=== PATIENT | male | born 1955 | race Caucasian/White ===

== ENCOUNTER 2017-03-19 19:00 | Inpatient (IN) | payer MEDICARE, OTHER ==
[~2017-03-19] VITALS: Ht 167.6 cm; Wt 61.3 kg
[~2017-03-19 19:00] MED LIST: ALB0.5UD IH; ALBU6.7H3 IH; ATR0.5NEB IH; ATRIN IH; BECL8.7A3 IH; CITA20TA11 PO; CYCL-394 PO; GABA-338 PO; HYDR-3965 PO; LEVO500T2 PO; OMEP-84 PO; PRED10TA23 PO; WEL100T PO; ZIPR60CA5 PO
[2017-03-19] MEDS ORDERED: acetaminophen 325mg tablet PO STA (19:18)
[2017-03-19] MEDS ORDERED: ipratropium/albuterol 3ml nebule NEB ONE (19:20)
[2017-03-19] MEDS ORDERED: normal saline 1000ML IV soln IV ONE (19:20)
[2017-03-19 20:03] LABS: ALANINE AMINOTRANSFERASE 27 U/L (12-78); ALBUMIN 3.2 G/DL (3.4-5.0); ALBUMIN/GLOBULIN RATIO 0.8 (1.1-1.5); ALKALINE PHOSPHATASE 81 IU/L (46-116); ANION GAP 7 (8-16); ASPARTATE AMINO TRANSFERASE 17 U/L (10-37); BILIRUBIN,TOTAL 0.3 MG/DL (0.1-1.0); BLOOD UREA NITROGEN 17 MG/DL (7-18); BUN/CREATININE RATIO 12.5 (5.4-32.0); CALCIUM 8.5 MG/DL (8.5-10.1); CHLORIDE 102 MMOL/L (99-107); CREATININE 1.36 MG/DL (0.60-1.10); GLUCOSE 160 MG/DL (70-104); POTASSIUM 4.2 MMOL/L (3.5-5.1); SODIUM 136 MMOL/L (135-145); TOTAL PROTEIN 7.1 G/DL (6.4-8.2); eGFR 53 ML/MIN
[2017-03-19 20:18] LABS: BASOPHILS % (AUTO) 0.4 % (0-1); EOSINOPHILS # (AUTO) 0.1 X10'3 (0-0.9); EOSINOPHILS % (AUTO) 0.8 % (0-6); HEMATOCRIT 29.6 % (42.0-52.0); HEMOGLOBIN 9.8 g/dl (14.0-17.9); LYMPHOCYTES # (AUTO) 1.9 X10'3 (1.1-4.8); LYMPHOCYTES % (AUTO) 29.3 % (21-51); MEAN CORPUSCULAR HEMOGLOBIN 27.8 PG (27.0-31.0); MEAN CORPUSCULAR HGB CONC 33.2 % (33.0-36.5); MEAN CORPUSCULAR VOLUME 83.6 FL (78-98); MEAN PLATELET VOLUME 8.5 FL (7.4-10.4); MONOCYTES # (AUTO) 1.1 X10'3 (0-0.9); MONOCYTES % (AUTO) 16.2 % (2-12); NEUTROPHILS # (AUTO) 3.5 X10'3 (1.8-7.7); NEUTROPHILS % (AUTO) 53.3 % (42-75); PLATELET COUNT 159 X10'3 (140-440); RED BLOOD COUNT 3.54 X10'6 (4.70-6.10); RED CELL DISTRIBUTION WIDTH 14.7 % (11.5-14.5); WHITE BLOOD COUNT 6.6 X10'3 (4.5-11.0)
[2017-03-19 20:29] LABS: INR 1.1 INR; PARTIAL THROMBOPLASTIN TIME 28 SECONDS (22-32); PROTHROMBIN TIME 11.2 SECONDS (9.0-12.0)
[2017-03-19] MEDS ORDERED: ondansetron/PF 4mg/2ml inj IV ONE (20:55)
[2017-03-19] MEDS ORDERED: ibuprofen tablet 400 MG TABLET PO ONE (20:55)
[2017-03-19] MEDS ORDERED: oseltamivir phos 75mg capsule PO ONE (21:20)
[2017-03-19] MEDS ORDERED: MESSAGE TO PHARMACY PO ONE (22:05)
[2017-03-19] MEDS ORDERED: dextrose 50%-water 50ml dispensing syringe IV PRN ×2 (22:05)
[2017-03-19] MEDS ORDERED: acetaminophen 325mg tablet PO PRN (22:05)
[2017-03-19] MEDS ORDERED: magnesium hydroxide 30ml (MOM) UD suspension PO PRN (22:05)
[2017-03-19] MEDS ORDERED: dextrose ORAL solution 15 GM/59 ML bottle PO PRN ×2 (22:05)
[2017-03-19] MEDS ORDERED: glucagon, human recombinant 1mg kit SUBCUT PRN (22:05)
[2017-03-19] MEDS ORDERED: mag hydrox/Alum hydrox/simeth 30ml oral suspension PO PRN (22:05)
[2017-03-19] MEDS ORDERED: ondansetron/PF 4mg/2ml inj IV PRN (22:05)
[2017-03-19] MEDS ORDERED: ipratropium/albuterol 3ml nebule NEB PRN (22:05)
[2017-03-19] MEDS ORDERED: methylPREDNISolone sod succ 125mg/2ml vial IV ONE (22:10)
[2017-03-19] MEDS: sodium chloride 0.45% 1,000 ML IV SCH (23:40)
[2017-03-20 00:18] LABS: CLARITY,URINE Cloudy (Clear); COLOR,URINE Yellow (Yellow); GLUCOSE, URINE Negative (Neg); KETONES,URINE Negative (Neg); LEUKOCYTE ESTERASE ,URINE Small (Neg); NITRITES, URINE Negative (Neg); OCCULT BLOOD,URINE Negative (Neg); PH,URINE 7.5 (4.8-8.0); PROTEIN,URINE Trace mg/dl (Neg)
[2017-03-20 00:19] LABS: UA COLLECTION TYPE CLN CATCH MIDSTREAM
[2017-03-20 00:24] LABS: BACTERIA,URINE 1+ /HPF (Neg); MUCUS STRANDS NONE SEEN /LPF (Neg); RBC,URINE NONE SEEN /HPF (0-2); SQUAMOUS EPITHELIAL CELL,UR NONE SEEN /LPF (FEW)
[2017-03-20] MEDS: methylPREDNISolone sod succ 125mg/2ml vial IV SCH ×4 (02:42→20:17)
[2017-03-20 07:02] LABS: BASOPHILS % (AUTO) 0 % (0-1); EOSINOPHILS # (AUTO) 0.1 X10'3 (0-0.9); EOSINOPHILS % (AUTO) 1.1 % (0-6); HEMATOCRIT 31.5 % (42.0-52.0); HEMOGLOBIN 10.4 g/dl (14.0-17.9); LYMPHOCYTES # (AUTO) 0.6 X10'3 (1.1-4.8); MEAN CORPUSCULAR HEMOGLOBIN 27.7 PG (27.0-31.0); MEAN CORPUSCULAR HGB CONC 32.9 % (33.0-36.5); MEAN CORPUSCULAR VOLUME 84.3 FL (78-98); MEAN PLATELET VOLUME 8.6 FL (7.4-10.4); MONOCYTES # (AUTO) 0.2 X10'3 (0-0.9); NEUTROPHILS % (AUTO) 85.9 % (42-75); PLATELET COUNT 207 X10'3 (140-440); RED BLOOD COUNT 3.74 X10'6 (4.70-6.10); RED CELL DISTRIBUTION WIDTH 14.5 % (11.5-14.5); WHITE BLOOD COUNT 5.8 X10'3 (4.5-11.0)
[2017-03-20 07:20] LABS: ANION GAP 10 (8-16); BLOOD UREA NITROGEN 17 MG/DL (7-18); BUN/CREATININE RATIO 14.3 (5.4-32.0); CALCIUM 7.8 MG/DL (8.5-10.1); CHLORIDE 106 MMOL/L (99-107); CREATININE 1.19 MG/DL (0.60-1.10); GLUCOSE 214 MG/DL (70-104); POTASSIUM 4.1 MMOL/L (3.5-5.1); SODIUM 139 MMOL/L (135-145); TOTAL CARBON DIOXIDE 23.1 MMOL/L (24-32); eGFR 62 ML/MIN
[2017-03-20] MEDS: enoxaparin 40mg/0.4ml syringe SUBCUT SCH (08:20)
[2017-03-20] MEDS: oseltamivir phos 75mg capsule PO SCH ×2 (08:20→20:16)
[2017-03-20] MEDS: sodium chloride 0.45% 1,000 ML IV SCH (08:22)
[2017-03-20] MEDS ORDERED: NO HOME MEDS (11:00)
[2017-03-20] MEDS: acetaminophen 325mg tablet PO PRN ×2 (14:04→22:11)
[2017-03-20 15:10] VITALS: BP 115/70
[2017-03-20 15:40] VITALS: BP 115/70
[2017-03-20 20:00] VITALS: BP 130/78
[2017-03-20] MEDS: Insulin Detemir pen SQ SCH (21:00)
[2017-03-20] MEDS: insulin Lispro (HumaLOG) vial - multi-dose SQ SCH (22:24)
[2017-03-21] VITALS: BP 119/65
[2017-03-21] MEDS ORDERED: vancomycin/NS 1 GM ADD-VANTAGE 250 ML IV ONE (03:25)
[2017-03-21] MEDS: methylPREDNISolone sod succ 125mg/2ml vial IV SCH ×5 (03:33→21:32)
[2017-03-21 06:03] LABS: BASOPHILS % (AUTO) 0.1 % (0-1); EOSINOPHILS # (AUTO) 0.3 X10'3 (0-0.9); EOSINOPHILS % (AUTO) 2.2 % (0-6); HEMATOCRIT 30.2 % (42.0-52.0); HEMOGLOBIN 9.9 g/dl (14.0-17.9); LYMPHOCYTES # (AUTO) 0.9 X10'3 (1.1-4.8); LYMPHOCYTES % (AUTO) 6.6 % (21-51); MEAN CORPUSCULAR HEMOGLOBIN 27.8 PG (27.0-31.0); MEAN CORPUSCULAR HGB CONC 32.8 % (33.0-36.5); MEAN CORPUSCULAR VOLUME 84.8 FL (78-98); MEAN PLATELET VOLUME 9.2 FL (7.4-10.4); MONOCYTES # (AUTO) 0.4 X10'3 (0-0.9); NEUTROPHILS # (AUTO) 12.5 X10'3 (1.8-7.7); NEUTROPHILS % (AUTO) 88.1 % (42-75); PLATELET COUNT 213 X10'3 (140-440); RED BLOOD COUNT 3.57 X10'6 (4.70-6.10); RED CELL DISTRIBUTION WIDTH 14.3 % (11.5-14.5); WHITE BLOOD COUNT 14.2 X10'3 (4.5-11.0)
[2017-03-21 06:10] LABS: ALBUMIN 2.9 G/DL (3.4-5.0); ANION GAP 8 (8-16); BLOOD UREA NITROGEN 29 MG/DL (7-18); BUN/CREATININE RATIO 24.6 (5.4-32.0); CALCIUM 8.2 MG/DL (8.5-10.1); CHLORIDE 107 MMOL/L (99-107); CREATININE 1.18 MG/DL (0.60-1.10); GLUCOSE 202 MG/DL (70-104); POTASSIUM 4.1 MMOL/L (3.5-5.1); SODIUM 138 MMOL/L (135-145); eGFR 63 ML/MIN
[2017-03-21 06:45] LABS: HEMOGLOBIN A1C 6.7 % (4.5-6.2)
[2017-03-21 07:00] VITALS: BP 114/71
[2017-03-21] MEDS ORDERED: lactobacillus rhamnosus 10,000 MMU CELLS/CAPSULE PO SCH (07:30)
[2017-03-21] MEDS: levoFLOXACIN-Levaquin 750MG/D5 150 ML IV SCH (08:36)
[2017-03-21] MEDS: enoxaparin 40mg/0.4ml syringe SUBCUT SCH (08:40)
[2017-03-21] MEDS ORDERED: FLU VACC QS2017-18 36MOS UP/PF 60 MCG/0.5 ML SYRINGE IMVAC ONE (10:00)
[2017-03-21] MEDS ORDERED: pneumococcal 23-VAL P-sac vacc 25 mcg/0.5ml vial IMVAC ONE (10:30)
[2017-03-21 11:40] VITALS: BP 129/86
[2017-03-21] MEDS: LACTOBACILLUS RHAMNOSUS GG 15 billion unit sprinkle caps PO SCH (12:03)
[2017-03-21] MEDS: oseltamivir phos 75mg capsule PO SCH ×2 (12:03→21:32)
[2017-03-21] MEDS: insulin Lispro (HumaLOG) vial - multi-dose SQ SCH (14:27)
[2017-03-21] MEDS: vancomycin/NS 1 GM ADD-VANTAGE 250 ML IV SCH (16:58)
[2017-03-21 20:00] VITALS: BP 121/72
[2017-03-21] MEDS: clindamycin phosphate inj 300 MG in dextrose 5%-water 50ml 48 ML IV SCH ×2 (20:00→21:32)
[2017-03-21] MEDS: Insulin Detemir pen SQ SCH (21:00)
[2017-03-22] VITALS: BP 110/60
[2017-03-22] MEDS: clindamycin phosphate inj 300 MG in dextrose 5%-water 50ml 48 ML IV SCH ×2 (03:57→11:02)
[2017-03-22] MEDS: methylPREDNISolone sod succ 125mg/2ml vial IV SCH ×2 (03:58→10:36)
[2017-03-22] MEDS: vancomycin/NS 1 GM ADD-VANTAGE 250 ML IV SCH (04:08)
[2017-03-22 05:59] LABS: BASOPHILS % (AUTO) 0.1 % (0-1); EOSINOPHILS # (AUTO) 0.1 X10'3 (0-0.9); EOSINOPHILS % (AUTO) 0.8 % (0-6); HEMATOCRIT 31.9 % (42.0-52.0); HEMOGLOBIN 10.4 g/dl (14.0-17.9); LYMPHOCYTES # (AUTO) 1.4 X10'3 (1.1-4.8); LYMPHOCYTES % (AUTO) 9.8 % (21-51); MEAN CORPUSCULAR HEMOGLOBIN 27.4 PG (27.0-31.0); MEAN CORPUSCULAR HGB CONC 32.5 % (33.0-36.5); MEAN CORPUSCULAR VOLUME 84.4 FL (78-98); MEAN PLATELET VOLUME 9.1 FL (7.4-10.4); MONOCYTES # (AUTO) 0.6 X10'3 (0-0.9); MONOCYTES % (AUTO) 4.3 % (2-12); NEUTROPHILS # (AUTO) 12.4 X10'3 (1.8-7.7); PLATELET COUNT 236 X10'3 (140-440); RED BLOOD COUNT 3.77 X10'6 (4.70-6.10); RED CELL DISTRIBUTION WIDTH 14.7 % (11.5-14.5); WHITE BLOOD COUNT 14.6 X10'3 (4.5-11.0)
[2017-03-22 06:15] LABS: ALBUMIN 2.7 G/DL (3.4-5.0); ANION GAP 6 (8-16); BLOOD UREA NITROGEN 33 MG/DL (7-18); BUN/CREATININE RATIO 29.2 (5.4-32.0); CALCIUM 8.4 MG/DL (8.5-10.1); CHLORIDE 106 MMOL/L (99-107); CREATININE 1.13 MG/DL (0.60-1.10); GLUCOSE 163 MG/DL (70-104); POTASSIUM 4.6 MMOL/L (3.5-5.1); SODIUM 138 MMOL/L (135-145); eGFR 66 ML/MIN
[2017-03-22 07:22] VITALS: BP 120/80
[2017-03-22] MEDS ORDERED: pantoprazole 40mg Tablet.DR PO SCH (07:30)
[2017-03-22] MEDS ORDERED: predniSONE 20 mg tablet PO SCH (09:00)
[2017-03-22] MEDS: LACTOBACILLUS RHAMNOSUS GG 15 billion unit sprinkle caps PO SCH (09:38)
[2017-03-22] MEDS: levoFLOXACIN-Levaquin 750MG/D5 150 ML IV SCH (09:39)
[2017-03-22] MEDS: oseltamivir phos 75mg capsule PO SCH (09:40)
[2017-03-22] MEDS: enoxaparin 40mg/0.4ml syringe SUBCUT SCH (09:40)
[2017-03-22] MEDS: insulin Lispro (HumaLOG) vial - multi-dose SQ SCH (09:48)
[2017-03-22 11:08] VITALS: BP 109/68
[2017-03-22] MEDS ORDERED: TAM75C PO (11:51)
[2017-03-22] MEDS ORDERED: OMEP20TA5 PO (11:51)
[2017-03-22] MEDS ORDERED: ALBU8.5H8 INH (11:51)
[2017-03-22] MEDS ORDERED: GLIP5TAB13 PO (11:51)
[2017-03-22] MEDS ORDERED: ADV50250 IH (11:51)
[2017-03-22] MEDS ORDERED: LEVO750T21 PO (11:51)
[2017-03-22] MEDS ORDERED: PRED20TA PO (11:51)
[2017-03-22] MEDS ORDERED: VANCOMYCIN LEVEL IV NR (15:30)
== END 2017-03-22 13:00 | disposition home or self-care (01) | DRG 871 ==
LOC: ER 19:01 → ED HOLD 22:01 → MED 3N 03-20 15:10
PROVIDERS: ADMIT Internal Medicine; ATTEND Family Medicine
DX: A41.9 Sepsis, unspecified organism (principal); J09.X1 Influenza due to identified novel influenza A virus with pneumonia; N17.9 Acute kidney failure, unspecified; J44.1 Chronic obstructive pulmonary disease with (acute) exacerbation; J15.9 Unspecified bacterial pneumonia; D64.9 Anemia, unspecified; E11.9 Type 2 diabetes mellitus without complications; B19.20 Unspecified viral hepatitis C without hepatic coma; E86.0 Dehydration; F15.10 Other stimulant abuse, uncomplicated; I25.10 Atherosclerotic heart disease of native coronary artery without angina pectoris; K21.9 Gastro-esophageal reflux disease without esophagitis; F32.9 Major depressive disorder, single episode, unspecified; F41.9 Anxiety disorder, unspecified; G89.29 Other chronic pain; M19.90 Unspecified osteoarthritis, unspecified site; M54.9 Dorsalgia, unspecified; F17.210 Nicotine dependence, cigarettes, uncomplicated; Z90.49 Acquired absence of other specified parts of digestive tract; Z95.1 Presence of aortocoronary bypass graft; Z91.048 Other nonmedicinal substance allergy status; Z87.01 Personal history of pneumonia (recurrent); Z83.3 Family history of diabetes mellitus; Z80.1 Family history of malignant neoplasm of trachea, bronchus and lung; Z80.8 Family history of malignant neoplasm of other organs or systems; Z71.6 Tobacco abuse counseling; Z23 Encounter for immunization
CPT/HCPCS: 36415; 71045; 80048; 80053; 81001; 82948; 83036; 83605; 83880; 84145; 84484; 85025; 85610; 85730; 87040; 87070; 87077; 87088; 87186; 87502; 87503; 90732; 93005; 94640; 94760; 96361; 96374; 99285; J1650; J1956; J2405; J2930; J3370; J3490; J7030; J7060; J7512

== ENCOUNTER 2018-11-11 12:32 | Inpatient (IN) | payer MEDICARE, MEDICAID ==
[~2018-11-11] VITALS: Ht 166.4 cm; Wt 56.1 kg
[~2018-11-11 12:32] MED LIST changes: -ALB0.5UD IH; -ALBU6.7H3 IH; +ALBU8.5H8 INH; -ATR0.5NEB IH; -ATRIN IH; -BECL8.7A3 IH; -CITA20TA11 PO; -CYCL-394 PO; -GABA-338 PO; +GLIP5TAB13 PO; -HYDR-3965 PO; -LEVO500T2 PO; +NO HOME MEDS; -OMEP-84 PO; +OMEP20TA5 PO; -PRED10TA23 PO; +PRED20TA PO; +TAM75C PO; -WEL100T PO; -ZIPR60CA5 PO
[2018-11-11] MEDS ORDERED: HYDROcodone/acetaminophen 10/325mg tab PO STA (13:15)
--- NOTE | 2018-11-11 13:33 | NUR ---
PATIENT NOT ON BLOOD THINNERS, NO LOC FELL DOWN 4-5 CONCRETE STEPS AXOX4
[2018-11-11] MEDS ORDERED: ondansetron/PF 4mg/2ml inj IV ONE (14:55)
[2018-11-11] MEDS ORDERED: fentaNYL/PF 50MCG/1 ML 2ML syringe IV ONE (14:55)
[2018-11-11 14:58] LABS: BASOPHILS # (AUTO) 0.1 X10'3 (0-0.2); BASOPHILS % (AUTO) 0.7 % (0-1); EOSINOPHILS # (AUTO) 0.2 X10'3 (0-0.9); EOSINOPHILS % (AUTO) 1.7 % (0-6); HEMOGLOBIN 10.9 g/dl (14.0-17.9); LYMPHOCYTES # (AUTO) 2.1 X10'3 (1.1-4.8); MEAN CORPUSCULAR HEMOGLOBIN 26.6 PG (27.0-31.0); MEAN CORPUSCULAR HGB CONC 32.9 g/dL (33.0-36.5); MEAN CORPUSCULAR VOLUME 80.7 FL (78-98); MEAN PLATELET VOLUME 8.4 FL (7.4-10.4); MONOCYTES # (AUTO) 0.8 X10'3 (0-0.9); MONOCYTES % (AUTO) 5.8 % (2-12); NEUTROPHILS # (AUTO) 10.5 X10'3 (1.8-7.7); NEUTROPHILS % (AUTO) 76.8 % (42-75); PLATELET COUNT 243 X10'3 (140-440); RED BLOOD COUNT 4.09 X10'6 (4.70-6.10); RED CELL DISTRIBUTION WIDTH 17.9 % (11.5-14.5); WHITE BLOOD COUNT 13.7 X10'3 (4.5-11.0)
[2018-11-11] MEDS ORDERED: magnesium 2GM in 50ml NS 50 ML IV PRN (15:10)
[2018-11-11] MEDS ORDERED: potassium Cl 20 mEq SR tablet PO PRN ×2 (15:10)
[2018-11-11] MEDS ORDERED: acetaminophen 325mg tablet PO PRN (15:10)
[2018-11-11] MEDS ORDERED: HYDROmorphone 1 mg/ml syringe IV PRN (15:10)
[2018-11-11] MEDS ORDERED: MESSAGE TO PHARMACY PO ONE (15:10)
[2018-11-11] MEDS ORDERED: dextrose ORAL solution 15 GM/59 ML bottle PO PRN ×2 (15:10)
[2018-11-11] MEDS ORDERED: magnesium 4gm in 100ml NS 100 ML IV PRN (15:10)
[2018-11-11] MEDS ORDERED: glucagon, human recombinant 1mg kit SUBCUT PRN (15:10)
[2018-11-11] MEDS ORDERED: potassium CL 10mEq/100ml bag 100 ML IV PRN ×2 (15:10)
[2018-11-11] MEDS ORDERED: insulin Lispro (HumaLOG) vial - multi-dose SQ SCH (15:10)
[2018-11-11] MEDS ORDERED: bisacodyl 10mg suppository rectal RC PRN (15:10)
[2018-11-11] MEDS ORDERED: dextrose 50%-water 50ml dispensing syringe IV PRN ×2 (15:10)
--- NOTE | 2018-11-11 15:45 | NUR ---
dr hester and hodan in room: patietn writhing around ratesleft hip pain 09/16
[2018-11-11 15:49] LABS: HEMOGLOBIN A1C 6.7 % (4.5-6.2)
[2018-11-11 15:52] LABS: PARTIAL THROMBOPLASTIN TIME 25 SECONDS (22-32)
[2018-11-11 15:53] LABS: ALANINE AMINOTRANSFERASE 28 U/L (12-78); ALBUMIN 3.5 G/DL (3.4-5.0); ALKALINE PHOSPHATASE 77 IU/L (46-116); ANION GAP 9 (8-16); ASPARTATE AMINO TRANSFERASE 26 U/L (10-37); BILIRUBIN,TOTAL 0.5 MG/DL (0.1-1.0); BLOOD UREA NITROGEN 20 MG/DL (7-18); BUN/CREATININE RATIO 14.8 (5.4-32.0); CALCIUM 8.6 MG/DL (8.5-10.1); CHLORIDE 106 MMOL/L (99-107); CREATININE 1.35 MG/DL (0.60-1.10); GLUCOSE 113 MG/DL (70-104); POTASSIUM 4.3 MMOL/L (3.5-5.1); SODIUM 140 MMOL/L (135-145); TOTAL CARBON DIOXIDE 25.3 MMOL/L (24-32); eGFR 54 ML/MIN
[2018-11-11] MEDS: nicotine 21mg patch - 24 hr TD SCH (17:34)
--- NOTE | 2018-11-11 17:35 | NUR ---
to floor monitored with jaren cheek
[2018-11-11 17:45] VITALS: BP_SYST 101; BP_SYST 111; BP_DIAS 48; BP_DIAS 75
[2018-11-11 18:14] LABS: URINE AMPHETAMINE SCREEN POSITIVE (Neg); URINE BARBITUATE SCREEN NEGATIVE (Neg); URINE BENZODIAZEPINES SCREEN NEGATIVE (Neg); URINE CANNABINOID SCREEN NEGATIVE (Neg); URINE COCAINE SCREEN NEGATIVE (Neg); URINE METHADONE SCREEN NEGATIVE (Neg); URINE OPIATE SCREEN POSITIVE (Neg); URINE PHENCYCLIDINE SCREEN NEGATIVE (Neg)
[2018-11-11 18:27] LABS: CLARITY,URINE CLEAR (Clear); COLOR,URINE YELLOW (Yellow); GLUCOSE, URINE NEGATIVE (Neg); KETONES,URINE TRACE mg/dl (Neg); LEUKOCYTE ESTERASE ,URINE NEGATIVE (Neg); NITRITES, URINE NEGATIVE (Neg); OCCULT BLOOD,URINE NEGATIVE (Neg); PROTEIN,URINE NEGATIVE (Neg); UROBILINOGEN,URINE 0.2 E.U/dL (0.2-1.0)
[2018-11-11 18:31] LABS: UA COLLECTION TYPE URINAL
--- NOTE | 2018-11-11 18:31 | NUR ---
Problems reprioritized. Patient report given, questions answered & plan of care reviewed with Britton MONTANO.
[2018-11-11] MEDS: HYDROcodone/acetaminophen 10/325mg tab PO PRN (19:31)
[2018-11-11] MEDS: budesonide 0.5mg/2ml UD nebule IH SCH (19:46)
[2018-11-11] MEDS: insulin glargine (Lantus) pen - multi-dose SQ SCH (21:00)
[2018-11-11 22:00] VITALS: BP 101/66
[2018-11-11] MEDS: normal saline 1000ml 1,000 ML IV SCH (22:57)
[2018-11-11] MEDS: HYDROmorphone inj. 0.5 MG/0.5 ML DISP.SYRIN IV PRN (22:57)
[2018-11-11] MEDS: diphenhydrAMINE 25mg capsule PO PRN (23:01)
[2018-11-12] VITALS (17 sets, daily range): BP systolic 97–140; BP diastolic 44–89
[2018-11-12] MEDS: HYDROcodone/acetaminophen 10/325mg tab PO PRN ×5 (02:03→21:27)
[2018-11-12] MEDS ORDERED: LIDOcaine 2% 10ml TOPICAL JELLY (Urojet) MM ONE (03:35)
[2018-11-12] MEDS: HYDROmorphone inj. 0.5 MG/0.5 ML DISP.SYRIN IV PRN (04:15)
--- NOTE | 2018-11-12 05:00 | NUR ---
noted pt low BP after dilaudid. 90/44. will continue to monitor.
[2018-11-12 06:11] LABS: BASOPHILS # (AUTO) 0.1 X10'3 (0-0.2); BASOPHILS % (AUTO) 0.6 % (0-1); EOSINOPHILS # (AUTO) 0.3 X10'3 (0-0.9); HEMATOCRIT 30.5 % (42.0-52.0); HEMOGLOBIN 10.2 g/dl (14.0-17.9); LYMPHOCYTES # (AUTO) 1.5 X10'3 (1.1-4.8); LYMPHOCYTES % (AUTO) 13.4 % (21-51); MEAN CORPUSCULAR HEMOGLOBIN 26.9 PG (27.0-31.0); MEAN CORPUSCULAR HGB CONC 33.4 g/dL (33.0-36.5); MEAN CORPUSCULAR VOLUME 80.6 FL (78-98); MEAN PLATELET VOLUME 8.4 FL (7.4-10.4); MONOCYTES # (AUTO) 0.7 X10'3 (0-0.9); MONOCYTES % (AUTO) 6.6 % (2-12); NEUTROPHILS # (AUTO) 8.3 X10'3 (1.8-7.7); NEUTROPHILS % (AUTO) 76.4 % (42-75); PLATELET COUNT 198 X10'3 (140-440); RED BLOOD COUNT 3.78 X10'6 (4.70-6.10); WHITE BLOOD COUNT 10.9 X10'3 (4.5-11.0)
[2018-11-12 06:16] LABS: % IRON SATURATION 26 % (11-46); IRON 59 UG/DL (53-167); TOTAL IRON BINDING CAPACITY 231 UG/DL (259-388)
[2018-11-12 06:24] LABS: ALANINE AMINOTRANSFERASE 31 U/L (12-78); ALBUMIN 3.1 G/DL (3.4-5.0); ALBUMIN/GLOBULIN RATIO 0.9 (1.1-1.5); ALKALINE PHOSPHATASE 70 IU/L (46-116); ANION GAP 9 (8-16); ASPARTATE AMINO TRANSFERASE 32 U/L (10-37); BILIRUBIN,TOTAL 0.5 MG/DL (0.1-1.0); BLOOD UREA NITROGEN 21 MG/DL (7-18); BUN/CREATININE RATIO 14.2 (5.4-32.0); CALCIUM 8.1 MG/DL (8.5-10.1); CHLORIDE 103 MMOL/L (99-107); CREATININE 1.48 MG/DL (0.60-1.10); GLUCOSE 94 MG/DL (70-104); MAGNESIUM 1.8 MG/DL (1.5-2.4); POTASSIUM 4.2 MMOL/L (3.5-5.1); SODIUM 136 MMOL/L (135-145); TOTAL PROTEIN 6.6 G/DL (6.4-8.2); eGFR 48 ML/MIN
--- NOTE | 2018-11-12 06:48 | NUR ---
order for 2 norco given. noted to reji low BP with dilaudid. CHARMAINE Cornelius aware of BP and took orders for 2 norco tabs.
--- NOTE | 2018-11-12 07:09 | NUR ---
Patient in room [facility]TH[facility] 4022. I have received report from Pb MONTANO and had the opportunity to ask questions and assume patient care.
[2018-11-12] MEDS: nicotine 21mg patch - 24 hr TD SCH (07:23)
[2018-11-12] MEDS: diphenhydrAMINE 25mg capsule PO PRN ×2 (07:23→18:28)
[2018-11-12] MEDS: enoxaparin 40mg/0.4ml syringe SQ SCH (07:24)
[2018-11-12] MEDS: K and/or MAG REPLACEMENT MC SCH (07:32)
[2018-11-12] MEDS: budesonide 0.5mg/2ml UD nebule IH SCH ×2 (07:49→19:32)
[2018-11-12] MEDS: normal saline 1000ml 1,000 ML IV SCH ×2 (10:59→22:04)
--- NOTE | 2018-11-12 12:17 | NUR ---
Joint consult: Pt admit for hip fx s/p fall positive for meth/opiates on admit. PO 100% first meals currently NPO to OR today. Hx DM A1C <7. LBM 11/11. No nutrition concerns at this time. Will monitor for additional protein needs post-op. Addendum: 11/12/18 at [address] Amended: Links added.
--- NOTE | 2018-11-12 13:32 | NUR ---
report given to pilar COKER RN
[2018-11-12] MEDS ORDERED: ceFAZolin 1GM/D5W- ADD-VANTAGE 50 ML IV ONE (14:00)
[2018-11-12] MEDS ORDERED: ePHEDrine 50MG/ML INJ. ONE (14:32)
[2018-11-12] MEDS ORDERED: ringers solution, lacted 1,000 ML IV SCH (14:32)
[2018-11-12] MEDS ORDERED: sevoflurane 250ml liquid IH ONE (14:32)
[2018-11-12] MEDS ORDERED: fentaNYL/PF 50MCG/1 ML 2ML syringe ONE (14:34)
[2018-11-12] MEDS ORDERED: morphine 4 MG/ML inj SYRINge IV PRN ×2 (14:35)
[2018-11-12] MEDS ORDERED: proCHLORperazine 10 MG/2 ml inj IV PRN (14:35)
[2018-11-12] MEDS ORDERED: meperidine/PF 25mg/ml syringe IV PRN ×3 (14:35)
[2018-11-12] MEDS ORDERED: ondansetron/PF 4mg/2ml inj IV PRN (14:35)
[2018-11-12] MEDS ORDERED: midazolam 2 mg/2 ml injection ONE (14:35)
[2018-11-12] MEDS ORDERED: propofol inj 20 ML IV ONE (15:16)
--- NOTE | 2018-11-12 15:30 | NUR ---
Received from OR via BED, accompanied by Anesthesiologist DR MATSON and report given by Anesthesiolgist. PATIENT WAKING UP, DENIES PAIN, V/S WNL ,CSM INTACT, 20G PIV TO BUE, F/C DRAINIGN CLEAR YELLOW URINE, SCD ON.
--- NOTE | 2018-11-12 16:08 | NUR ---
report received from ramiro from [facility]
--- NOTE | 2018-11-12 16:20 | NUR ---
PATIENT A&OX4, DENIES PAIN, V/S WNL ,CSM INTACT, 20G PIV TO BUE, F/C DRAINIGN CLEAR YELLOW URINE, SCD ON. PATIENT TAKEN TO ORTHO WITH ALL BELONGINGS AND HOOKED UP TO MONITORS IN ROOM AND REPORT GIVEN TO RN WHO HAS TAKEN OVER PATIENT CARE.
[2018-11-12] MEDS: ceFAZolin 1GM/D5W- ADD-VANTAGE 50 ML IV SCH ×2 (16:44→23:47)
--- NOTE | 2018-11-12 18:12 | NUR ---
Problems reprioritized. Patient report given, questions answered & plan of care reviewed with Mila MONTANO.
--- NOTE | 2018-11-12 18:15 | NUR ---
Patient in room [facility]TH[facility] 4022. I have received report from CHARMAINE Cornelius and had the opportunity to ask questions and assume patient care.
[2018-11-12] MEDS: ipratropium/albuterol 3ml nebule NEB PRN (19:32)
[2018-11-12] MEDS: insulin glargine (Lantus) pen - multi-dose SQ SCH (21:00)
[2018-11-13] VITALS (8 sets, daily range): BP systolic 96–118; BP diastolic 50–73
[2018-11-13] MEDS: diphenhydrAMINE 25mg capsule PO PRN ×2 (01:25→19:56)
[2018-11-13] MEDS: HYDROcodone/acetaminophen 10/325mg tab PO PRN ×3 (04:54→19:57)
--- NOTE | 2018-11-13 06:30 | NUR ---
Patient in room ORTHO 4022. I have received report from Mila and had the opportunity to ask questions and assume patient care.
--- NOTE | 2018-11-13 06:35 | NUR ---
Problems reprioritized. Patient report given, questions answered & plan of care reviewed with CHARMAINE Do.
[2018-11-13] MEDS: K and/or MAG REPLACEMENT MC SCH (08:00)
[2018-11-13] MEDS: enoxaparin 40mg/0.4ml syringe SQ SCH ×2 (08:00→08:06)
[2018-11-13] MEDS: nicotine 21mg patch - 24 hr TD SCH (08:07)
[2018-11-13] MEDS: budesonide 0.5mg/2ml UD nebule IH SCH ×2 (08:50→20:07)
[2018-11-13 09:21] LABS: BASOPHILS % (AUTO) 0.3 % (0-1); EOSINOPHILS # (AUTO) 0.3 X10'3 (0-0.9); EOSINOPHILS % (AUTO) 3.6 % (0-6); HEMOGLOBIN 9.9 g/dl (14.0-17.9); LYMPHOCYTES % (AUTO) 13.2 % (21-51); MEAN CORPUSCULAR HEMOGLOBIN 26.8 PG (27.0-31.0); MEAN CORPUSCULAR HGB CONC 32.8 g/dL (33.0-36.5); MEAN CORPUSCULAR VOLUME 81.8 FL (78-98); MEAN PLATELET VOLUME 8.1 FL (7.4-10.4); MONOCYTES # (AUTO) 0.7 X10'3 (0-0.9); MONOCYTES % (AUTO) 8.4 % (2-12); NEUTROPHILS # (AUTO) 5.8 X10'3 (1.8-7.7); NEUTROPHILS % (AUTO) 74.5 % (42-75); PLATELET COUNT 171 X10'3 (140-440); RED BLOOD COUNT 3.67 X10'6 (4.70-6.10); RED CELL DISTRIBUTION WIDTH 18.1 % (11.5-14.5); WHITE BLOOD COUNT 7.8 X10'3 (4.5-11.0)
[2018-11-13 09:30] LABS: ALANINE AMINOTRANSFERASE 26 U/L (12-78); ALBUMIN 2.7 G/DL (3.4-5.0); ALBUMIN/GLOBULIN RATIO 0.8 (1.1-1.5); ALKALINE PHOSPHATASE 62 IU/L (46-116); ANION GAP 8 (8-16); ASPARTATE AMINO TRANSFERASE 27 U/L (10-37); BILIRUBIN,TOTAL 0.3 MG/DL (0.1-1.0); BLOOD UREA NITROGEN 15 MG/DL (7-18); BUN/CREATININE RATIO 11.5 (5.4-32.0); CHLORIDE 103 MMOL/L (99-107); GLUCOSE 224 MG/DL (70-104); MAGNESIUM 1.8 MG/DL (1.5-2.4); POTASSIUM 4.1 MMOL/L (3.5-5.1); SODIUM 135 MMOL/L (135-145); TOTAL CARBON DIOXIDE 24.1 MMOL/L (24-32); TOTAL PROTEIN 6.3 G/DL (6.4-8.2); eGFR 56 ML/MIN
[2018-11-13] MEDS: normal saline 1000ml 1,000 ML IV SCH (12:19)
[2018-11-13] MEDS: mag hydrox/Alum hydrox/simeth 30ml oral suspension PO PRN (12:23)
--- NOTE | 2018-11-13 17:15 | NUR ---
PAGER ID: [phone] MESSAGE: Evans Cornelius, Mr. Blunt is requesting med for constipation, may we try MOM? Also, unable to obtain IV access, is it ok to leave IV out? Please advise, thank you Ernestina
[2018-11-13] MEDS ORDERED: magnesium hydroxide 30ml (MOM) UD suspension PO ONE (17:20)
--- NOTE | 2018-11-13 18:00 | NUR ---
Patient in room [facility]THO 4022. I have received report from scotty and had the opportunity to ask questions and assume patient care.
--- NOTE | 2018-11-13 18:18 | NUR ---
Problems reprioritized. Patient report given, questions answered & plan of care reviewed with Mila and Will.
[2018-11-13] MEDS: insulin glargine (Lantus) pen - multi-dose SQ SCH (21:00)
[2018-11-14] MEDS: diphenhydrAMINE 25mg capsule PO PRN ×2 (02:00→15:50)
[2018-11-14] MEDS: HYDROcodone/acetaminophen 10/325mg tab PO PRN ×3 (02:01→22:02)
[2018-11-14] MEDS: normal saline 1000ml 1,000 ML IV SCH (04:05)
[2018-11-14 05:57] LABS: BASOPHILS % (AUTO) 0.5 % (0-1); EOSINOPHILS # (AUTO) 0.4 X10'3 (0-0.9); EOSINOPHILS % (AUTO) 6.2 % (0-6); HEMATOCRIT 31.9 % (42.0-52.0); HEMOGLOBIN 10.5 g/dl (14.0-17.9); LYMPHOCYTES # (AUTO) 1.9 X10'3 (1.1-4.8); LYMPHOCYTES % (AUTO) 28.5 % (21-51); MEAN CORPUSCULAR HGB CONC 32.8 g/dL (33.0-36.5); MEAN CORPUSCULAR VOLUME 82.3 FL (78-98); MEAN PLATELET VOLUME 8.8 FL (7.4-10.4); MONOCYTES # (AUTO) 0.8 X10'3 (0-0.9); MONOCYTES % (AUTO) 11.6 % (2-12); NEUTROPHILS # (AUTO) 3.5 X10'3 (1.8-7.7); NEUTROPHILS % (AUTO) 53.2 % (42-75); PLATELET COUNT 187 X10'3 (140-440); RED BLOOD COUNT 3.87 X10'6 (4.70-6.10); RED CELL DISTRIBUTION WIDTH 18.2 % (11.5-14.5); WHITE BLOOD COUNT 6.7 X10'3 (4.5-11.0)
[2018-11-14 06:00] VITALS: BP 116/50
--- NOTE | 2018-11-14 06:15 | NUR ---
Patient in room ORTHO 4022. I have received report from Mila and Mervin and had the opportunity to ask questions and assume patient care.
[2018-11-14 06:19] LABS: ALANINE AMINOTRANSFERASE 21 U/L (12-78); ALBUMIN 2.7 G/DL (3.4-5.0); ALBUMIN/GLOBULIN RATIO 0.7 (1.1-1.5); ALKALINE PHOSPHATASE 59 IU/L (46-116); ANION GAP 6 (8-16); ASPARTATE AMINO TRANSFERASE 17 U/L (10-37); BILIRUBIN,TOTAL 0.3 MG/DL (0.1-1.0); BLOOD UREA NITROGEN 15 MG/DL (7-18); BUN/CREATININE RATIO 14.2 (5.4-32.0); CALCIUM 8.2 MG/DL (8.5-10.1); CHLORIDE 108 MMOL/L (99-107); CREATININE 1.06 MG/DL (0.60-1.10); GLUCOSE 110 MG/DL (70-104); MAGNESIUM 2.2 MG/DL (1.5-2.4); POTASSIUM 4.5 MMOL/L (3.5-5.1); SODIUM 140 MMOL/L (135-145); TOTAL CARBON DIOXIDE 25.9 MMOL/L (24-32); TOTAL PROTEIN 6.6 G/DL (6.4-8.2); eGFR 71 ML/MIN
--- NOTE | 2018-11-14 06:25 | NUR ---
Problems reprioritized. Patient report given, questions answered & plan of care reviewed with
[2018-11-14] MEDS: enoxaparin 40mg/0.4ml syringe SQ SCH ×2 (08:00→08:52)
[2018-11-14] MEDS: K and/or MAG REPLACEMENT MC SCH (08:00)
[2018-11-14] MEDS: nicotine 21mg patch - 24 hr TD SCH (08:52)
[2018-11-14] MEDS: ipratropium/albuterol 3ml nebule NEB PRN (09:57)
[2018-11-14] MEDS: budesonide 0.5mg/2ml UD nebule IH SCH ×2 (09:57→19:21)
[2018-11-14 10:00] VITALS: BP 97/53
[2018-11-14] MEDS: mag hydrox/Alum hydrox/simeth 30ml oral suspension PO PRN ×2 (15:47→19:36)
[2018-11-14 18:00] VITALS: BP 130/66
--- NOTE | 2018-11-14 18:00 | NUR ---
Patient in room [facility]THO 4022. I have received report from scotty and had the opportunity to ask questions and assume patient care.
--- NOTE | 2018-11-14 18:10 | NUR ---
Patient in room ORTHO 4022. I have received report from CHARMAINE Do and had the opportunity to ask questions and assume patient care.
--- NOTE | 2018-11-14 18:16 | NUR ---
Problems reprioritized. Patient report given, questions answered & plan of care reviewed with Mila and Will.
[2018-11-14] MEDS: insulin glargine (Lantus) pen - multi-dose SQ SCH (21:00)
[2018-11-14 22:00] VITALS: BP 146/85
[2018-11-15] MEDS: diphenhydrAMINE 25mg capsule PO PRN (01:50)
--- NOTE | 2018-11-15 06:29 | NUR ---
Problems reprioritized. Patient report given, questions answered & plan of care reviewed with CHARMAINE Gonzalez.
[2018-11-15 06:56] VITALS: BP 121/70
--- NOTE | 2018-11-15 07:04 | NUR ---
RECEIVED REPORT FROM ESTHER
[2018-11-15 07:05] LABS: BASOPHILS % (AUTO) 0.6 % (0-1); EOSINOPHILS # (AUTO) 0.5 X10'3 (0-0.9); EOSINOPHILS % (AUTO) 6.2 % (0-6); HEMATOCRIT 33.8 % (42.0-52.0); LYMPHOCYTES # (AUTO) 2.6 X10'3 (1.1-4.8); LYMPHOCYTES % (AUTO) 34.6 % (21-51); MEAN CORPUSCULAR HEMOGLOBIN 26.8 PG (27.0-31.0); MEAN CORPUSCULAR HGB CONC 32.6 g/dL (33.0-36.5); MEAN CORPUSCULAR VOLUME 82.3 FL (78-98); MEAN PLATELET VOLUME 8.4 FL (7.4-10.4); MONOCYTES # (AUTO) 0.9 X10'3 (0-0.9); MONOCYTES % (AUTO) 11.5 % (2-12); NEUTROPHILS # (AUTO) 3.6 X10'3 (1.8-7.7); NEUTROPHILS % (AUTO) 47.1 % (42-75); PLATELET COUNT 268 X10'3 (140-440); RED BLOOD COUNT 4.11 X10'6 (4.70-6.10); RED CELL DISTRIBUTION WIDTH 18.5 % (11.5-14.5); WHITE BLOOD COUNT 7.6 X10'3 (4.5-11.0)
[2018-11-15] MEDS: enoxaparin 40mg/0.4ml syringe SQ SCH ×2 (07:22→07:26)
[2018-11-15 07:24] LABS: ALANINE AMINOTRANSFERASE 23 U/L (12-78); ALBUMIN/GLOBULIN RATIO 0.7 (1.1-1.5); ALKALINE PHOSPHATASE 62 IU/L (46-116); ANION GAP 8 (8-16); ASPARTATE AMINO TRANSFERASE 19 U/L (10-37); BILIRUBIN,TOTAL 0.3 MG/DL (0.1-1.0); BLOOD UREA NITROGEN 20 MG/DL (7-18); BUN/CREATININE RATIO 17.1 (5.4-32.0); CALCIUM 8.8 MG/DL (8.5-10.1); CHLORIDE 104 MMOL/L (99-107); CREATININE 1.17 MG/DL (0.60-1.10); GLUCOSE 121 MG/DL (70-104); MAGNESIUM 2.3 MG/DL (1.5-2.4); POTASSIUM 4.6 MMOL/L (3.5-5.1); SODIUM 139 MMOL/L (135-145); TOTAL CARBON DIOXIDE 26.9 MMOL/L (24-32); TOTAL PROTEIN 7.1 G/DL (6.4-8.2); eGFR 63 ML/MIN
[2018-11-15] MEDS: nicotine 21mg patch - 24 hr TD SCH (07:26)
[2018-11-15] MEDS: HYDROcodone/acetaminophen 10/325mg tab PO PRN (07:28)
[2018-11-15] MEDS: K and/or MAG REPLACEMENT MC SCH (08:00)
[2018-11-15] MEDS: budesonide 0.5mg/2ml UD nebule IH SCH ×2 (09:41→19:29)
[2018-11-15] MEDS: ipratropium/albuterol 3ml nebule NEB PRN (09:41)
[2018-11-15] MEDS: mag hydrox/Alum hydrox/simeth 30ml oral suspension PO PRN (10:49)
[2018-11-15 17:00] VITALS: BP 113/66
--- NOTE | 2018-11-15 18:09 | NUR ---
Report given to Julianna
--- NOTE | 2018-11-15 18:10 | NUR ---
Patient in room ORTH[facility] 4022. I have received report from Lisa MONTANO and had the opportunity to ask questions and assume patient care.
[2018-11-15] MEDS ORDERED: magnesium hydroxide 30ml (MOM) UD suspension PO ONE (19:05)
[2018-11-15] MEDS: insulin glargine (Lantus) pen - multi-dose SQ SCH (21:00)
[2018-11-15] MEDS: mineral oil 133ml enema RC PRN (21:50)
[2018-11-15 22:00] VITALS: BP 114/71
--- NOTE | 2018-11-15 22:42 | NUR ---
Paged Dr. Maggie Sarkar MESSAGE: Isabel Blunt [phone]- L hip fx; complaining of severe abd pain, N/V, constipation. Pt had suppository today with 1 small BM. Had MOM (he vomited it up) + a mineral enema today with no results. Lower abd is tender and nondistended. -Julianna [phone]
--- NOTE | 2018-11-15 23:00 | NUR ---
Paged Dr. Maggie Sarkar MESSAGE: Pt Isabel Blunt [phone]- Can I get Zofran SL? Pt has no IV and has N/V. Julianna [phone]
[2018-11-15] MEDS ORDERED: ondansetron 4mg rapidly disintigrating tab PO PRN (23:05)
[2018-11-16] VITALS (27 sets, daily range): BP systolic 99–162; BP diastolic 47–91
[2018-11-16] MEDS ORDERED: iohexol 300mg/ml 100ml inj. ONE (00:15)
--- NOTE | 2018-11-16 00:49 | NUR ---
Pt sent down to CT for CT scan of abd and pelvis.
--- NOTE | 2018-11-16 01:04 | NUR ---
Pt in room 4022B, returned from CT scan.
[2018-11-16] MEDS: mineral oil 133ml enema RC PRN (01:05)
[2018-11-16] MEDS: LORazepam 2 mg/ml vial IV PRN (04:57)
--- NOTE | 2018-11-16 05:24 | NUR ---
Attempted to insert NG tube. Pt vomited throughout the attempt. Pt refuses further attempts unless he is put to sleep while it is done. Maggie notified, says it is okay and nursing will need to follow up with Clary in the AM.
[2018-11-16 05:32] LABS: BASOPHILS % (AUTO) 0.5 % (0-1); EOSINOPHILS % (AUTO) 0.5 % (0-6); HEMATOCRIT 36.9 % (42.0-52.0); HEMOGLOBIN 12.2 g/dl (14.0-17.9); LYMPHOCYTES # (AUTO) 1.5 X10'3 (1.1-4.8); LYMPHOCYTES % (AUTO) 16.1 % (21-51); MEAN CORPUSCULAR HEMOGLOBIN 26.9 PG (27.0-31.0); MEAN CORPUSCULAR HGB CONC 33.1 g/dL (33.0-36.5); MEAN CORPUSCULAR VOLUME 81.1 FL (78-98); MEAN PLATELET VOLUME 8.9 FL (7.4-10.4); MONOCYTES # (AUTO) 0.7 X10'3 (0-0.9); NEUTROPHILS # (AUTO) 7.2 X10'3 (1.8-7.7); NEUTROPHILS % (AUTO) 75.9 % (42-75); PLATELET COUNT 295 X10'3 (140-440); RED BLOOD COUNT 4.56 X10'6 (4.70-6.10); RED CELL DISTRIBUTION WIDTH 18.4 % (11.5-14.5); WHITE BLOOD COUNT 9.5 X10'3 (4.5-11.0)
[2018-11-16 05:49] LABS: ALANINE AMINOTRANSFERASE 22 U/L (12-78); ALBUMIN 3.4 G/DL (3.4-5.0); ALBUMIN/GLOBULIN RATIO 0.8 (1.1-1.5); ALKALINE PHOSPHATASE 71 IU/L (46-116); ANION GAP 9 (8-16); ASPARTATE AMINO TRANSFERASE 19 U/L (10-37); BILIRUBIN,TOTAL 0.3 MG/DL (0.1-1.0); BLOOD UREA NITROGEN 29 MG/DL (7-18); BUN/CREATININE RATIO 22.8 (5.4-32.0); CALCIUM 9.5 MG/DL (8.5-10.1); CHLORIDE 100 MMOL/L (99-107); CREATININE 1.27 MG/DL (0.60-1.10); GLUCOSE 153 MG/DL (70-104); MAGNESIUM 2.8 MG/DL (1.5-2.4); POTASSIUM 4.8 MMOL/L (3.5-5.1); SODIUM 138 MMOL/L (135-145); TOTAL CARBON DIOXIDE 29.3 MMOL/L (24-32); TOTAL PROTEIN 7.8 G/DL (6.4-8.2); eGFR 58 ML/MIN
--- NOTE | 2018-11-16 06:14 | NUR ---
Problems reprioritized. Patient report given, questions answered & plan of care reviewed with Adryan MONTANO.
[2018-11-16] MEDS: ondansetron/PF 4mg/2ml inj IV PRN ×2 (06:26→11:01)
--- NOTE | 2018-11-16 06:56 | NUR ---
Patient in room [facility]THO 4022. I have received report from Julianna MONTANO and had the opportunity to ask questions and assume patient care.
[2018-11-16] MEDS: K and/or MAG REPLACEMENT MC SCH (07:00)
[2018-11-16] MEDS: enoxaparin 40mg/0.4ml syringe SQ SCH ×2 (07:03→08:00)
[2018-11-16] MEDS: nicotine 21mg patch - 24 hr TD SCH (07:22)
[2018-11-16] MEDS: budesonide 0.5mg/2ml UD nebule IH SCH ×2 (08:00→19:53)
[2018-11-16] MEDS ORDERED: normal saline 1000ml 1,000 ML IV ONE ×2 (10:05)
[2018-11-16] MEDS ORDERED: ceFOXitin 2 GM ADDvantage bag 100 ML IV ONE (10:20)
--- NOTE | 2018-11-16 10:20 | NUR ---
Initial: Noted patient has order for NG placement for suction, per nursing note 11/16 at 0524 patient vomiting during placement and now refuses additional attempt unless he is asleep. Per nursing notes patient had c/o severe abdominal pain, nausea, vomiting, and constipation. Pt received suppository and had one small BM. Had received milk of magnesia and had vomited it, also received mineral enema. Per MD note patient's KUB showed possible bowel obstruction and CT revealed high grade SBO. Pt should be NPO, has active diet order, discussed with RN recommending to d/c diet order and make NPO. Patient is s/p closed reduction percutaneous pinning left hip 11/12. Seen by RD for written high protein education. Was eating 100% of meals prior to being made NPO this morning. Recommend: 1. NPO per MD 2. Advance diet as medically indicated when SBO resolved, recommend carb controlled diet when indicated 3. bowel care as needed 4. weight per rx Addendum: 11/16/18 at [address] Amended: Links added.
[2018-11-16] MEDS ORDERED: midazolam 2 mg/2 ml injection ONE (10:34)
[2018-11-16] MEDS ORDERED: fentaNYL /PF 50mcg/ml 5ml ampule ONE (10:34)
[2018-11-16] MEDS ORDERED: gentamicin 40 MG/1 ML inj ONE (10:38)
[2018-11-16] MEDS ORDERED: clindamycin phosphate 150mg/ml inj. ONE (10:38)
[2018-11-16] MEDS ORDERED: ringers solution, lacted 1,000 ML IV SCH (10:51)
[2018-11-16] MEDS ORDERED: morphine 4 MG/ML inj SYRINge IV PRN ×2 (10:55)
[2018-11-16] MEDS ORDERED: ondansetron/PF 4mg/2ml inj IV PRN (10:55)
[2018-11-16] MEDS ORDERED: meperidine/PF 25mg/ml syringe IV PRN ×3 (10:55)
--- NOTE | 2018-11-16 11:00 | NUR ---
patient went to surgery report given to recovery
[2018-11-16] MEDS ORDERED: DOPamine/D5W 400mg/250ml bag IV ONE ×2 (11:08→13:33)
[2018-11-16] MEDS ORDERED: sevoflurane 250ml liquid IH ONE (11:08)
[2018-11-16] MEDS ORDERED: ceFOXitin 2 GM ADDVANTGE BAG 50 ML IV ONE (11:31)
[2018-11-16] MEDS ORDERED: rocuronium 10mg/ml inj IV ONE ×2 (12:31→12:51)
[2018-11-16] MEDS ORDERED: LIDOcaine 2% (20mg/ml) 5ml vial ONE (12:31)
[2018-11-16] MEDS ORDERED: propofol inj 20 ML IV ONE (12:31)
--- NOTE | 2018-11-16 14:10 | NUR ---
Received from OR via BED, accompanied by Anesthesiologist DR BLEDSOE and report given by Anesthesiolgist. PT SEDATED INTUBATED, RT HERE ATTACHED PT TO VENT, 7.5 ETT 23 AT TEETH, ABDOMEN W/G-TUBE ATTACHED TO DRAINAGE BAG, NO DRAINAGE, ARVIZU CATHETER TO GRAVITY DRAINAGE W/MIMI MARTINEZ, ABDOMEN W/MEDIPORE TAPE COVERING ABD PADS, CDI, PT AWAKENS IS ANXIOUS, RESTLESS, SHAKES HEAD BACK AND FORTH, SQUEEZES HAND BUT NOT FOLLOWING COMMANDS, APPEARS PAINFUL AND ANXIOUS, PAIN MEDS AND DIPRIVAN STARTED, ABG DRAWN AND VENT SETTINGS CHANGED AFTER RESULTS REVIEWED. Addendum: 11/16/18 at 1541 by Humaira Spencer RN Amended: Links added. Addendum: 11/16/18 at 1604 by Humaira Spencer RN LATE NOTE, ETT AT 22 AT TEETH, NOT 23.
[2018-11-16] MEDS ORDERED: phenylephrine 10mg/ml inj. ONE (14:35)
[2018-11-16] MEDS: FENTANYL-0.9 % NACL/PF 100 ML IV PRN ×2 (14:53→23:39)
[2018-11-16] MEDS ORDERED: propofol 1000mg/100ml bottle 100 ML IV ONE (15:01)
[2018-11-16 15:05] LABS: ABG HCO3 21.2 mmol/L (22.0-26.0); ABG OXYGEN SATURATION 99.5 % (95-98); ABG PH (T) 7.547 (7.350-7.450); ABG PO2 (T) 504.3 mmHg (83-108); FCOHb 0.3 % (0.5-1.5); FLOW 50 L/min; FMetHb 0.3 % (0.3-1.12); FO2Hb 98.9 % (94-100); PEEP 5 cm H2O; RESPIRATORY RATE 14 b/min; RESPIRATORY RATE (OBSERVED) 33 b/min; TIDAL VOLUME 550 mL; TOTAL HEMOGLOBIN 11.3 G/dl (14.0-17.9)
[2018-11-16] MEDS: propofol 1000mg/100ml bottle 100 ML IV SCH ×2 (15:05→19:41)
--- NOTE | 2018-11-16 16:20 | NUR ---
PT STABLE, NODS HEAD YES/NO APPROPRIATELY, INCREASED FENTANYL DRIP FOR PAIN. Report called to receiving nurse. Transferred via BED ON CM, RT BAGGED PT, NO Belongings, RECEIVING RN AT BEDSIDE TO RECEIVE PT. Special Issues communicated to receiving nurse. YES. Addendum: 11/16/18 at 1641 by Humaira Spencer RN Amended: Links added.
[2018-11-16 17:10] LABS: ABG HCO3 23.7 mmol/L (22.0-26.0); ABG OXYGEN SATURATION 98.8 % (95-98); ABG PH (T) 7.448 (7.350-7.450); FCOHb 0.3 % (0.5-1.5); FMetHb 0.4 % (0.3-1.12); FO2Hb 98.1 % (94-100); MINUTE VOLUME 9 L/min; PEEP 5 cm H2O; RESPIRATORY RATE 12 b/min; RESPIRATORY RATE (OBSERVED) 24 b/min; TIDAL VOLUME 421 mL; TOTAL HEMOGLOBIN 11.6 G/dl (14.0-17.9)
--- NOTE | 2018-11-16 19:29 | NUR ---
RT paged for re check on ET Tube placement. Tube is currently at 21 cm at the lip. Addendum: 11/17/18 at 0053 by Ami Gudino RN Late entry: RT at bedside quickly. Tube repositioned to be 22cm at the lip as previously charted. Patient with improved tidal volumes. lung sounds clear and equal bilaterally. Will continue to monitor.
[2018-11-16] MEDS: Potassium Cl inj 20 MEQ in ringers solution, lacted 1,000 ML IV SCH ×2 (19:31→22:20)
[2018-11-16] MEDS: ipratropium/albuterol 3ml nebule NEB PRN (19:53)
[2018-11-16] MEDS: insulin glargine (Lantus) pen - multi-dose SQ SCH (21:00)
--- NOTE | 2018-11-16 21:00 | NUR ---
Spoke with Elisa Hardy NP re: Propofol almost at max dose, patient continues to be difficult to sedate. Advised to continue titrating current drips as ordered. no new orders given.
[2018-11-17] VITALS (23 sets, daily range): BP systolic 72–159; BP diastolic 47–78
[2018-11-17] MEDS: propofol 1000mg/100ml bottle 100 ML IV SCH (01:29)
--- NOTE | 2018-11-17 03:00 | NUR ---
Spoke with Elisa Hardy NP re patients lower urine output. She will place order for Albumin.
[2018-11-17] MEDS ORDERED: albumin (Human) 5% 250ml 250 ML IV ONE ×2 (03:25→04:35)
[2018-11-17] MEDS: Potassium Cl inj 20 MEQ in ringers solution, lacted 1,000 ML IV SCH (03:46)
[2018-11-17 03:52] LABS: BASOPHILS % (AUTO) 0.5 % (0-1); EOSINOPHILS % (AUTO) 0.4 % (0-6); HEMATOCRIT 29.5 % (42.0-52.0); HEMOGLOBIN 9.8 g/dl (14.0-17.9); LYMPHOCYTES # (AUTO) 1.5 X10'3 (1.1-4.8); LYMPHOCYTES % (AUTO) 15.5 % (21-51); MEAN CORPUSCULAR HGB CONC 33.2 g/dL (33.0-36.5); MEAN CORPUSCULAR VOLUME 81.3 FL (78-98); MEAN PLATELET VOLUME 8.3 FL (7.4-10.4); MONOCYTES # (AUTO) 0.9 X10'3 (0-0.9); MONOCYTES % (AUTO) 9.3 % (2-12); NEUTROPHILS # (AUTO) 7.4 X10'3 (1.8-7.7); NEUTROPHILS % (AUTO) 74.3 % (42-75); PLATELET COUNT 259 X10'3 (140-440); RED BLOOD COUNT 3.62 X10'6 (4.70-6.10); RED CELL DISTRIBUTION WIDTH 18.4 % (11.5-14.5); WHITE BLOOD COUNT 9.9 X10'3 (4.5-11.0)
[2018-11-17 04:01] LABS: ALBUMIN 2.3 G/DL (3.4-5.0); ANION GAP 5 (8-16); BLOOD UREA NITROGEN 35 MG/DL (7-18); BUN/CREATININE RATIO 15.6 (5.4-32.0); CALCIUM 6.9 MG/DL (8.5-10.1); CHLORIDE 108 MMOL/L (99-107); CREATININE 2.25 MG/DL (0.60-1.10); GLUCOSE 143 MG/DL (70-104); MAGNESIUM 2.4 MG/DL (1.5-2.4); POTASSIUM 5.9 MMOL/L (3.5-5.1); SODIUM 140 MMOL/L (135-145); TOTAL CARBON DIOXIDE 26.9 MMOL/L (24-32); eGFR 30 ML/MIN
[2018-11-17 04:15] LABS: ABG BASE EXCESS -0.1 mmol/L (-2.0-3.0); ABG HCO3 23.2 mmol/L (22.0-26.0); ABG OXYGEN SATURATION 97.5 % (95-98); ABG PCO2 (T) 33.5 mmHg (35.0-45.0); ABG PH (T) 7.459 (7.350-7.450); ABG PO2 (T) 114.4 mmHg (83-108); FCOHb 0.3 % (0.5-1.5); FMetHb 0.4 % (0.3-1.12); FO2Hb 96.8 % (94-100); MINUTE VOLUME 10 L/min; PATIENT TEMPERATURE 37.5; PEEP 5 cm H2O; RESPIRATORY RATE 12 b/min; RESPIRATORY RATE (OBSERVED) 27 b/min; TIDAL VOLUME 400 mL; TOTAL HEMOGLOBIN 9.9 G/dl (14.0-17.9)
[2018-11-17] MEDS ORDERED: ringers solution, lacted 1,000 ML IV SCH (04:45)
[2018-11-17] MEDS ORDERED: DOPamine 400mg/D5W 250ml 250 ML IV SCH (04:55)
[2018-11-17 05:01] LABS: PHOSPHORUS 4.1 MG/DL (2.3-4.5)
--- NOTE | 2018-11-17 05:30 | NUR ---
[id number]: Patient continues to require Propofol and Fentanyl for sedation and pain control. Patient awakens agitated and restless, pulling at restraints and moves head quickly back and forth. Respiratory rate increases. Patient nods head "yes" in response to "are you in pain?" question. Boluses administered with relief of pain and decrease in restlessness. Patients urine output decreasing, consulting Isabel Hardy NP.
[2018-11-17] MEDS ORDERED: ringers solution, lacted 1,000 ML IV ONE (05:45)
[2018-11-17 05:54] LABS: SODIUM,URINE RANDOM < 15 MEQ/L
[2018-11-17] MEDS ORDERED: calcium gluconate inj. 1 GM in normal saline 100ml IV soln 90 ML IV ONE (06:20)
--- NOTE | 2018-11-17 06:30 | NUR ---
Problems reprioritized. Patient report given, questions answered & plan of care reviewed with CHARMAINE Moy.
--- NOTE | 2018-11-17 06:30 | NUR ---
Patient in room CICU 2009. I have received report from Helena MONTANO and had the opportunity to ask questions and assume patient care.
[2018-11-17 06:40] LABS: UA EOSINOPHILS NO EOS /HPF
[2018-11-17] MEDS ORDERED: albuterol 2.5 MG/3 ML nebule CONTNEB STA (07:12)
[2018-11-17] MEDS ORDERED: insulin regular, human 10 units/0.1 ml syringe IV ONE (07:15)
[2018-11-17] MEDS ORDERED: NORepinephrine 8mg/ 250ml NS 250 ML IV SCH (07:15)
[2018-11-17] MEDS ORDERED: dextrose 50%-water 50ml dispensing syringe IV ONE (07:15)
[2018-11-17] MEDS: sodium chloride 0.45% 1,000 ML IV SCH ×2 (07:36→15:31)
[2018-11-17] MEDS: enoxaparin 40mg/0.4ml syringe SQ SCH (07:41)
[2018-11-17] MEDS: K and/or MAG REPLACEMENT MC SCH (07:41)
[2018-11-17] MEDS: nicotine 21mg patch - 24 hr TD SCH (07:41)
--- NOTE | 2018-11-17 08:51 | NUR ---
Dr. Washington at bedside with pt for evaluation, new orders received.
--- NOTE | 2018-11-17 09:41 | NUR ---
Paul RT at bedside with pt for extubation per Dr. Sepulveda. Pt is alert, oriented, and anxious, eager to have ET removed. Pt extubated at 0943, no stridor, no dyspnea, saturating appropriately on RA.
[2018-11-17 10:26] LABS: ALANINE AMINOTRANSFERASE 21 U/L (12-78); ALBUMIN 2.5 G/DL (3.4-5.0); ALBUMIN/GLOBULIN RATIO 0.9 (1.1-1.5); ALKALINE PHOSPHATASE 39 IU/L (46-116); ANION GAP 7 (8-16); ASPARTATE AMINO TRANSFERASE 27 U/L (10-37); BILIRUBIN,TOTAL 0.3 MG/DL (0.1-1.0); BLOOD UREA NITROGEN 34 MG/DL (7-18); BUN/CREATININE RATIO 15.5 (5.4-32.0); CALCIUM 7.3 MG/DL (8.5-10.1); CHLORIDE 108 MMOL/L (99-107); CREATININE 2.19 MG/DL (0.60-1.10); GLUCOSE 134 MG/DL (70-104); POTASSIUM 4.3 MMOL/L (3.5-5.1); SODIUM 140 MMOL/L (135-145); TOTAL CARBON DIOXIDE 25.2 MMOL/L (24-32); TOTAL PROTEIN 5.2 G/DL (6.4-8.2); eGFR 31 ML/MIN
[2018-11-17] MEDS: LORazepam 2 mg/ml vial IV PRN (10:29)
[2018-11-17] MEDS: HYDROmorphone inj. 0.5 MG/0.5 ML DISP.SYRIN IV PRN ×4 (10:30→22:01)
[2018-11-17] MEDS: budesonide 0.5mg/2ml UD nebule IH SCH ×2 (10:49→19:29)
[2018-11-17] MEDS: ipratropium/albuterol 3ml nebule NEB PRN ×3 (10:50→23:22)
[2018-11-17] MEDS: duloxetine 30mg CAPSULE.DR PO SCH (11:00)
--- NOTE | 2018-11-17 12:03 | NUR ---
TPN: TPN consult received. Patient is s/p exploratory laparotomy, internal hernia repair, and gastrostomy tube placement. Per bedside RN the G-tube is not for feeding, being used for drain? No history of difficulty swallowing. Pt is currently NPO. Per MD note patient's KUB showed possible bowel obstruction and CT revealed high grade SBO. Per surgeon note patient had SBO with peritonitis. TPN recs below. Recommend: 1. Continuous 2:1 TPN using Clinimix E 5/20 at 75 ml/hr goal rate will provide total volume 1800 ml. 2. Separate 20% intralipids to run to 12 hours daily at 15 ml/hr to provide total volume of 180 ml, will provide 36 gm lipids 3. Total from above will provide total 1944 cals, 90 g protein, and 4.09 mg/kg/min CHO loading. 4. Prealbumin and TG q friday and 5. Advance diet as medically indicated to carb controlled 6. Daily weight Addendum: 11/17/18 at [address] Amended: Links added.
[2018-11-17] MEDS ORDERED: Trace element-5 inj. 1 ML in AA 5 %/CALCIUM/LYTES/DEXT 20% 2,000 ML IV SCH (14:02)
[2018-11-17] MEDS ORDERED: Dextrose 10%-water IV solution 1,000 ML IV PRN (14:02)
[2018-11-17] MEDS ORDERED: potassium Cl 20 mEq SR tablet PO PRN ×2 (14:05)
[2018-11-17] MEDS ORDERED: magnesium Cl slow-release 64mg tablet PO PRN (14:05)
[2018-11-17] MEDS ORDERED: magnesium 2GM in 50ml NS 50 ML IV PRN (14:05)
[2018-11-17] MEDS ORDERED: Neutra Phos packet PO PRN (14:05)
[2018-11-17] MEDS: K, MAG and/or Phos replacement - Verify level? MC SCH (14:05)
[2018-11-17] MEDS ORDERED: magnesium 4gm in 100ml NS 100 ML IV PRN (14:05)
[2018-11-17] MEDS ORDERED: sodium phosphate inj. 30 MMOL in dextrose 5%-water 250 ML IV PRN (14:05)
[2018-11-17] MEDS ORDERED: sodium phosphate inj. 15 MMOL in dextrose 5%-water 150 ML IV PRN (14:05)
[2018-11-17] MEDS ORDERED: potassium Cl 20mEq/100mL bag 100 ML IV PRN ×2 (14:05)
[2018-11-17] MEDS: Trace element-5 inj. 1 ML in AA 5 %/CALCIUM/LYTES/DEXT 20% 2,000 ML IV SCH (15:31)
--- NOTE | 2018-11-17 18:26 | NUR ---
Problems reprioritized. Patient report given, questions answered & plan of care reviewed with Helena MONTANO.
--- NOTE | 2018-11-17 18:30 | NUR ---
Patient in room CICU 2009. I have received report from CHARMAINE Moy and had the opportunity to ask questions and assume patient care.
[2018-11-17] MEDS ORDERED: acetaminophen 650mg rectal suppository RC PRN ×2 (19:25)
[2018-11-17] MEDS: mineral oil/petrolatum ophthal oint EACHEYE SCH (19:28)
[2018-11-17] MEDS: fat emulsion IV bag 180 ML IV SCH (20:46)
[2018-11-17] MEDS: insulin glargine (Lantus) pen - multi-dose SQ SCH (21:00)
[2018-11-18] VITALS (20 sets, daily range): BP systolic 114–148; BP diastolic 58–83
--- NOTE | 2018-11-18 | NUR ---
[id number]: Patient c/o difficulty breathing. Found to have wheezing and trouble coughing and clearing secretion. Incentive Spirometry and Flutter valve education provided to patient. Patient has a difficult time with use, poor inhalation and breath hold. Will continue to encourage use throughout shift. Patient has suction at bedside and uses it to clear thick yellow secretions from airway. Oxygen saturation remains in the mid to high 90's on room air. RT at bedside for treatment. Patient with increased air movement. Patient c/o abdominal pain that is preventing him from coughing well. Pillow provided to patient to splint area during coughs with mild relief. 1914 spoke with Elisa Hardy NP re: patients respiratory status. RT has PRN orders currently. No new orders at this time.
[2018-11-18] MEDS: mineral oil/petrolatum ophthal oint EACHEYE SCH ×4 (00:03→20:00)
[2018-11-18] MEDS: sodium chloride 0.45% 1,000 ML IV SCH ×2 (01:03→07:53)
[2018-11-18] MEDS: HYDROmorphone inj. 0.5 MG/0.5 ML DISP.SYRIN IV PRN (01:46)
[2018-11-18] MEDS: ipratropium/albuterol 3ml nebule NEB PRN ×3 (02:54→20:11)
[2018-11-18] MEDS: MVI, adult No.4 with vit. K 10 ML in dextrose 5% water 500ml 490 ML IV SCH ×2 (03:24)
[2018-11-18 03:40] LABS: BASOPHILS % (AUTO) 0.4 % (0-1); EOSINOPHILS # (AUTO) 0.2 X10'3 (0-0.9); EOSINOPHILS % (AUTO) 2.5 % (0-6); HEMATOCRIT 24.8 % (42.0-52.0); HEMOGLOBIN 8.3 g/dl (14.0-17.9); LYMPHOCYTES # (AUTO) 1.1 X10'3 (1.1-4.8); LYMPHOCYTES % (AUTO) 15.3 % (21-51); MEAN CORPUSCULAR HEMOGLOBIN 27.2 PG (27.0-31.0); MEAN CORPUSCULAR HGB CONC 33.4 g/dL (33.0-36.5); MEAN CORPUSCULAR VOLUME 81.4 FL (78-98); MEAN PLATELET VOLUME 8.4 FL (7.4-10.4); MONOCYTES # (AUTO) 0.7 X10'3 (0-0.9); MONOCYTES % (AUTO) 9.6 % (2-12); NEUTROPHILS # (AUTO) 5.3 X10'3 (1.8-7.7); NEUTROPHILS % (AUTO) 72.2 % (42-75); PLATELET COUNT 176 X10'3 (140-440); RED BLOOD COUNT 3.05 X10'6 (4.70-6.10); RED CELL DISTRIBUTION WIDTH 18.3 % (11.5-14.5); WHITE BLOOD COUNT 7.4 X10'3 (4.5-11.0)
[2018-11-18 03:54] LABS: ALANINE AMINOTRANSFERASE 23 U/L (12-78); ALBUMIN 2.5 G/DL (3.4-5.0); ALBUMIN/GLOBULIN RATIO 0.8 (1.1-1.5); ALKALINE PHOSPHATASE 45 IU/L (46-116); ANION GAP 7 (8-16); ASPARTATE AMINO TRANSFERASE 34 U/L (10-37); BILIRUBIN,TOTAL 0.4 MG/DL (0.1-1.0); BLOOD UREA NITROGEN 26 MG/DL (7-18); BUN/CREATININE RATIO 14.8 (5.4-32.0); CALCIUM 7.6 MG/DL (8.5-10.1); CHLORIDE 106 MMOL/L (99-107); CREATININE 1.76 MG/DL (0.60-1.10); GLUCOSE 132 MG/DL (70-104); MAGNESIUM 2.4 MG/DL (1.5-2.4); PHOSPHORUS 2.2 MG/DL (2.3-4.5); POTASSIUM 3.8 MMOL/L (3.5-5.1); PREALBUMIN 11.3 MG/DL (19-36); SODIUM 139 MMOL/L (135-145); TOTAL CARBON DIOXIDE 25.8 MMOL/L (24-32); TOTAL PROTEIN 5.7 G/DL (6.4-8.2); TRIGLYCERIDES 138 MG/DL (20-135); eGFR 40 ML/MIN
[2018-11-18] MEDS ORDERED: HYDROmorphone 1 mg/ml syringe ONE (04:31)
[2018-11-18] MEDS: HYDROmorphone 1 mg/ml syringe IV PRN ×4 (04:39→20:41)
--- NOTE | 2018-11-18 06:04 | NUR ---
[id number]: Patient c/o pain off and on tonight. Patient with mild to moderate relief with IV dilaudid as ordered. Patient with improved breathing and cough after medication treatment. abdominal dressing remained clean, dry and intact. G-Tube had 600 ml of dark green sediment drainage from abdomen. Patient encouraged to rest and sleep. patient states " I cant sleep when I am in the hospital." Patient did appear to doze off occasionally throughout the night.
--- NOTE | 2018-11-18 06:15 | NUR ---
Patient in room [facility] 346. I have received report from STITCH RUBBER and had the opportunity to ask questions and assume patient care.
--- NOTE | 2018-11-18 06:26 | NUR ---
Problems reprioritized. Patient report given, questions answered & plan of care reviewed with CHARMAINE Garcia.
[2018-11-18] MEDS: budesonide 0.5mg/2ml UD nebule IH SCH ×2 (07:58→20:12)
[2018-11-18] MEDS: K and/or MAG REPLACEMENT MC SCH (08:00)
[2018-11-18] MEDS: K, MAG and/or Phos replacement - Verify level? MC SCH (08:00)
[2018-11-18] MEDS: duloxetine 30mg CAPSULE.DR PO SCH (08:00)
[2018-11-18] MEDS: enoxaparin 40mg/0.4ml syringe SQ SCH (08:05)
[2018-11-18] MEDS: nicotine 21mg patch - 24 hr TD SCH (08:05)
[2018-11-18] MEDS: propofol 1000mg/100ml bottle 100 ML IV SCH (08:09)
[2018-11-18] MEDS: mag hydrox/Alum hydrox/simeth 30ml oral suspension PO PRN (12:51)
[2018-11-18] MEDS ORDERED: salt irrigation nasal spray 45 ML SPRAY NS PRN (13:55)
[2018-11-18] MEDS: LORazepam 2 mg/ml vial IV PRN ×2 (15:12→20:41)
--- NOTE | 2018-11-18 17:00 | NUR ---
Transferred to surg on tele via bed.
--- NOTE | 2018-11-18 17:31 | NUR ---
Received report from CHARMAINE Saucedo in CICU and received patient to room 346B. VSS. Patient states no further needs at this time. will continue to monitor.
--- NOTE | 2018-11-18 18:15 | NUR ---
Problems reprioritized. Patient report given, questions answered & plan of care reviewed with Gisel Heredia RN.
--- NOTE | 2018-11-18 18:50 | NUR ---
Patient in room [facility] 346. I have received report from CHARMAINE GO and had the opportunity to ask questions and assume patient care. Addendum: 11/18/18 at 1855 by Josette Harris RN Amended: Links added.
[2018-11-18] MEDS: fat emulsion IV bag 180 ML IV SCH (20:41)
[2018-11-18] MEDS: insulin glargine (Lantus) pen - multi-dose SQ SCH (21:00)
[2018-11-19] VITALS: BP 154/71
[2018-11-19] MEDS: mineral oil/petrolatum ophthal oint EACHEYE SCH ×3 (01:52→14:00)
[2018-11-19] MEDS: HYDROmorphone 1 mg/ml syringe IV PRN ×5 (02:00→19:15)
[2018-11-19] MEDS: MVI, adult No.4 with vit. K 10 ML in dextrose 5% water 500ml 490 ML IV SCH ×2 (03:34)
[2018-11-19 04:56] LABS: BASOPHILS % (AUTO) 0.3 % (0-1); EOSINOPHILS # (AUTO) 0.4 X10'3 (0-0.9); EOSINOPHILS % (AUTO) 5.6 % (0-6); HEMATOCRIT 25.2 % (42.0-52.0); HEMOGLOBIN 8.3 g/dl (14.0-17.9); LYMPHOCYTES # (AUTO) 0.9 X10'3 (1.1-4.8); LYMPHOCYTES % (AUTO) 11.8 % (21-51); MEAN CORPUSCULAR HGB CONC 32.9 g/dL (33.0-36.5); MEAN CORPUSCULAR VOLUME 81.9 FL (78-98); MEAN PLATELET VOLUME 8.8 FL (7.4-10.4); MONOCYTES # (AUTO) 0.6 X10'3 (0-0.9); MONOCYTES % (AUTO) 7.3 % (2-12); NEUTROPHILS # (AUTO) 5.8 X10'3 (1.8-7.7); PLATELET COUNT 199 X10'3 (140-440); RED BLOOD COUNT 3.07 X10'6 (4.70-6.10); RED CELL DISTRIBUTION WIDTH 17.7 % (11.5-14.5); WHITE BLOOD COUNT 7.7 X10'3 (4.5-11.0)
[2018-11-19] MEDS: Trace element-5 inj. 1 ML in AA 5 %/CALCIUM/LYTES/DEXT 20% 2,000 ML IV SCH ×2 (04:58→10:58)
[2018-11-19 05:10] LABS: ALANINE AMINOTRANSFERASE 23 U/L (12-78); ALBUMIN 2.4 G/DL (3.4-5.0); ALBUMIN/GLOBULIN RATIO 0.7 (1.1-1.5); ALKALINE PHOSPHATASE 52 IU/L (46-116); ANION GAP 8 (8-16); ASPARTATE AMINO TRANSFERASE 20 U/L (10-37); BILIRUBIN,TOTAL 0.5 MG/DL (0.1-1.0); BLOOD UREA NITROGEN 17 MG/DL (7-18); BUN/CREATININE RATIO 11.9 (5.4-32.0); CALCIUM 7.7 MG/DL (8.5-10.1); CHLORIDE 105 MMOL/L (99-107); CREATININE 1.43 MG/DL (0.60-1.10); GLUCOSE 167 MG/DL (70-104); PHOSPHORUS 2.5 MG/DL (2.3-4.5); POTASSIUM 3.6 MMOL/L (3.5-5.1); PREALBUMIN 10.6 MG/DL (19-36); SODIUM 139 MMOL/L (135-145); TOTAL CARBON DIOXIDE 26.1 MMOL/L (24-32); TOTAL PROTEIN 5.9 G/DL (6.4-8.2); TRIGLYCERIDES 137 MG/DL (20-135); eGFR 50 ML/MIN
--- NOTE | 2018-11-19 06:30 | NUR ---
Problems reprioritized. Patient report given, questions answered & plan of care reviewed with CHARMAINE Coates.
--- NOTE | 2018-11-19 06:39 | NUR ---
Patient in room [facility] 346. I have received report from CYRIL Kiran RN and had the opportunity to ask questions and assume patient care.
[2018-11-19 07:00] VITALS: BP 146/81
[2018-11-19] MEDS: enoxaparin 40mg/0.4ml syringe SQ SCH (07:38)
[2018-11-19] MEDS: duloxetine 30mg CAPSULE.DR PO SCH (07:38)
[2018-11-19] MEDS: nicotine 21mg patch - 24 hr TD SCH (08:00)
--- NOTE | 2018-11-19 08:09 | NUR ---
CAME IN TO BRING MORNING MEDS. CHECKED DRAINS, DRESSING HIP AND ABD, AND FLUIDS. SCD'S WERE NOT ON PT AND NOT PUGGED IN. PUT SCD'S ON PT. GEOVANNA ZIMMER ROUNDED, SHE STATES PT IS DOING WELL FROM ORTHO STANDPOINT. WILL REFER TO HOSPITALIST. DC'D EYE DROPS.
--- NOTE | 2018-11-19 08:21 | NUR ---
PER GEOVANNA ZIMMER: WBA CHANGE DRESSING PRN IF SOILED. CHARGE NOTIFIED
[2018-11-19] MEDS: budesonide 0.5mg/2ml UD nebule IH SCH ×2 (08:43→20:45)
[2018-11-19] MEDS ORDERED: Trace element-5 inj. 1 ML in AA 5 %/CALCIUM/LYTES/DEXT 20% 2,000 ML IV SCH (09:50)
[2018-11-19 09:53] VITALS: BP 146/81
[2018-11-19] MEDS: insulin regular, human vial - multi-dose SQ SCH ×2 (10:12→20:01)
--- NOTE | 2018-11-19 10:43 | NUR ---
F/u: Pt TG slightly elevated past 2 draws; SALVADOR collaborated w/ clinical pharmacist agree to change lipids to 10ml/hr from 15 prior. Will continue to monitor. Addendum: 11/19/18 at [address] Amended: Links added. Addendum: 11/22/18 at [address] Recommend: 1. Continuous 2:1 TPN using Clinimix E 5/20 at 75 ml/hr goal rate will provide total volume 1800 ml. 2. Separate 20% intralipids to run to 12 hours daily at 10 ml/hr to provide total volume of 120 ml, will provide 24 gm lipids 3. Total from above will provide total 1824 cals, 90 g protein, and 4.09 mg/kg/min CHO loading. 4. Prealbumin and TG q Friday and 5. Advance diet as medically indicated to carb controlled 6. Daily weight 7. Opioid antagonist to help with BM with MD approval
[2018-11-19 11:00] VITALS: BP 119/71
--- NOTE | 2018-11-19 13:22 | NUR ---
0700 V/S MISTAKENLY CHARTED AT 0953
--- NOTE | 2018-11-19 15:18 | NUR ---
Reassessment: Pt doing well s/p lysis of adhesions per MD note. Pt TG slightly elevated past 2 draws; RD collaborated w/ clinical pharmacist agree to change lipids to 10ml/hr from 15 prior. Pt still without a BM since 11/15 with no routine bowel care. Pt with Dulcolax suppository PRN last given 11/15. D/w RN opioid antagonist to help with BM with MD approval. Will continue to monitor. TPN: TPN consult received. Patient is s/p exploratory laparotomy, internal hernia repair, and gastrostomy tube placement. Per bedside RN the G-tube is not for feeding, being used for drain? No history of difficulty swallowing. Pt is currently NPO. Per MD note patient's KUB showed possible bowel obstruction and CT revealed high grade SBO. Per surgeon note patient had SBO with peritonitis. TPN recs below. Recommend: 1. Continuous 2:1 TPN using Clinimix E 5/20 at 75 ml/hr goal rate will provide total volume 1800 ml. 2. Separate 20% intralipids to run to 12 hours daily at 10 ml/hr to provide total volume of 180 ml, will provide 24 gm lipids 3. Total from above will provide total 1824 cals, 90 g protein, and 4.09 mg/kg/min CHO loading. 4. Prealbumin and TG q Friday and 5. Advance diet as medically indicated to carb controlled 6. Daily weight 7. Opioid antagonist to help with BM with MD approval Addendum: 11/19/18 at [address] Amended: Links added. Addendum: 11/22/18 at [address] Recommend: 1. Continuous 2:1 TPN using Clinimix E 5/20 at 75 ml/hr goal rate will provide total volume 1800 ml. 2. Separate 20% intralipids to run to 12 hours daily at 10 ml/hr to provide total volume of 120 ml, will provide 24 gm lipids 3. Total from above will provide total 1824 cals, 90 g protein, and 4.09 mg/kg/min CHO loading. 4. Prealbumin and TG q Friday and 5. Advance diet as medically indicated to carb controlled 6. Daily weight 7. Opioid antagonist to help with BM with MD approval
[2018-11-19] MEDS: mag hydrox/Alum hydrox/simeth 30ml oral suspension PO PRN (16:02)
--- NOTE | 2018-11-19 16:04 | NUR ---
LEAKAGE TO THE RIGHT LOWER ABDOMEN UNDER BANDAGE HAS CAUSED BLISTERS. REMOVED DRESSING AND PLACED XEROFORM OVER BLISTERS AND COVERED WITH STERYL 4X4 AND SECURED WITH MEDIPORE TAPE Addendum: 11/19/18 at 1607 by Ioana Mars RN ALSO COVERED INCISION WITH ISLAND DRESSING AND PUT OPTIFOAM AROUND GTUBE SITE
--- NOTE | 2018-11-19 17:52 | NUR ---
PER DR PRICE: D/C F/C 9-13 IN THE AM START SIPS AND CHIPS IF PT IS STILL PASSING GAS IN THE AM
--- NOTE | 2018-11-19 17:59 | NUR ---
Problems reprioritized. Patient report given, questions answered & plan of care reviewed with CYRIL Kiran RN.
[2018-11-19 18:00] VITALS: BP 130/71
--- NOTE | 2018-11-19 18:11 | NUR ---
Patient in room [facility] 346. I have received report from CHARMAINE Coates and had the opportunity to ask questions and assume patient care. Addendum: 11/19/18 at 1812 by Josette Harris RN Amended: Links added.
[2018-11-19] MEDS: fat emulsion IV bag 180 ML IV SCH (20:53)
[2018-11-19] MEDS: insulin glargine (Lantus) pen - multi-dose SQ SCH (22:32)
[2018-11-20] VITALS: BP 133/86
[2018-11-20 00:16] VITALS: BP 141/77
[2018-11-20] MEDS: mag hydrox/Alum hydrox/simeth 30ml oral suspension PO PRN ×3 (00:39→20:43)
[2018-11-20] MEDS: insulin regular, human vial - multi-dose SQ SCH ×4 (02:08→20:13)
[2018-11-20] MEDS: MVI, adult No.4 with vit. K 10 ML in dextrose 5% water 500ml 490 ML IV SCH ×2 (03:07)
[2018-11-20 05:14] LABS: BASOPHILS % (AUTO) 0.5 % (0-1); EOSINOPHILS # (AUTO) 0.6 X10'3 (0-0.9); EOSINOPHILS % (AUTO) 6.8 % (0-6); HEMOGLOBIN 9.3 g/dl (14.0-17.9); LYMPHOCYTES % (AUTO) 11.6 % (21-51); MEAN CORPUSCULAR HEMOGLOBIN 27.1 PG (27.0-31.0); MEAN CORPUSCULAR HGB CONC 33.4 g/dL (33.0-36.5); MEAN CORPUSCULAR VOLUME 81.2 FL (78-98); MEAN PLATELET VOLUME 8.3 FL (7.4-10.4); MONOCYTES # (AUTO) 0.7 X10'3 (0-0.9); MONOCYTES % (AUTO) 8.1 % (2-12); NEUTROPHILS # (AUTO) 6.3 X10'3 (1.8-7.7); PLATELET COUNT 267 X10'3 (140-440); RED BLOOD COUNT 3.44 X10'6 (4.70-6.10); RED CELL DISTRIBUTION WIDTH 17.7 % (11.5-14.5); WHITE BLOOD COUNT 8.6 X10'3 (4.5-11.0)
[2018-11-20 05:42] LABS: ALBUMIN 2.5 G/DL (3.4-5.0); ANION GAP 9 (8-16); BLOOD UREA NITROGEN 23 MG/DL (7-18); BUN/CREATININE RATIO 17.3 (5.4-32.0); CALCIUM 8.3 MG/DL (8.5-10.1); CHLORIDE 104 MMOL/L (99-107); CREATININE 1.33 MG/DL (0.60-1.10); GLUCOSE 193 MG/DL (70-104); POTASSIUM 3.6 MMOL/L (3.5-5.1); SODIUM 138 MMOL/L (135-145); TOTAL CARBON DIOXIDE 25.4 MMOL/L (24-32); eGFR 55 ML/MIN
--- NOTE | 2018-11-20 07:05 | NUR ---
Problems reprioritized. Patient report given, questions answered & plan of care reviewed with CHARMAINE Reyes..
[2018-11-20] MEDS: budesonide 0.5mg/2ml UD nebule IH SCH ×2 (07:26→20:39)
[2018-11-20] MEDS: ipratropium/albuterol 3ml nebule NEB PRN ×2 (07:27→20:40)
[2018-11-20] MEDS: duloxetine 30mg CAPSULE.DR PO SCH (07:51)
[2018-11-20] MEDS: enoxaparin 40mg/0.4ml syringe SQ SCH (07:52)
[2018-11-20] MEDS: nicotine 21mg patch - 24 hr TD SCH (07:52)
[2018-11-20 08:00] VITALS: BP 139/82
--- NOTE | 2018-11-20 08:02 | NUR ---
WHEEZES ANTERIOR LS. PT. RECEIVING BREATHING TX. NO SOB. SA02 STABLE, 0 COUGHING, ABLE TO TAKE SIPS AND CHIPS PER ORDER WITHOUT COUGHING. Addendum: 11/20/18 at 0812 by Heidi Lui RN Amended: Links added.
--- NOTE | 2018-11-20 08:09 | NUR ---
pT. AWAKE ENOUGH TO ANSWER HIS NAME, LOCATION, TIME AND EVENTS. WHEN ASKED ABOUT HIS PAIN HE STATED YES HE WAS IN PAIN AND THAT IT WAS HIS LEFT HIP, TOO DROWSY TO GIVE VERBAL NUMERICAL SCALE PAIN. WILL NOT ADMINISTER PAIN MEDICATION UNTIL PT. IS MORE AWAKE AND ALERT AND WILL REASSESS PAIN AT A LATER TIME. PT. LOOKS TO BE HAVING MILD TO NO PAIN WHILE RESTING WITH HIS EYES CLOSED. Addendum: 11/20/18 at 0812 by Heidi Lui RN Amended: Links added.
[2018-11-20] MEDS: HYDROcodone/acetaminophen 10/325mg tab PO PRN ×2 (10:37→14:52)
[2018-11-20 12:00] VITALS: BP_SYST 121; BP_SYST 124; BP_DIAS 71; BP_DIAS 75
[2018-11-20] MEDS: Trace element-5 inj. 1 ML in AA 5 %/CALCIUM/LYTES/DEXT 20% 2,000 ML IV SCH (13:44)
[2018-11-20] MEDS: metoclopramide 5 mg/ml inj IV SCH ×2 (14:20→20:50)
[2018-11-20 18:00] VITALS: BP 115/65
--- NOTE | 2018-11-20 18:15 | NUR ---
PT. IN ROOM, COMFORTABLE, ALERT AND AWAKE WATCHING TV. RECENTLY AMBULATED WITH REPOSITION. TPN RUNNING PER ORDER. Problems reprioritized. Patient report given, questions answered & plan of care reviewed with JENISE MONTANO.
--- NOTE | 2018-11-20 18:27 | NUR ---
Patient in room [facility]TH[facility] 346. I have received report from CHARMAINE Reyes and had the opportunity to ask questions and assume patient care. Addendum: 11/20/18 at 1827 by Josette Harris RN Amended: Links added.
[2018-11-20] MEDS: insulin glargine (Lantus) pen - multi-dose SQ SCH (20:15)
[2018-11-20] MEDS: fat emulsion IV bag 180 ML IV SCH (20:51)
[2018-11-21] VITALS: BP 128/73
[2018-11-21] MEDS: MVI, adult No.4 with vit. K 10 ML in dextrose 5% water 500ml 490 ML IV SCH ×2 (02:31)
[2018-11-21] MEDS: metoclopramide 5 mg/ml inj IV SCH ×4 (02:31→20:54)
[2018-11-21] MEDS: insulin regular, human vial - multi-dose SQ SCH ×3 (03:36→14:19)
[2018-11-21 06:14] LABS: ALBUMIN 2.6 G/DL (3.4-5.0); ANION GAP 8 (8-16); BLOOD UREA NITROGEN 27 MG/DL (7-18); BUN/CREATININE RATIO 20.9 (5.4-32.0); CALCIUM 9.2 MG/DL (8.5-10.1); CHLORIDE 104 MMOL/L (99-107); CREATININE 1.29 MG/DL (0.60-1.10); GLUCOSE 141 MG/DL (70-104); POTASSIUM 4.1 MMOL/L (3.5-5.1); SODIUM 138 MMOL/L (135-145); eGFR 57 ML/MIN
[2018-11-21 06:18] LABS: BASOPHILS # (AUTO) 0.1 X10'3 (0-0.2); BASOPHILS % (AUTO) 0.6 % (0-1); EOSINOPHILS # (AUTO) 0.7 X10'3 (0-0.9); EOSINOPHILS % (AUTO) 6.9 % (0-6); HEMATOCRIT 28.9 % (42.0-52.0); HEMOGLOBIN 9.5 g/dl (14.0-17.9); LYMPHOCYTES # (AUTO) 1.3 X10'3 (1.1-4.8); LYMPHOCYTES % (AUTO) 13.4 % (21-51); MEAN CORPUSCULAR HEMOGLOBIN 26.9 PG (27.0-31.0); MEAN CORPUSCULAR HGB CONC 32.9 g/dL (33.0-36.5); MEAN CORPUSCULAR VOLUME 81.8 FL (78-98); MEAN PLATELET VOLUME 8.2 FL (7.4-10.4); MONOCYTES % (AUTO) 10.2 % (2-12); NEUTROPHILS # (AUTO) 6.6 X10'3 (1.8-7.7); NEUTROPHILS % (AUTO) 68.9 % (42-75); PLATELET COUNT 284 X10'3 (140-440); RED BLOOD COUNT 3.53 X10'6 (4.70-6.10); RED CELL DISTRIBUTION WIDTH 17.3 % (11.5-14.5); WHITE BLOOD COUNT 9.6 X10'3 (4.5-11.0)
--- NOTE | 2018-11-21 06:45 | NUR ---
Problems reprioritized. Patient report given, questions answered & plan of care reviewed with CHARMAINE Reyes. Pt has been stable and denies any discomfort and no changes in condition Addendum: 11/21/18 at 0646 by Josette Harris RN Amended: Links added.
[2018-11-21 07:00] VITALS: BP 116/77
[2018-11-21] MEDS: nicotine 21mg patch - 24 hr TD SCH (07:16)
[2018-11-21] MEDS: enoxaparin 40mg/0.4ml syringe SQ SCH (07:17)
[2018-11-21] MEDS: duloxetine 30mg CAPSULE.DR PO SCH (07:17)
[2018-11-21] MEDS: HYDROcodone/acetaminophen 10/325mg tab PO PRN (07:17)
[2018-11-21] MEDS: budesonide 0.5mg/2ml UD nebule IH SCH ×2 (09:00→19:41)
[2018-11-21 12:34] VITALS: BP 106/52
[2018-11-21] MEDS: mag hydrox/Alum hydrox/simeth 30ml oral suspension PO PRN ×3 (13:27→21:38)
--- NOTE | 2018-11-21 16:36 | NUR ---
Called pharmacy at 1620 to request a new bag of clinimix. Pharmacy stated that they need to make a new bag and it would take about 20 minutes. After notified that clinimix would take 20 minutes to be made, pt stated that he felt like his blood sugar was low. Accucheck resulted in blood sugar of 32. 50% dextrose in 50mL administered per protocol and D10 hung until Clinimix available to hang.
--- NOTE | 2018-11-21 16:45 | NUR ---
Blood glucose after reassessment 166
[2018-11-21] MEDS: Trace element-5 inj. 1 ML in AA 5 %/CALCIUM/LYTES/DEXT 20% 2,000 ML IV SCH (16:53)
[2018-11-21 18:00] VITALS: BP 111/67
--- NOTE | 2018-11-21 19:26 | NUR ---
PT. IN ROOM, COMFORTABLE, ALERT AND AWAKE WATCHING TV. RECENTLY AMBULATED WITH REPOSITION. TPN RUNNING PER ORDER. Problems reprioritized. Patient report given, questions answered & plan of care reviewed with PRUDENCE RN.
[2018-11-21] MEDS: ipratropium/albuterol 3ml nebule NEB PRN (19:42)
[2018-11-21] MEDS: fat emulsion IV bag 180 ML IV SCH (20:54)
[2018-11-21] MEDS: insulin glargine (Lantus) pen - multi-dose SQ SCH (21:00)
[2018-11-21] MEDS: HYDROmorphone 1 mg/ml syringe IV PRN (21:43)
[2018-11-22] VITALS: BP 122/66
[2018-11-22] MEDS: metoclopramide 5 mg/ml inj IV SCH ×4 (02:00→20:03)
--- NOTE | 2018-11-22 02:52 | NUR ---
Patient refused to have his blood glucose taken. Addendum: 11/22/18 at 0252 by Janae Rendon RN Amended: Links added.
[2018-11-22] MEDS: HYDROmorphone 1 mg/ml syringe IV PRN ×3 (03:02→20:04)
[2018-11-22] MEDS: MVI, adult No.4 with vit. K 10 ML in dextrose 5% water 500ml 490 ML IV SCH ×2 (04:10)
--- NOTE | 2018-11-22 04:27 | NUR ---
Patient refused johana at 0200 Addendum: 11/22/18 at 0428 by Janae Rendon RN Amended: Links added.
--- NOTE | 2018-11-22 04:29 | NUR ---
Patient has been very abusive verbally and his behavior continued to escalate through the shift. Charge nurse notified. He was also non compliant with medication administration and refused to have accuchecks at 0200. I tried to educate the patient but he wont listen. He also became very angry when a recliner was taken out of his room because the patient in room 357B has a visitor and needed a recliner to used. Tried to explain to the patient several times and he does not seem to understand. Will retain the chair as promised around 0600.
[2018-11-22 06:14] LABS: BASOPHILS # (AUTO) 0.1 X10'3 (0-0.2); BASOPHILS % (AUTO) 0.7 % (0-1); EOSINOPHILS # (AUTO) 0.5 X10'3 (0-0.9); EOSINOPHILS % (AUTO) 6.3 % (0-6); HEMATOCRIT 26.1 % (42.0-52.0); HEMOGLOBIN 8.4 g/dl (14.0-17.9); LYMPHOCYTES # (AUTO) 1.2 X10'3 (1.1-4.8); MEAN CORPUSCULAR HEMOGLOBIN 26.6 PG (27.0-31.0); MEAN CORPUSCULAR HGB CONC 32.4 g/dL (33.0-36.5); MEAN PLATELET VOLUME 8.5 FL (7.4-10.4); MONOCYTES # (AUTO) 0.9 X10'3 (0-0.9); MONOCYTES % (AUTO) 10.8 % (2-12); NEUTROPHILS # (AUTO) 5.7 X10'3 (1.8-7.7); NEUTROPHILS % (AUTO) 68.2 % (42-75); PLATELET COUNT 272 X10'3 (140-440); RED BLOOD COUNT 3.18 X10'6 (4.70-6.10); RED CELL DISTRIBUTION WIDTH 17.6 % (11.5-14.5); WHITE BLOOD COUNT 8.4 X10'3 (4.5-11.0)
--- NOTE | 2018-11-22 06:30 | NUR ---
Patient in room [facility] 346. I have received report from Janae MONTANO and had the opportunity to ask questions and assume patient care.
--- NOTE | 2018-11-22 06:43 | NUR ---
Problems reprioritized. Patient report given, questions answered & plan of care reviewed with Krysta MONTANO.
[2018-11-22 07:28] VITALS: BP 120/65
[2018-11-22] MEDS: duloxetine 30mg CAPSULE.DR PO SCH (08:00)
[2018-11-22] MEDS: nicotine 21mg patch - 24 hr TD SCH ×2 (08:00→09:20)
[2018-11-22] MEDS: insulin regular, human vial - multi-dose SQ SCH ×2 (08:51→14:19)
[2018-11-22] MEDS: enoxaparin 40mg/0.4ml syringe SQ SCH (08:52)
[2018-11-22] MEDS: budesonide 0.5mg/2ml UD nebule IH SCH ×2 (09:00→19:53)
[2018-11-22] MEDS: HYDROcodone/acetaminophen 10/325mg tab PO PRN ×2 (11:36→21:30)
[2018-11-22 11:39] LABS: ALBUMIN 2.7 G/DL (3.4-5.0); ANION GAP 6 (8-16); BLOOD UREA NITROGEN 26 MG/DL (7-18); BUN/CREATININE RATIO 24.3 (5.4-32.0); CALCIUM 8.5 MG/DL (8.5-10.1); CHLORIDE 105 MMOL/L (99-107); CREATININE 1.07 MG/DL (0.60-1.10); GLUCOSE 97 MG/DL (70-104); POTASSIUM 4.1 MMOL/L (3.5-5.1); SODIUM 139 MMOL/L (135-145); TOTAL CARBON DIOXIDE 28.5 MMOL/L (24-32); eGFR 70 ML/MIN
[2018-11-22 11:44] VITALS: BP 98/54
--- NOTE | 2018-11-22 14:54 | NUR ---
Reassessment: Pt tolerating TPN at goal; advanced to clear liquids 11/21 PO 0-25% first meals. Pt did have large BM today following constipation post-op. PO 100% meals 5 days prior to NPO/TPN. G-tube clamped per MD note. GLU 32 yesterday received additional IV dex for correction and Lantus now held. Will monitor for diet advancement and ONS needs as PO improves. IF tolerating 50-65% avg meals as diet advances may benefit from wean TPN. Recommend: 1. Continuous 2:1 TPN using Clinimix E 5/20 at 75 ml/hr goal rate will provide total volume 1800 ml. 2. Separate 20% intralipids to run to 12 hours daily at 10 ml/hr to provide total volume of 120 ml, will provide 24 gm lipids 3. Total from above will provide total 1824 cals, 90 g protein, and 4.09 mg/kg/min CHO loading. 4. Prealbumin and TG q Friday and ; daily wts 5. Advance diet as medically indicated to carb controlled 6. routine bowel care; Opioid antagonist to help with BM with MD approval Addendum: 11/22/18 at [address] Amended: Links added.
--- NOTE | 2018-11-22 18:03 | NUR ---
Problems reprioritized. Patient report given, questions answered & plan of care reviewed with Ruth MONTANO.
--- NOTE | 2018-11-22 18:10 | NUR ---
Patient in room [facility] 346. I have received report from Krysta OMNTANO and had the opportunity to ask questions and assume patient care.
[2018-11-22 19:00] VITALS: BP 126/62
[2018-11-22] MEDS ORDERED: fat emulsion IV bag 120 ML IV SCH (20:00)
[2018-11-22] MEDS: mag hydrox/Alum hydrox/simeth 30ml oral suspension PO PRN (20:07)
[2018-11-22] MEDS: insulin glargine (Lantus) pen - multi-dose SQ SCH (21:00)
[2018-11-22] MEDS: LORazepam 2 mg/ml vial IV PRN (21:27)
[2018-11-23 00:01] VITALS: BP 99/62
[2018-11-23] MEDS: metoclopramide 5 mg/ml inj IV SCH ×3 (01:46→13:06)
--- NOTE | 2018-11-23 01:47 | NUR ---
Earlier in the shift after patient had been given ativan and norco and helped in to a recliner, a tabs alarm had been placed on pt. for his safety. This was explained to patient at the time of doing. Unfortunately, while this nurse was at lunch, the tab alarm had been activated. As it had fallen under the recliner it took a minute to retrieve it and patient had become very upset, yelling at staff that it was against the law for this nurse to have done this . Charge nurse had gone in and tried to explain to patient, however, patient refused to listen to explanation. When I went in with scheduled med of reglan, patient yelled at me to get out of the room and that I was fired, and called me a fu----g bi--h.
[2018-11-23] MEDS: HYDROmorphone 1 mg/ml syringe IV PRN ×4 (04:56→23:32)
[2018-11-23 05:23] LABS: ALANINE AMINOTRANSFERASE 86 U/L (12-78); ALBUMIN 2.8 G/DL (3.4-5.0); ALBUMIN/GLOBULIN RATIO 0.8 (1.1-1.5); ALKALINE PHOSPHATASE 96 IU/L (46-116); ANION GAP 5 (8-16); ASPARTATE AMINO TRANSFERASE 66 U/L (10-37); BILIRUBIN,TOTAL 0.2 MG/DL (0.1-1.0); BLOOD UREA NITROGEN 25 MG/DL (7-18); BUN/CREATININE RATIO 20.7 (5.4-32.0); CALCIUM 8.7 MG/DL (8.5-10.1); CHLORIDE 105 MMOL/L (99-107); CREATININE 1.21 MG/DL (0.60-1.10); GLUCOSE 112 MG/DL (70-104); MAGNESIUM 2.5 MG/DL (1.5-2.4); PHOSPHORUS 3.1 MG/DL (2.3-4.5); POTASSIUM 5.3 MMOL/L (3.5-5.1); PREALBUMIN 18.6 MG/DL (19-36); SODIUM 138 MMOL/L (135-145); TOTAL CARBON DIOXIDE 27.7 MMOL/L (24-32); TOTAL PROTEIN 6.5 G/DL (6.4-8.2); TRIGLYCERIDES 144 MG/DL (20-135); eGFR 61 ML/MIN
[2018-11-23 05:31] LABS: BASOPHILS # (AUTO) 0.1 X10'3 (0-0.2); BASOPHILS % (AUTO) 0.9 % (0-1); EOSINOPHILS # (AUTO) 0.9 X10'3 (0-0.9); EOSINOPHILS % (AUTO) 8.7 % (0-6); HEMATOCRIT 27.2 % (42.0-52.0); HEMOGLOBIN 8.9 g/dl (14.0-17.9); LYMPHOCYTES # (AUTO) 2.3 X10'3 (1.1-4.8); LYMPHOCYTES % (AUTO) 23.1 % (21-51); MEAN CORPUSCULAR HEMOGLOBIN 26.9 PG (27.0-31.0); MEAN CORPUSCULAR HGB CONC 32.6 g/dL (33.0-36.5); MEAN CORPUSCULAR VOLUME 82.4 FL (78-98); MEAN PLATELET VOLUME 8.4 FL (7.4-10.4); MONOCYTES % (AUTO) 10.4 % (2-12); NEUTROPHILS # (AUTO) 5.7 X10'3 (1.8-7.7); NEUTROPHILS % (AUTO) 56.9 % (42-75); PLATELET COUNT 301 X10'3 (140-440); RED BLOOD COUNT 3.31 X10'6 (4.70-6.10); RED CELL DISTRIBUTION WIDTH 17.9 % (11.5-14.5)
--- NOTE | 2018-11-23 06:35 | NUR ---
Problems reprioritized. Patient report given, questions answered & plan of care reviewed with Krysta MONTANO.
--- NOTE | 2018-11-23 06:54 | NUR ---
I have received report from Ruth MONTANO and had the opportunity to ask questions and assume patient care.
[2018-11-23] MEDS: duloxetine 30mg CAPSULE.DR PO SCH (07:05)
[2018-11-23] MEDS: HYDROcodone/acetaminophen 10/325mg tab PO PRN (07:05)
[2018-11-23] MEDS: enoxaparin 40mg/0.4ml syringe SQ SCH (07:07)
[2018-11-23 07:11] VITALS: BP 104/46
[2018-11-23] MEDS: budesonide 0.5mg/2ml UD nebule IH SCH ×2 (07:54→20:08)
[2018-11-23] MEDS: ipratropium/albuterol 3ml nebule NEB PRN ×2 (07:54→20:08)
[2018-11-23] MEDS ORDERED: normal saline 1000ml 1,000 ML IV SCH (08:35)
[2018-11-23 11:34] VITALS: BP 112/57
--- NOTE | 2018-11-23 12:00 | NUR ---
Patient BS 206, patient states that he just had [place] 15 minutes ago. Will not use this result to meet for Insulin Protocol.
--- NOTE | 2018-11-23 12:59 | NUR ---
Removed EJ per order by Dr. Pantoja.
[2018-11-23] MEDS ORDERED: MESSAGE TO PHARMACY PO ONE (13:25)
[2018-11-23] MEDS ORDERED: glucagon, human recombinant 1mg kit SUBCUT PRN (13:25)
[2018-11-23] MEDS ORDERED: dextrose ORAL solution 15 GM/59 ML bottle PO PRN ×2 (13:25)
[2018-11-23] MEDS ORDERED: insulin Lispro (HumaLOG) vial - multi-dose SQ SCH (13:25)
[2018-11-23] MEDS ORDERED: dextrose 50%-water 50ml dispensing syringe IV PRN ×2 (13:25)
--- NOTE | 2018-11-23 17:59 | NUR ---
Problems reprioritized. Patient report given, questions answered & plan of care reviewed with Ruth MONTANO.
[2018-11-23 18:00] VITALS: BP 107/53
--- NOTE | 2018-11-23 18:36 | NUR ---
Patient in room [facility] 346. I have received report from Krysta MONTANO and had the opportunity to ask questions and assume patient care.
[2018-11-23] MEDS: insulin glargine (Lantus) pen - multi-dose SQ SCH (21:00)
[2018-11-23] MEDS ORDERED: Melatonin 3mg tablet PO SCH (21:00)
[2018-11-23 23:47] VITALS: BP 114/59
[2018-11-24] MEDS: mag hydrox/Alum hydrox/simeth 30ml oral suspension PO PRN ×4 (00:13→20:09)
[2018-11-24] MEDS ORDERED: Melatonin 3mg tablet PO SCH (00:35)
[2018-11-24] MEDS: HYDROcodone/acetaminophen 10/325mg tab PO PRN ×3 (02:02→20:11)
--- NOTE | 2018-11-24 03:06 | NUR ---
Entered new order that I received for a different patient on this patients' chart by mistake. I dc'd the 3mg for 9mg. so, I have now put a new order in for the 3mg again and the 9mg is left dc'd.
--- NOTE | 2018-11-24 04:52 | NUR ---
Patient refused to take a shower earlier in shift, stating that he would get cleaned up tomorrow. Addendum: 11/24/18 at 0459 by Ruth Lion RN Amended: Links added.
--- NOTE | 2018-11-24 04:54 | NUR ---
Patient refused to use. Addendum: 11/24/18 at 0459 by Ruth Lion RN Amended: Links added.
[2018-11-24 05:05] LABS: BASOPHILS # (AUTO) 0.1 X10'3 (0-0.2); BASOPHILS % (AUTO) 0.8 % (0-1); EOSINOPHILS # (AUTO) 0.9 X10'3 (0-0.9); EOSINOPHILS % (AUTO) 8.7 % (0-6); HEMATOCRIT 25.8 % (42.0-52.0); HEMOGLOBIN 8.6 g/dl (14.0-17.9); LYMPHOCYTES # (AUTO) 1.9 X10'3 (1.1-4.8); LYMPHOCYTES % (AUTO) 18.5 % (21-51); MEAN CORPUSCULAR HEMOGLOBIN 27.1 PG (27.0-31.0); MEAN CORPUSCULAR HGB CONC 33.2 g/dL (33.0-36.5); MEAN CORPUSCULAR VOLUME 81.8 FL (78-98); MEAN PLATELET VOLUME 8.6 FL (7.4-10.4); MONOCYTES # (AUTO) 0.9 X10'3 (0-0.9); MONOCYTES % (AUTO) 8.5 % (2-12); NEUTROPHILS # (AUTO) 6.7 X10'3 (1.8-7.7); NEUTROPHILS % (AUTO) 63.5 % (42-75); PLATELET COUNT 295 X10'3 (140-440); RED BLOOD COUNT 3.15 X10'6 (4.70-6.10); RED CELL DISTRIBUTION WIDTH 18.1 % (11.5-14.5); WHITE BLOOD COUNT 10.5 X10'3 (4.5-11.0)
[2018-11-24 05:06] LABS: ALBUMIN 2.8 G/DL (3.4-5.0); ANION GAP 9 (8-16); BILIRUBIN,TOTAL 0.2 MG/DL (0.1-1.0); BLOOD UREA NITROGEN 24 MG/DL (7-18); BUN/CREATININE RATIO 16.3 (5.4-32.0); CALCIUM 8.4 MG/DL (8.5-10.1); CHLORIDE 105 MMOL/L (99-107); CREATININE 1.47 MG/DL (0.60-1.10); GLUCOSE 121 MG/DL (70-104); POTASSIUM 4.7 MMOL/L (3.5-5.1); SODIUM 142 MMOL/L (135-145); TOTAL CARBON DIOXIDE 28.5 MMOL/L (24-32); TOTAL PROTEIN 6.4 G/DL (6.4-8.2); eGFR 49 ML/MIN
[2018-11-24 05:07] LABS: ALANINE AMINOTRANSFERASE 59 U/L (12-78); ALBUMIN/GLOBULIN RATIO 0.8 (1.1-1.5); ALKALINE PHOSPHATASE 104 IU/L (46-116); ASPARTATE AMINO TRANSFERASE 27 U/L (10-37)
--- NOTE | 2018-11-24 06:40 | NUR ---
Problems reprioritized. Patient report given, questions answered & plan of care reviewed with Heidi MONTANO.
[2018-11-24 07:20] VITALS: BP 112/67
[2018-11-24] MEDS: nicotine 21mg patch - 24 hr TD SCH (08:13)
[2018-11-24] MEDS: duloxetine 30mg CAPSULE.DR PO SCH (08:13)
[2018-11-24] MEDS: enoxaparin 40mg/0.4ml syringe SQ SCH (08:13)
[2018-11-24] MEDS: budesonide 0.5mg/2ml UD nebule IH SCH ×2 (08:21→22:17)
[2018-11-24] MEDS ORDERED: HYDR-4383 PO (09:57)
[2018-11-24] MEDS ORDERED: DOCU-148 PO (09:57)
--- NOTE | 2018-11-24 10:45 | NUR ---
Discharge orders noted. Pt. complaining that he has no where to go, although he does have some funds for hotel housing. need to collaborate transportation for this pt. Charge and case management aware. Pt. states he is attempting to find a ride at this moment.
--- NOTE | 2018-11-24 10:55 | NUR ---
Paged family services assistant to come speak with patient.
[2018-11-24 12:00] VITALS: BP 109/51
--- NOTE | 2018-11-24 12:01 | NUR ---
Pt. refusing to review discharge paperwork. student services dean has already has spoke to pt. Building Engineer notified.
--- NOTE | 2018-11-24 12:14 | NUR ---
Dr Washington rounded on patient today. Patient was upset due to Hospitalist Dr Forbes was planning on discharging patient. Patients states he has no place to go. Per Dr Washington he does not want patient to go to the mission or to unsafe unstable location such as couch surfing. Per Dr Washington he has put to much work into patient surgery. Please cancel Discharge and have director of career services and case management work on discharge location. Dr Forbes aware and is fine with discharge being canceled.
--- NOTE | 2018-11-24 14:21 | NUR ---
Reassessment: TPN has been d/c and pt advanced to carb controlled diet PO improving 75% avg meals meeting needs. G-tube to be removed as outpatient per MD note. LBM 11/23. Will continue to monitor. Recommend: 1. continue carb controlled diet 2. routine bowel care 3. wt per rx Addendum: 11/24/18 at [address] Amended: Links added.
--- NOTE | 2018-11-24 18:17 | NUR ---
Patient in room [facility] 346. I have received report from Heidi MONTANO and had the opportunity to ask questions and assume patient care. Pt sitting up on the side of the bed with tv on. Has complaints of upset stomach and feels unable to eat his dinner. Pt also states he is afraid of being discharged to the streets with his hip healing and gtube in place. Will address pt concerns and continue to monitor.
--- NOTE | 2018-11-24 18:21 | NUR ---
PT. IN ROOM. REQUESTING MALOX FOR STOMACH. NO OTHER NEEDS AT THIS TIME. AWARE HE IS NOT BEING DISCHARGED AT THIS TIME. GAVE REPORT TO JORDI MONTANO.
[2018-11-24] MEDS: insulin glargine (Lantus) pen - multi-dose SQ SCH (21:00)
[2018-11-24] MEDS: Melatonin 3mg tablet PO SCH (21:16)
[2018-11-25] VITALS: BP 121/59
[2018-11-25 05:27] LABS: ALANINE AMINOTRANSFERASE 41 U/L (12-78); ALBUMIN 2.7 G/DL (3.4-5.0); ALBUMIN/GLOBULIN RATIO 0.8 (1.1-1.5); ALKALINE PHOSPHATASE 115 IU/L (46-116); ANION GAP 9 (8-16); ASPARTATE AMINO TRANSFERASE 17 U/L (10-37); BILIRUBIN,TOTAL 0.3 MG/DL (0.1-1.0); BLOOD UREA NITROGEN 23 MG/DL (7-18); BUN/CREATININE RATIO 17.7 (5.4-32.0); CALCIUM 8.4 MG/DL (8.5-10.1); CHLORIDE 103 MMOL/L (99-107); GLUCOSE 101 MG/DL (70-104); POTASSIUM 4.6 MMOL/L (3.5-5.1); SODIUM 140 MMOL/L (135-145); TOTAL CARBON DIOXIDE 28.5 MMOL/L (24-32); TOTAL PROTEIN 6.3 G/DL (6.4-8.2); eGFR 56 ML/MIN
--- NOTE | 2018-11-25 06:04 | NUR ---
Problems reprioritized. Patient report given, questions answered & plan of care reviewed with Heidi MONTANO.
[2018-11-25] MEDS: duloxetine 30mg CAPSULE.DR PO SCH (07:03)
[2018-11-25] MEDS: ondansetron/PF 4mg/2ml inj IV PRN (07:03)
[2018-11-25] MEDS: enoxaparin 40mg/0.4ml syringe SQ SCH (07:04)
[2018-11-25] MEDS: nicotine 21mg patch - 24 hr TD SCH (07:08)
[2018-11-25] MEDS ORDERED: HYDROmorphone 1 mg/ml syringe IV PRN (07:55)
[2018-11-25 08:00] VITALS: BP 122/54
[2018-11-25] MEDS: docusate sod 100mg capsule PO SCH ×2 (08:35→19:29)
[2018-11-25] MEDS: metoclopramide 5 mg/ml inj IV PRN ×2 (09:45→19:28)
[2018-11-25 11:00] VITALS: BP 116/72
[2018-11-25 18:00] VITALS: BP 109/60
--- NOTE | 2018-11-25 18:33 | NUR ---
Pt. in bed resting, alert and awake, conversing with staff. C/o pain and nausea during report. Oncoming RN aware. Report given to Gisel MONTANO.
--- NOTE | 2018-11-25 18:45 | NUR ---
Patient in room [facility] 346. I have received report from CHARMAINE Reyes and had the opportunity to ask questions and assume patient care. Addendum: 11/25/18 at 1845 by Josette Harris RN Amended: Links added.
[2018-11-25] MEDS: insulin glargine (Lantus) pen - multi-dose SQ SCH (21:00)
[2018-11-25] MEDS: Melatonin 3mg tablet PO SCH (21:48)
[2018-11-25] MEDS: mag hydrox/Alum hydrox/simeth 30ml oral suspension PO PRN (21:48)
[2018-11-26] VITALS: BP 125/70
[2018-11-26] MEDS: HYDROcodone/acetaminophen 5mg/325mg tablet PO PRN ×2 (02:49→20:03)
[2018-11-26 05:50] LABS: ALANINE AMINOTRANSFERASE 25 U/L (12-78); ALBUMIN 2.2 G/DL (3.4-5.0); ALBUMIN/GLOBULIN RATIO 0.6 (1.1-1.5); ALKALINE PHOSPHATASE 71 IU/L (46-116); ANION GAP 7 (8-16); ASPARTATE AMINO TRANSFERASE 17 U/L (10-37); BILIRUBIN,TOTAL 0.3 MG/DL (0.1-1.0); BLOOD UREA NITROGEN 14 MG/DL (7-18); BUN/CREATININE RATIO 11.6 (5.4-32.0); CALCIUM 8.1 MG/DL (8.5-10.1); CHLORIDE 107 MMOL/L (99-107); CREATININE 1.21 MG/DL (0.60-1.10); GLUCOSE 97 MG/DL (70-104); POTASSIUM 3.6 MMOL/L (3.5-5.1); SODIUM 146 MMOL/L (135-145); TOTAL CARBON DIOXIDE 31.8 MMOL/L (24-32); TOTAL PROTEIN 6.1 G/DL (6.4-8.2); eGFR 61 ML/MIN
--- NOTE | 2018-11-26 06:24 | NUR ---
Problems reprioritized. Patient report given, questions answered & plan of care reviewed with CHARMAINE Chris. Addendum: 11/26/18 at 0624 by Josette Harris RN Amended: Links added.
--- NOTE | 2018-11-26 06:42 | NUR ---
Patient in room [facility] 346. I have received report from Gisel Kiran RN and had the opportunity to ask questions and assume patient care.
[2018-11-26 07:37] VITALS: BP 144/67
[2018-11-26] MEDS: duloxetine 30mg CAPSULE.DR PO SCH (07:57)
[2018-11-26] MEDS: docusate sod 100mg capsule PO SCH (07:57)
[2018-11-26] MEDS: nicotine 21mg patch - 24 hr TD SCH (07:58)
[2018-11-26] MEDS: enoxaparin 40mg/0.4ml syringe SQ SCH (07:58)
[2018-11-26] MEDS: budesonide 0.5mg/2ml UD nebule IH SCH ×2 (09:00→20:03)
[2018-11-26 12:03] VITALS: BP 130/67
--- NOTE | 2018-11-26 18:37 | NUR ---
Problems reprioritized. Patient report given, questions answered & plan of care reviewed with CHARMAINE Abdul.
[2018-11-26 19:00] VITALS: BP 120/55
[2018-11-26] MEDS: mag hydrox/Alum hydrox/simeth 30ml oral suspension PO PRN (20:02)
[2018-11-26] MEDS: Melatonin 3mg tablet PO SCH (20:57)
[2018-11-26] MEDS: sennosides/docusate sodium tablet PO SCH (20:58)
[2018-11-26] MEDS: insulin glargine (Lantus) pen - multi-dose SQ SCH (20:59)
[2018-11-27] VITALS: BP 128/63
--- NOTE | 2018-11-27 06:22 | NUR ---
Patient in room [facility] 346. I have received report from CHARMAINE Abdul and had the opportunity to ask questions and assume patient care.
--- NOTE | 2018-11-27 06:27 | NUR ---
Problems reprioritized. Patient report given, questions answered & plan of care reviewed with CHARMAINE Chris.
[2018-11-27 07:25] VITALS: BP 124/67
[2018-11-27] MEDS: budesonide 0.5mg/2ml UD nebule IH SCH ×2 (07:56→20:19)
[2018-11-27] MEDS: duloxetine 30mg CAPSULE.DR PO SCH (08:41)
[2018-11-27] MEDS: nicotine 21mg patch - 24 hr TD SCH (08:42)
[2018-11-27] MEDS: enoxaparin 40mg/0.4ml syringe SQ SCH (08:42)
[2018-11-27 11:00] VITALS: BP 102/54
[2018-11-27] MEDS: HYDROcodone/acetaminophen 5mg/325mg tablet PO PRN (14:34)
--- NOTE | 2018-11-27 18:00 | NUR ---
Patient in room [facility] 346. I have received report from Dot MONTANO and had the opportunity to ask questions and assume patient care.
--- NOTE | 2018-11-27 18:29 | NUR ---
Problems reprioritized. Patient report given, questions answered & plan of care reviewed with CHARMAINE Scott.
[2018-11-27 20:00] VITALS: BP 114/57
[2018-11-27] MEDS: mag hydrox/Alum hydrox/simeth 30ml oral suspension PO PRN (20:53)
[2018-11-27] MEDS: sennosides/docusate sodium tablet PO SCH (20:53)
[2018-11-27] MEDS: Melatonin 3mg tablet PO SCH (20:53)
[2018-11-27] MEDS: insulin glargine (Lantus) pen - multi-dose SQ SCH (20:57)
[2018-11-27] MEDS: HYDROcodone/acetaminophen 10/325mg tab PO PRN (23:28)
[2018-11-28] VITALS: BP 121/53
--- NOTE | 2018-11-28 06:10 | NUR ---
Patient in room [facility] 346. I have received report from CHARMAINE Scott and had the opportunity to ask questions and assume patient care.
[2018-11-28 06:30] VITALS: BP 125/69
--- NOTE | 2018-11-28 06:40 | NUR ---
Problems reprioritized. Patient report given, questions answered & plan of care reviewed with Emily RN.
[2018-11-28] MEDS: budesonide 0.5mg/2ml UD nebule IH SCH ×2 (09:00→21:05)
--- NOTE | 2018-11-28 09:12 | NUR ---
patient refused svn tx Addendum: 11/28/18 at 0912 by Nell Montenegro RT Amended: Links added.
--- NOTE | 2018-11-28 09:13 | NUR ---
patient refused svn tx Addendum: 11/28/18 at 0917 by Nell Montenegro RT Amended: Links added.
[2018-11-28] MEDS: duloxetine 30mg CAPSULE.DR PO SCH (10:27)
[2018-11-28] MEDS: nicotine 21mg patch - 24 hr TD SCH ×2 (10:27→10:30)
[2018-11-28] MEDS: enoxaparin 40mg/0.4ml syringe SQ SCH (10:28)
[2018-11-28 11:00] VITALS: BP 130/73
[2018-11-28] MEDS: mag hydrox/Alum hydrox/simeth 30ml oral suspension PO PRN (14:47)
--- NOTE | 2018-11-28 18:00 | NUR ---
Patient in room [facility] 346. I have received report from Emily MONTANO and had the opportunity to ask questions and assume patient care.
--- NOTE | 2018-11-28 18:05 | NUR ---
Problems reprioritized. Patient report given, questions answered & plan of care reviewed with CHARMAINE Scott.
[2018-11-28 20:00] VITALS: BP 114/62
[2018-11-28] MEDS: sennosides/docusate sodium tablet PO SCH (20:56)
[2018-11-28] MEDS: Melatonin 3mg tablet PO SCH (20:56)
[2018-11-28] MEDS: HYDROcodone/acetaminophen 5mg/325mg tablet PO PRN (20:58)
[2018-11-28] MEDS: insulin glargine (Lantus) pen - multi-dose SQ SCH (21:00)
--- NOTE | 2018-11-28 21:00 | NUR ---
Patient refused blood glucose check.
[2018-11-29] VITALS: BP 128/79
--- NOTE | 2018-11-29 06:10 | NUR ---
Patient in room [facility] 346. I have received report from CHARMAINE Scott and had the opportunity to ask questions and assume patient care.
--- NOTE | 2018-11-29 06:32 | NUR ---
Problems reprioritized. Patient report given, questions answered & plan of care reviewed with Emily RN.
--- NOTE | 2018-11-29 07:03 | NUR ---
Pt refused accucheck
[2018-11-29] MEDS: budesonide 0.5mg/2ml UD nebule IH SCH ×2 (09:00→20:40)
[2018-11-29] MEDS: nicotine 21mg patch - 24 hr TD SCH (09:28)
[2018-11-29] MEDS: duloxetine 30mg CAPSULE.DR PO SCH (09:28)
[2018-11-29] MEDS: enoxaparin 40mg/0.4ml syringe SQ SCH (09:29)
[2018-11-29 11:30] VITALS: BP 143/76
--- NOTE | 2018-11-29 16:30 | NUR ---
Received report from CHARMAINE Diaz. Assumed plan of care. Patient is resting comfortably. Addendum: 11/30/18 at 0200 by Shani FONTENOT /5
--- NOTE | 2018-11-29 18:10 | NUR ---
Problems reprioritized. Patient report given, questions answered & plan of care reviewed with CHARMAINE Grullon.
--- NOTE | 2018-11-29 18:30 | NUR ---
Patient in room [facility] 346. I have received report from MICHAEL and had the opportunity to ask questions and assume patient care. ASSUMED CARE OF PT WITH RN STUDENT FRANCHESCA Bates
[2018-11-29 19:00] VITALS: BP 106/55
--- NOTE | 2018-11-29 19:30 | NUR ---
PT SITTING UP AT BEDSIDE. AGREES TO PHYSICAL ASSESSMENT. PT APPEARS AGITATED. PT STATES THAT "PEOPLE ARE LYING" TO HIM. PT UNABLE TO PROVIDE A SPECIFIC SITUATION OR CIRCUMSTANCE AT THIS TIME.
--- NOTE | 2018-11-29 20:00 | NUR ---
Patient disgruntled with inability to have gone outside stating "multiple people are lying to me. I've been trying to go outside for days." Patient was unable to provide specific information. I offered to take patient outside, but he stated he didn't want to anymore, and that it was too late for his preference.
[2018-11-29] MEDS: sennosides/docusate sodium tablet PO SCH (20:17)
[2018-11-29] MEDS: Melatonin 3mg tablet PO SCH (20:17)
[2018-11-29] MEDS: insulin glargine (Lantus) pen - multi-dose SQ SCH (21:00)
[2018-11-29] MEDS: HYDROcodone/acetaminophen 10/325mg tab PO PRN (23:20)
[2018-11-30] VITALS: BP 107/46
--- NOTE | 2018-11-30 02:54 | NUR ---
Student documentation: I have reviewed and agree with all interventions, assessments performed and documented by FRANCHESCA. Student Medication Administration: For this medication-pass time frame, all medication were reviewed, dispensed, administered and documented per hospital policy by FRANCHESCA.
--- NOTE | 2018-11-30 06:15 | NUR ---
Patient in room [facility] 346. I have received report from CHARMAINE Grullon and had the opportunity to ask questions and assume patient care.
--- NOTE | 2018-11-30 06:43 | NUR ---
Problems reprioritized. Patient report given, questions answered & plan of care reviewed with MICHAEL.
--- NOTE | 2018-11-30 07:00 | NUR ---
Pt refused VS & accucheck
[2018-11-30] MEDS: budesonide 0.5mg/2ml UD nebule IH SCH (08:14)
[2018-11-30] MEDS: duloxetine 30mg CAPSULE.DR PO SCH (09:15)
[2018-11-30] MEDS: enoxaparin 40mg/0.4ml syringe SQ SCH (09:16)
[2018-11-30 11:00] VITALS: BP 121/64
--- NOTE | 2018-11-30 12:05 | NUR ---
DC inst provided to pt. IV DC'd, tip intact. All belongings sent w/pt. PCT ambulated pt front lobby.
== END 2018-11-30 12:06 | disposition home or self-care (01) | DRG 480 ==
LOC: ER 12:32 → ORTHO 4S 18:04 → CMPBEDREQ 19:45 → CICU 2S 11-16 15:38 → SUR 3N 11-18 17:19
PROVIDERS: ADMIT Family Medicine; ATTEND Family Medicine
PROC: 0QH734Z Insertion of Internal Fixation Device into Left Upper Femur, Percutaneous Approach (ICD-10-PCS; principal; 2018-11-12 14:32)
PROC: 0DN80ZZ Release Small Intestine, Open Approach (ICD-10-PCS; 2018-11-16)
PROC: 0BQT0ZZ Repair Diaphragm, Open Approach (ICD-10-PCS; 2018-11-16)
PROC: 0DH63UZ Insertion of Feeding Device into Stomach, Percutaneous Approach (ICD-10-PCS; 2018-11-16)
PROC: 5A1935Z Respiratory Ventilation, Less than 24 Consecutive Hours (ICD-10-PCS; 2018-11-16)
PROC: BW211ZZ Computerized Tomography (CT Scan) of Abdomen and Pelvis using Low Osmolar Contrast (ICD-10-PCS; 2018-11-16)
PROC: 0D9670Z Drainage of Stomach with Drainage Device, Via Natural or Artificial Opening (ICD-10-PCS; 2018-11-16)
PROC: 0BH17EZ Insertion of Endotracheal Airway into Trachea, Via Natural or Artificial Opening (ICD-10-PCS; 2018-11-16)
DX: S72.012A Unspecified intracapsular fracture of left femur, initial encounter for closed fracture (principal); K65.9 Peritonitis, unspecified; J96.00 Acute respiratory failure, unspecified whether with hypoxia or hypercapnia; K44.0 Diaphragmatic hernia with obstruction, without gangrene; J44.1 Chronic obstructive pulmonary disease with (acute) exacerbation; D62 Acute posthemorrhagic anemia; N17.9 Acute kidney failure, unspecified; K56.52 Intestinal adhesions [bands] with complete obstruction; K56.7 Ileus, unspecified; S40.012A Contusion of left shoulder, initial encounter; B18.2 Chronic viral hepatitis C; E11.22 Type 2 diabetes mellitus with diabetic chronic kidney disease; F17.210 Nicotine dependence, cigarettes, uncomplicated; K21.9 Gastro-esophageal reflux disease without esophagitis; N18.3 Chronic kidney disease, stage 3 (moderate); E11.40 Type 2 diabetes mellitus with diabetic neuropathy, unspecified; K44.9 Diaphragmatic hernia without obstruction or gangrene; W10.8XXA Fall (on) (from) other stairs and steps, initial encounter; M19.90 Unspecified osteoarthritis, unspecified site; K59.00 Constipation, unspecified; F32.9 Major depressive disorder, single episode, unspecified; F41.9 Anxiety disorder, unspecified; M54.9 Dorsalgia, unspecified; G89.29 Other chronic pain; J44.9 Chronic obstructive pulmonary disease, unspecified; Y83.8 Other surgical procedures as the cause of abnormal reaction of the patient, or of later complication, without mention of misadventure at the time of the procedure; Y92.89 Other specified places as the place of occurrence of the external cause; Z80.1 Family history of malignant neoplasm of trachea, bronchus and lung; Z82.3 Family history of stroke; Z82.49 Family history of ischemic heart disease and other diseases of the circulatory system; Z83.3 Family history of diabetes mellitus; Z90.49 Acquired absence of other specified parts of digestive tract; Z90.5 Acquired absence of kidney; Z85.528 Personal history of other malignant neoplasm of kidney; Y93.89 Activity, other specified; Y99.8 Other external cause status; Z80.8 Family history of malignant neoplasm of other organs or systems; Z71.6 Tobacco abuse counseling
CPT/HCPCS: 36415; 36600; 71045; 73030; 73502; 74018; 74177; 76000; 80048; 80053; 80069; 80305; 81003; 82330; 82570; 82803; 82948; 83036; 83540; 83550; 83605; 83735; 84100; 84134; 84145; 84156; 84300; 84478; 85018; 85025; 85610; 85730; 86885; 86900; 86901; 87040; 87070; 87081; 87207; 93005; 93975; 94002; 94003; 94640; 94760; 96374; 96375; 97110; 97116; 97162; 97530; 99285; A4215; A4357; A4618; A6222; A6258; A6402; A6449; A7000; B4087; C1713; C1758; G0378; J0610; J0690; J0694; J1170; J1265; J1580; J1650; J1815; J2001; J2060; J2175; J2250; J2370; J2405; J2704; J2765; J3010; J3370; J3480; J3490; J7030; J7060; J7120; J7626; P9045; Q0163; Q9967

== ENCOUNTER 2020-02-02 10:17 | Day surgery (SDC) | payer MEDICARE, OTHER ==
[2020-01-28 11:36] LABS: BASOPHILS # (AUTO) 0.1 X10'3 (0-0.2); BASOPHILS % (AUTO) 0.8 % (0-1); EOSINOPHILS # (AUTO) 0.3 X10'3 (0-0.9); EOSINOPHILS % (AUTO) 2.9 % (0-6); LYMPHOCYTES # (AUTO) 2.4 X10'3 (1.1-4.8); LYMPHOCYTES % (AUTO) 22.2 % (21-51); MEAN CORPUSCULAR HEMOGLOBIN 28.8 PG (27.0-31.0); MEAN CORPUSCULAR HGB CONC 32.8 g/dL (33.0-36.5); MEAN CORPUSCULAR VOLUME 87.9 FL (78-98); MEAN PLATELET VOLUME 8.1 FL (7.4-10.4); MONOCYTES # (AUTO) 0.9 X10'3 (0-0.9); MONOCYTES % (AUTO) 8.1 % (2-12); NEUTROPHILS # (AUTO) 7.1 X10'3 (1.8-7.7); PRE OP HEMATOCRIT 37.9 % (42.0-52.0); PRE OP HEMOGLOBIN 12.4 g/dL (14.0-17.9); PRE OP PLATELET COUNT 333 X10'3 (140-440); RED BLOOD COUNT 4.31 X10'6 (4.70-6.10); RED CELL DISTRIBUTION WIDTH 15.3 % (11.5-14.5)
[2020-01-28 11:47] LABS: PRE OP PROTIME 10.8 SECONDS (9.0-12.0)
[2020-01-28 12:00] LABS: ALBUMIN 3.2 G/DL (3.4-5.0); ALBUMIN/GLOBULIN RATIO 0.7 (1.1-1.5); ALKALINE PHOSPHATASE 85 IU/L (46-116); BLOOD UREA NITROGEN 17 MG/DL (7-18); BUN/CREATININE RATIO 16.2 (5.4-32.0); CALCIUM 8.6 MG/DL (8.5-10.1); CHLORIDE 107 MMOL/L (99-107); CREATININE 1.05 MG/DL (0.60-1.10); PRE OP ALT 25 U/L (30-65); PRE OP ANION GAP 8 (8-16); PRE OP AST 21 U/L (10-37); PRE OP BILIRUB, TOTAL 0.2 MG/DL (0.0-1.0); PRE OP GLUCOSE 127 MG/DL (70-104); PRE OP POTASSIUM 4.1 MMOL/L (3.4-5.1); PRE OP SODIUM 140 MMOL/L (135-145); TOTAL CARBON DIOXIDE 25.5 MMOL/L (24-32); TOTAL PROTEIN 7.6 G/DL (6.4-8.2); eGFR 71 ML/MIN
[2020-02-02] VITALS (12 sets, daily range): BP systolic 93–120; BP diastolic 54–77
[~2020-02-02] VITALS: Ht 167.6 cm; Wt 55.4 kg
[~2020-02-02 10:17] MED LIST changes: -ALBU8.5H8 INH; +AMOX-580 PO; -GLIP5TAB13 PO; -NO HOME MEDS; -OMEP20TA5 PO; -PRED20TA PO; -TAM75C PO; +ceFAZolin 2gm in dextrose, iso 50 ML IV ONE; +famotidine 20mg tablet PO ONE; +ringers solution, lacted 1,000 ML IV SCH
[2020-02-02] MEDS ORDERED: LIDOcaine 1% (10mg/ml) 2ml vial ONE (11:09)
[2020-02-02] MEDS ORDERED: BUPIVAcaine/PF 2.5 mg/ml (0.25%) 30ml vial ONE (14:43)
[2020-02-02] MEDS ORDERED: neostigmine methylsulfate 1 MG/ML 10ml vial ONE (15:04)
[2020-02-02] MEDS ORDERED: sevoflurane 250ml liquid IH ONE (15:04)
[2020-02-02] MEDS ORDERED: dexamethasone sod phosphate 10mg/ml inj ONE (15:04)
[2020-02-02] MEDS ORDERED: LIDOcaine 1%/PF 5ML 10 MG/ML VIAL ONE (15:04)
[2020-02-02] MEDS ORDERED: glycopyrrolate 0.2mg/ml inj ONE (15:04)
[2020-02-02] MEDS ORDERED: rocuronium 10mg/ml inj IV ONE (15:04)
[2020-02-02] MEDS ORDERED: ondansetron/PF 4mg/2ml inj ONE (15:04)
[2020-02-02] MEDS ORDERED: fentaNYL/PF 50MCG/1 ML 2ML syringe ONE (15:13)
[2020-02-02] MEDS ORDERED: midazolam 2 mg/2 ml injection ONE (15:13)
[2020-02-02] MEDS ORDERED: propofol inj 20 ML IV ONE (15:20)
[2020-02-02] MEDS ORDERED: meperidine/PF 25mg/ml syringe IV PRN ×3 (15:30)
[2020-02-02] MEDS ORDERED: ringers solution, lacted 1,000 ML IV SCH (15:30)
[2020-02-02] MEDS ORDERED: morphine 2 MG/ML inj. syringe IV PRN (15:30)
[2020-02-02] MEDS ORDERED: ondansetron/PF 4mg/2ml inj IV PRN (15:30)
[2020-02-02] MEDS ORDERED: proCHLORperazine 10 MG/2 ml inj IV PRN (15:30)
[2020-02-02] MEDS ORDERED: morphine 4 MG/ML inj SYRINge IV PRN (15:30)
[2020-02-02] MEDS ORDERED: sugammadex 200mg/2ml injection IV ONE (15:33)
--- NOTE | 2020-02-02 15:48 | NUR ---
Received from OR via MAX, accompanied by Anesthesiologist DR SCHERER and report given by Anesthesiologist. PT DROWSY, DENIES PAIN, ABDOMEN W/POLY VEGA COVERING INCISION CDI. Addendum: 02/02/20 at 1614 by Humaira Spencer RN Amended: Links added.
[2020-02-02] MEDS ORDERED: HYDROcodone/acetaminophen 10/325mg tab PO ONE (16:40)
--- NOTE | 2020-02-02 17:38 | NUR ---
PT COMFORTABLE, AMBULATES SAFELY, D/C INSTRUCTIONS GIVEN AND GONE OVER W/PT WHO VERBALIZED UNDERSTANDING. PT D/CD TO HOME VIA W/C TO PRIVATE VEHICLE W/O INCIDENT. Addendum: 02/02/20 at 1835 by Humaira Spencer RN Amended: Links added.
== END 2020-02-02 17:38 | disposition home or self-care (01) ==
LOC: PAS 10:17
PROVIDERS: ATTEND Surgery
DX: T81.49XA Infection following a procedure, other surgical site, initial encounter (principal); E11.22 Type 2 diabetes mellitus with diabetic chronic kidney disease; N18.9 Chronic kidney disease, unspecified; J44.9 Chronic obstructive pulmonary disease, unspecified; B19.20 Unspecified viral hepatitis C without hepatic coma; M19.90 Unspecified osteoarthritis, unspecified site; F15.90 Other stimulant use, unspecified, uncomplicated; Z91.09 Other allergy status, other than to drugs and biological substances; Z88.1 Allergy status to other antibiotic agents; F17.210 Nicotine dependence, cigarettes, uncomplicated; Z79.899 Other long term (current) drug therapy; Z79.01 Long term (current) use of anticoagulants; Z79.2 Long term (current) use of antibiotics; Z90.5 Acquired absence of kidney; Z85.528 Personal history of other malignant neoplasm of kidney; Z98.890 Other specified postprocedural states; Z20.828 Contact with and (suspected) exposure to other viral communicable diseases; Y83.8 Other surgical procedures as the cause of abnormal reaction of the patient, or of later complication, without mention of misadventure at the time of the procedure; Y92.89 Other specified places as the place of occurrence of the external cause
CPT/HCPCS: 15850; 36415; 71046; 80053; 82948; 85025; 85610; 85730; 87070; 87075; 87077; 87186; 87635; 93005; C9399; J1100; J2001; J2250; J2405; J2704; J2710; J3010; J3490; A4215; A4618; A6407; A6449; A7000; J7120

== ENCOUNTER 2020-02-08 12:31 | Outpatient (CLI) | payer MEDICARE, MEDICAID ==
[~2020-02-08 12:31] MED LIST changes: -ceFAZolin 2gm in dextrose, iso 50 ML IV ONE; -famotidine 20mg tablet PO ONE; -ringers solution, lacted 1,000 ML IV SCH
[2020-02-08] MEDS ORDERED: LIDOcaine 2% 5ml jelly ONE (13:17)
== END 2020-02-08 23:59 | disposition home or self-care (01) ==
LOC: WOUND CARE 12:31
PROVIDERS: ATTEND Nurse Practitioner
DX: T81.89XA Other complications of procedures, not elsewhere classified, initial encounter (principal); E11.622 Type 2 diabetes mellitus with other skin ulcer; L98.492 Non-pressure chronic ulcer of skin of other sites with fat layer exposed; E11.00 Type 2 diabetes mellitus with hyperosmolarity without nonketotic hyperglycemic-hyperosmolar coma (NKHHC); E11.22 Type 2 diabetes mellitus with diabetic chronic kidney disease; N18.9 Chronic kidney disease, unspecified; M19.90 Unspecified osteoarthritis, unspecified site; J44.9 Chronic obstructive pulmonary disease, unspecified; F17.200 Nicotine dependence, unspecified, uncomplicated; F15.90 Other stimulant use, unspecified, uncomplicated; Z86.19 Personal history of other infectious and parasitic diseases; Z79.2 Long term (current) use of antibiotics; Z79.01 Long term (current) use of anticoagulants; Z98.890 Other specified postprocedural states; Z85.528 Personal history of other malignant neoplasm of kidney; Y83.8 Other surgical procedures as the cause of abnormal reaction of the patient, or of later complication, without mention of misadventure at the time of the procedure; Y92.234 Operating room of hospital as the place of occurrence of the external cause
CPT/HCPCS: 11042

== ENCOUNTER 2020-02-10 08:42 | Outpatient (CLI) | payer MEDICARE, MEDICAID ==
[2020-02-10] MEDS ORDERED: LIDOcaine 2% 5ml jelly ONE (08:57)
== END 2020-02-10 23:59 | disposition home or self-care (01) ==
LOC: WOUND CARE 08:42
PROVIDERS: ATTEND Nurse Practitioner
DX: T81.89XD Other complications of procedures, not elsewhere classified, subsequent encounter (principal); E11.622 Type 2 diabetes mellitus with other skin ulcer; L98.492 Non-pressure chronic ulcer of skin of other sites with fat layer exposed; E11.00 Type 2 diabetes mellitus with hyperosmolarity without nonketotic hyperglycemic-hyperosmolar coma (NKHHC); E11.22 Type 2 diabetes mellitus with diabetic chronic kidney disease; N18.9 Chronic kidney disease, unspecified; M19.90 Unspecified osteoarthritis, unspecified site; J44.9 Chronic obstructive pulmonary disease, unspecified; F17.200 Nicotine dependence, unspecified, uncomplicated; F15.90 Other stimulant use, unspecified, uncomplicated; Z86.19 Personal history of other infectious and parasitic diseases; Z79.2 Long term (current) use of antibiotics; Z79.01 Long term (current) use of anticoagulants; Z98.890 Other specified postprocedural states; Z85.528 Personal history of other malignant neoplasm of kidney; Y83.8 Other surgical procedures as the cause of abnormal reaction of the patient, or of later complication, without mention of misadventure at the time of the procedure
CPT/HCPCS: 11042

== ENCOUNTER 2020-02-14 08:32 | Outpatient (CLI) | payer MEDICARE, MEDICAID ==
[2020-02-14] MEDS ORDERED: LIDOcaine 2% 5ml jelly ONE ×2 (09:03→09:26)
== END 2020-02-14 23:59 | disposition home or self-care (01) ==
LOC: WOUND CARE 08:32
PROVIDERS: ATTEND Nurse Practitioner Family
DX: T81.89XD Other complications of procedures, not elsewhere classified, subsequent encounter (principal); E11.622 Type 2 diabetes mellitus with other skin ulcer; L98.492 Non-pressure chronic ulcer of skin of other sites with fat layer exposed; E11.00 Type 2 diabetes mellitus with hyperosmolarity without nonketotic hyperglycemic-hyperosmolar coma (NKHHC); E11.22 Type 2 diabetes mellitus with diabetic chronic kidney disease; N18.9 Chronic kidney disease, unspecified; M19.90 Unspecified osteoarthritis, unspecified site; J44.9 Chronic obstructive pulmonary disease, unspecified; F17.200 Nicotine dependence, unspecified, uncomplicated; F15.90 Other stimulant use, unspecified, uncomplicated; Z86.19 Personal history of other infectious and parasitic diseases; Z79.2 Long term (current) use of antibiotics; Z79.01 Long term (current) use of anticoagulants; Z98.890 Other specified postprocedural states; Z85.528 Personal history of other malignant neoplasm of kidney; Y83.8 Other surgical procedures as the cause of abnormal reaction of the patient, or of later complication, without mention of misadventure at the time of the procedure
CPT/HCPCS: 97597

== ENCOUNTER 2020-02-17 08:16 | Outpatient (CLI) | payer MEDICARE, MEDICAID ==
[2020-02-17] MEDS ORDERED: LIDOcaine 2% 5ml jelly ONE (08:40)
[2020-03-02] MEDS ORDERED: NO HOME MEDS (10:17)
== END 2020-02-17 23:59 | disposition home or self-care (01) ==
LOC: WOUND CARE 08:16
PROVIDERS: ATTEND Nurse Practitioner Family
DX: T81.89XD Other complications of procedures, not elsewhere classified, subsequent encounter (principal); E11.622 Type 2 diabetes mellitus with other skin ulcer; L98.492 Non-pressure chronic ulcer of skin of other sites with fat layer exposed; S31.609D Unspecified open wound of abdominal wall, unspecified quadrant with penetration into peritoneal cavity, subsequent encounter; E11.00 Type 2 diabetes mellitus with hyperosmolarity without nonketotic hyperglycemic-hyperosmolar coma (NKHHC); E11.22 Type 2 diabetes mellitus with diabetic chronic kidney disease; N18.9 Chronic kidney disease, unspecified; M19.90 Unspecified osteoarthritis, unspecified site; J44.9 Chronic obstructive pulmonary disease, unspecified; F15.90 Other stimulant use, unspecified, uncomplicated; F17.210 Nicotine dependence, cigarettes, uncomplicated; Z86.19 Personal history of other infectious and parasitic diseases; Z79.2 Long term (current) use of antibiotics; Z79.01 Long term (current) use of anticoagulants; Z98.890 Other specified postprocedural states; Z85.828 Personal history of other malignant neoplasm of skin; Z85.528 Personal history of other malignant neoplasm of kidney; Z90.5 Acquired absence of kidney; Z79.899 Other long term (current) drug therapy; X58.XXXD Exposure to other specified factors, subsequent encounter; Y83.8 Other surgical procedures as the cause of abnormal reaction of the patient, or of later complication, without mention of misadventure at the time of the procedure
CPT/HCPCS: 11042; 82948

== ENCOUNTER 2020-02-21 08:34 | Outpatient (CLI) | payer MEDICARE, MEDICAID ==
[2020-02-21] MEDS ORDERED: LIDOcaine 2% 5ml jelly ONE (09:25)
== END 2020-02-21 23:59 | disposition home or self-care (01) ==
LOC: WOUND CARE 08:34
PROVIDERS: ATTEND Nurse Practitioner Family
DX: T81.89XD Other complications of procedures, not elsewhere classified, subsequent encounter (principal); E11.622 Type 2 diabetes mellitus with other skin ulcer; L98.492 Non-pressure chronic ulcer of skin of other sites with fat layer exposed; E11.00 Type 2 diabetes mellitus with hyperosmolarity without nonketotic hyperglycemic-hyperosmolar coma (NKHHC); E11.22 Type 2 diabetes mellitus with diabetic chronic kidney disease; N18.9 Chronic kidney disease, unspecified; M19.90 Unspecified osteoarthritis, unspecified site; J44.9 Chronic obstructive pulmonary disease, unspecified; F15.90 Other stimulant use, unspecified, uncomplicated; F17.210 Nicotine dependence, cigarettes, uncomplicated; Z86.19 Personal history of other infectious and parasitic diseases; Z79.2 Long term (current) use of antibiotics; Z79.01 Long term (current) use of anticoagulants; Z98.890 Other specified postprocedural states; Z85.828 Personal history of other malignant neoplasm of skin; Z85.528 Personal history of other malignant neoplasm of kidney; Z90.5 Acquired absence of kidney; Z79.899 Other long term (current) drug therapy; Y83.8 Other surgical procedures as the cause of abnormal reaction of the patient, or of later complication, without mention of misadventure at the time of the procedure
CPT/HCPCS: 82948; 97597

== ENCOUNTER 2020-02-29 09:55 | Outpatient (CLI) | payer MEDICARE, MEDICAID ==
[2020-03-02] MEDS ORDERED: NO HOME MEDS (10:17)
== END 2020-02-29 23:59 | disposition home or self-care (01) ==
LOC: WOUND CARE 09:55
PROVIDERS: ATTEND Nurse Practitioner
DX: T81.89XD Other complications of procedures, not elsewhere classified, subsequent encounter (principal); E11.622 Type 2 diabetes mellitus with other skin ulcer; L98.492 Non-pressure chronic ulcer of skin of other sites with fat layer exposed; E11.00 Type 2 diabetes mellitus with hyperosmolarity without nonketotic hyperglycemic-hyperosmolar coma (NKHHC); E11.22 Type 2 diabetes mellitus with diabetic chronic kidney disease; N18.9 Chronic kidney disease, unspecified; M19.90 Unspecified osteoarthritis, unspecified site; J44.9 Chronic obstructive pulmonary disease, unspecified; F15.90 Other stimulant use, unspecified, uncomplicated; F17.210 Nicotine dependence, cigarettes, uncomplicated; Z86.19 Personal history of other infectious and parasitic diseases; Z79.2 Long term (current) use of antibiotics; Z79.01 Long term (current) use of anticoagulants; Z98.890 Other specified postprocedural states; Z85.828 Personal history of other malignant neoplasm of skin; Z85.528 Personal history of other malignant neoplasm of kidney; Z90.5 Acquired absence of kidney; Z79.899 Other long term (current) drug therapy; Y83.8 Other surgical procedures as the cause of abnormal reaction of the patient, or of later complication, without mention of misadventure at the time of the procedure
CPT/HCPCS: G0463

== ENCOUNTER → 2020-03-09 | Day surgery (SDC) | payer MEDICARE, MEDICAID ==
[2020-03-02 10:29] LABS: BASOPHILS # (AUTO) 0.1 X10'3 (0-0.2); BASOPHILS % (AUTO) 0.9 % (0-1); EOSINOPHILS # (AUTO) 0.4 X10'3 (0-0.9); EOSINOPHILS % (AUTO) 3.6 % (0-6); LYMPHOCYTES # (AUTO) 2.4 X10'3 (1.1-4.8); LYMPHOCYTES % (AUTO) 22.3 % (21-51); MEAN CORPUSCULAR HEMOGLOBIN 30.6 PG (27.0-31.0); MEAN CORPUSCULAR HGB CONC 34.4 g/dL (33.0-36.5); MEAN PLATELET VOLUME 8.2 FL (7.4-10.4); MONOCYTES # (AUTO) 0.9 X10'3 (0-0.9); MONOCYTES % (AUTO) 8.4 % (2-12); NEUTROPHILS # (AUTO) 6.9 X10'3 (1.8-7.7); NEUTROPHILS % (AUTO) 64.8 % (42-75); PRE OP HEMATOCRIT 41.8 % (42.0-52.0); PRE OP HEMOGLOBIN 14.4 g/dL (14.0-17.9); PRE OP PLATELET COUNT 276 X10'3 (140-440); RED CELL DISTRIBUTION WIDTH 15.6 % (11.5-14.5)
[2020-03-02 10:39] LABS: ALKALINE PHOSPHATASE 93 IU/L (46-116); BLOOD UREA NITROGEN 13 MG/DL (7-18); BUN/CREATININE RATIO 11.7 (5.4-32.0); CHLORIDE 105 MMOL/L (99-107); CREATININE 1.11 MG/DL (0.60-1.10); PRE OP ALT 33 U/L (30-65); PRE OP ANION GAP 9 (8-16); PRE OP AST 22 U/L (10-37); PRE OP BILIRUB, TOTAL 0.2 MG/DL (0.0-1.0); PRE OP GLUCOSE 63 MG/DL (70-104); PRE OP POTASSIUM 4.2 MMOL/L (3.4-5.1); PRE OP SODIUM 138 MMOL/L (135-145); TOTAL CARBON DIOXIDE 24.2 MMOL/L (24-32); TOTAL PROTEIN 7.8 G/DL (6.4-8.2); eGFR 67 ML/MIN
[2020-03-02 10:40] LABS: ALBUMIN 3.7 G/DL (3.4-5.0); ALBUMIN/GLOBULIN RATIO 0.9 (1.1-1.5)
[~2020-03-09] VITALS: Ht 167.6 cm; Wt 55.4 kg
[~2020-03-09] MED LIST changes: -AMOX-580 PO; +MESSAGE TO NURSING PO ONE; +NO HOME MEDS; +ceFAZolin 2gm in dextrose, iso 50 ML IV ONE; +famotidine 20mg tablet PO ONE; +meperidine/PF 25mg/ml syringe IV PRN; +morphine 2 MG/ML inj. syringe IV PRN; +morphine 4 MG/ML inj SYRINge IV PRN; +ondansetron/PF 4mg/2ml inj IV PRN; +proCHLORperazine 10 MG/2 ml inj IV PRN; +ringers solution, lacted 1,000 ML IV SCH
[2020-03-09 09:50] VITALS: BP 115/68
[2020-03-09 11:29] LABS: PRE OP INR 1.1 INR; PRE OP PROTIME 11.2 SECONDS (9.0-12.0)
--- NOTE | 2020-03-09 17:11 | NUR ---
patient has been waiting for his surgery for over 6hours. he left ama and iv d/c without complications. he was cussing and very upset and hungry. dr read notified
== END | disposition home or self-care (01) ==
LOC: PAS 09:42
PROVIDERS: ATTEND Surgery
DX: T85.79XA Infection and inflammatory reaction due to other internal prosthetic devices, implants and grafts, initial encounter (principal); Z53.29 Procedure and treatment not carried out because of patient's decision for other reasons; Z20.828 Contact with and (suspected) exposure to other viral communicable diseases; K44.9 Diaphragmatic hernia without obstruction or gangrene; Z79.899 Other long term (current) drug therapy; Z79.01 Long term (current) use of anticoagulants; Y83.8 Other surgical procedures as the cause of abnormal reaction of the patient, or of later complication, without mention of misadventure at the time of the procedure; Y92.89 Other specified places as the place of occurrence of the external cause
CPT/HCPCS: 36415; 71045; 80053; 82948; 85025; 85610; 85730; 87635; J7120

== ENCOUNTER 2020-03-28 11:40 | Inpatient (IN) | payer MEDICARE, MEDICAID ==
[2020-03-23 12:56] LABS: BASOPHILS # (AUTO) 0.1 X10'3 (0-0.2); BASOPHILS % (AUTO) 0.9 % (0-1); EOSINOPHILS # (AUTO) 0.3 X10'3 (0-0.9); EOSINOPHILS % (AUTO) 3.4 % (0-6); HEMATOCRIT 43.4 % (42.0-52.0); HEMOGLOBIN 14.2 g/dl (14.0-17.9); LYMPHOCYTES # (AUTO) 2.6 X10'3 (1.1-4.8); LYMPHOCYTES % (AUTO) 29.9 % (21-51); MEAN CORPUSCULAR HEMOGLOBIN 29.2 PG (27.0-31.0); MEAN CORPUSCULAR HGB CONC 32.8 g/dL (33.0-36.5); MEAN CORPUSCULAR VOLUME 89.2 FL (78-98); MEAN PLATELET VOLUME 8.7 FL (7.4-10.4); MONOCYTES # (AUTO) 0.8 X10'3 (0-0.9); MONOCYTES % (AUTO) 8.7 % (2-12); NEUTROPHILS # (AUTO) 4.9 X10'3 (1.8-7.7); NEUTROPHILS % (AUTO) 57.1 % (42-75); PLATELET COUNT 223 X10'3 (140-440); RED BLOOD COUNT 4.86 X10'6 (4.70-6.10); RED CELL DISTRIBUTION WIDTH 15.8 % (11.5-14.5); WHITE BLOOD COUNT 8.6 X10'3 (4.5-11.0)
[2020-03-23 13:09] LABS: PARTIAL THROMBOPLASTIN TIME 27 SECONDS (22-32)
[2020-03-23 13:14] LABS: ALANINE AMINOTRANSFERASE 31 U/L (12-78); ALBUMIN 3.9 G/DL (3.4-5.0); ALBUMIN/GLOBULIN RATIO 0.9 (1.1-1.5); ALKALINE PHOSPHATASE 96 IU/L (46-116); ANION GAP 8 (8-16); ASPARTATE AMINO TRANSFERASE 25 U/L (10-37); BILIRUBIN,TOTAL 0.5 MG/DL (0.1-1.0); BLOOD UREA NITROGEN 14 MG/DL (7-18); BUN/CREATININE RATIO 12.2 (5.4-32.0); CALCIUM 9.4 MG/DL (8.5-10.1); CHLORIDE 103 MMOL/L (99-107); CREATININE 1.15 MG/DL (0.60-1.10); GLUCOSE 103 MG/DL (70-104); POTASSIUM 4.4 MMOL/L (3.5-5.1); SODIUM 140 MMOL/L (135-145); TOTAL CARBON DIOXIDE 29.5 MMOL/L (24-32); TOTAL PROTEIN 8.3 G/DL (6.4-8.2); eGFR 64 ML/MIN
[2020-03-28] VITALS (9 sets, daily range): BP systolic 118–159; BP diastolic 63–92
[~2020-03-28] VITALS: Ht 167.6 cm; Wt 56.0 kg
[~2020-03-28 11:40] MED LIST changes: -MESSAGE TO NURSING PO ONE; -meperidine/PF 25mg/ml syringe IV PRN; -morphine 2 MG/ML inj. syringe IV PRN; -morphine 4 MG/ML inj SYRINge IV PRN; -ondansetron/PF 4mg/2ml inj IV PRN; -proCHLORperazine 10 MG/2 ml inj IV PRN
[2020-03-28] MEDS ORDERED: BUPIVACAINE liposomal/PF 13.3 MG/ML vial IM ONE (12:42)
[2020-03-28] MEDS ORDERED: BUPIVAcaine/PF 2.5 mg/ml (0.25%) 30ml vial ONE (12:42)
[2020-03-28] MEDS ORDERED: fentaNYL /PF 50mcg/ml 5ml ampule ONE (12:49)
[2020-03-28] MEDS ORDERED: midazolam 2 mg/2 ml injection ONE (12:49)
[2020-03-28] MEDS ORDERED: labetalol 20mg/4ml (5mg/ml) syringe IV PRN (13:00)
[2020-03-28] MEDS ORDERED: hydrALAZINE 20mg/ml inj. IV PRN (13:00)
[2020-03-28] MEDS ORDERED: morphine 4 MG/ML inj SYRINge IV PRN (13:00)
[2020-03-28] MEDS ORDERED: proCHLORperazine 10 MG/2 ml inj IV PRN (13:00)
[2020-03-28] MEDS ORDERED: meperidine/PF 25mg/ml syringe IV PRN ×2 (13:00)
[2020-03-28] MEDS ORDERED: morphine 2 MG/ML inj. syringe IV PRN (13:00)
[2020-03-28] MEDS ORDERED: acetaminophen 1,000mg/100ml IV 100 ML IV PRN (13:00)
[2020-03-28] MEDS ORDERED: ringers solution, lacted 1,000 ML IV SCH (13:00)
[2020-03-28] MEDS ORDERED: ondansetron/PF 4mg/2ml inj IV PRN (13:00)
[2020-03-28] MEDS ORDERED: sevoflurane 250ml liquid IH ONE (13:08)
[2020-03-28] MEDS ORDERED: ondansetron/PF 4mg/2ml inj ONE (13:29)
[2020-03-28] MEDS ORDERED: propofol inj 20 ML IV ONE (13:29)
[2020-03-28] MEDS ORDERED: dexamethasone sod phosphate 4mg/ml inj. ONE (13:29)
[2020-03-28] MEDS ORDERED: rocuronium 10mg/ml inj IV ONE (13:29)
[2020-03-28] MEDS ORDERED: LIDOcaine 2% (20mg/ml) 5ml vial ONE (13:29)
[2020-03-28] MEDS ORDERED: ePHEDrine 50MG/ML INJ. ONE (13:36)
[2020-03-28] MEDS ORDERED: 0.9 % SODIUM CHLORIDE 10 ML VIAL ONE (13:36)
[2020-03-28] MEDS ORDERED: phenylephrine 10mg/ml inj. ONE (13:49)
[2020-03-28] MEDS ORDERED: neostigmine methylsulfate 1 MG/ML 10ml vial ONE (14:05)
[2020-03-28] MEDS ORDERED: glycopyrrolate 0.2mg/ml inj ONE (14:05)
--- NOTE | 2020-03-28 14:15 | NUR ---
Received from OR via BED , accompanied by Anesthesiologist DR MIRANDA and report given by Anesthesiolgist. PATIENT WAKING UP, DENIES PAIN, V/S WNL, NEUROVASCULAR CHECKS INTACT, 20G PIV LUE, SCD ON, ISLAND DRESSING TO ABDOMEN CDI.
[2020-03-28] MEDS: meperidine/PF 25mg/ml syringe IV PRN ×2 (14:22→14:42)
--- NOTE | 2020-03-28 15:35 | NUR ---
PATIENT A&OX4, DENIES PAIN, V/S WNL, NEUROVASCULAR CHECKS INTACT, 20G PIV LUE D/C, SCD OFF, ISLAND DRESSING ABDOMEN CDI.. I HAVE REVIEWED D/C INSTRUCTIONS WITH PATIENT AND FAMILY HAVE VERBALIZED UNDERSTANDING.PATIENT WAS D/C HOME WITH ALL BELONGINGS AND FAMILY GAVE TRANSPORT HOME.
== END 2020-03-28 15:35 | disposition home or self-care (01) | DRG 909 ==
LOC: UNDOADMIN 11:40 → PAS IN 11:40 → EDSTATUS 11:45 → UNDODISIN 15:35
PROVIDERS: ADMIT Surgery; ATTEND Surgery
PROC: 0WPF0JZ Removal of Synthetic Substitute from Abdominal Wall, Open Approach (ICD-10-PCS; principal; 2020-03-28 13:08)
DX: T85.79XA Infection and inflammatory reaction due to other internal prosthetic devices, implants and grafts, initial encounter (principal); Y83.2 Surgical operation with anastomosis, bypass or graft as the cause of abnormal reaction of the patient, or of later complication, without mention of misadventure at the time of the procedure; F32.9 Major depressive disorder, single episode, unspecified; N18.9 Chronic kidney disease, unspecified; K21.9 Gastro-esophageal reflux disease without esophagitis; M19.90 Unspecified osteoarthritis, unspecified site; G89.29 Other chronic pain; F41.9 Anxiety disorder, unspecified; Y92.238 Other place in hospital as the place of occurrence of the external cause; Z20.822 Contact with and (suspected) exposure to COVID-19; Z88.8 Allergy status to other drugs, medicaments and biological substances
CPT/HCPCS: 36415; 80053; 82948; 85025; 85610; 85730; 87635; A4215; A4618; A6407; A6449; A7000; C1758; C9290; J0131; J1100; J2001; J2175; J2250; J2370; J2405; J2704; J2710; J3010; J3490; J7120

== ENCOUNTER 2020-05-01 17:28 | Emergency (ER) | payer MEDICARE, MEDICAID ==
[~2020-05-01] VITALS: Ht 167.6 cm; Wt 56.7 kg
[~2020-05-01 17:28] MED LIST changes: -ceFAZolin 2gm in dextrose, iso 50 ML IV ONE; -famotidine 20mg tablet PO ONE; -ringers solution, lacted 1,000 ML IV SCH
[2020-05-01 17:32] VITALS: BP 129/75
== END 2020-05-01 19:33 | disposition home or self-care (01) ==
LOC: ER 17:29
DX: T14.8XXD Other injury of unspecified body region, subsequent encounter (principal); J44.9 Chronic obstructive pulmonary disease, unspecified; K21.9 Gastro-esophageal reflux disease without esophagitis; E11.9 Type 2 diabetes mellitus without complications; M19.90 Unspecified osteoarthritis, unspecified site; G89.29 Other chronic pain; F41.9 Anxiety disorder, unspecified; F32.9 Major depressive disorder, single episode, unspecified; F15.90 Other stimulant use, unspecified, uncomplicated; Z87.01 Personal history of pneumonia (recurrent); Z86.19 Personal history of other infectious and parasitic diseases; Z87.440 Personal history of urinary (tract) infections; Z90.89 Acquired absence of other organs; Z98.890 Other specified postprocedural states; Z72.89 Other problems related to lifestyle; X58.XXXD Exposure to other specified factors, subsequent encounter
CPT/HCPCS: 99281

== ENCOUNTER → 2020-05-08 | Outpatient (CLI) | payer MEDICARE, MEDICAID ==
[~2020-05-08] MED LIST changes: +LIDOcaine 2% 5ml jelly ONE
== END | disposition home or self-care (01) ==
LOC: WOUND CARE 11:48
PROVIDERS: ATTEND Nurse Practitioner
DX: T81.89XD Other complications of procedures, not elsewhere classified, subsequent encounter (principal); E11.622 Type 2 diabetes mellitus with other skin ulcer; L98.492 Non-pressure chronic ulcer of skin of other sites with fat layer exposed; S31.609D Unspecified open wound of abdominal wall, unspecified quadrant with penetration into peritoneal cavity, subsequent encounter; E11.00 Type 2 diabetes mellitus with hyperosmolarity without nonketotic hyperglycemic-hyperosmolar coma (NKHHC); E11.22 Type 2 diabetes mellitus with diabetic chronic kidney disease; N18.9 Chronic kidney disease, unspecified; M19.90 Unspecified osteoarthritis, unspecified site; J44.9 Chronic obstructive pulmonary disease, unspecified; F15.90 Other stimulant use, unspecified, uncomplicated; F17.210 Nicotine dependence, cigarettes, uncomplicated; Z86.19 Personal history of other infectious and parasitic diseases; Z79.2 Long term (current) use of antibiotics; Z79.01 Long term (current) use of anticoagulants; Z98.890 Other specified postprocedural states; Z85.828 Personal history of other malignant neoplasm of skin; Z85.528 Personal history of other malignant neoplasm of kidney; Z90.5 Acquired absence of kidney; Z79.899 Other long term (current) drug therapy; X58.XXXD Exposure to other specified factors, subsequent encounter; Y83.8 Other surgical procedures as the cause of abnormal reaction of the patient, or of later complication, without mention of misadventure at the time of the procedure
CPT/HCPCS: G0463

== ENCOUNTER 2020-05-20 18:03 | Emergency (ER) | payer MEDICARE, MEDICAID ==
[~2020-05-20] VITALS: Ht 167.6 cm; Wt 61.4 kg
[~2020-05-20 18:03] MED LIST changes: -LIDOcaine 2% 5ml jelly ONE
[2020-05-20] MEDS ORDERED: LIDOcaine/PRILOcaine 5gm cream TP ONE (18:45)
[2020-05-20] MEDS ORDERED: acetaminophen 325mg tablet PO ONE (19:00)
--- NOTE | 2020-05-20 19:12 | NUR ---
Two attempts at IV starts, unsuccessful. Pt very uncooperative, moving in bed. RN Norberto at bedside to attempt another start
[2020-05-20] MEDS ORDERED: ipratropium/albuterol 3ml nebule NEB ONE (19:25)
[2020-05-20] MEDS ORDERED: dexamethasone 4mg tablet PO ONE (19:25)
--- NOTE | 2020-05-20 19:25 | NUR ---
Attempt for IV start by Norberto MONTANO unsuccessful, pt moved arm forcefully. Pt is now yelling and cussing at us, refuses all IV starts or blood draws. Educated pt on need for blood and IV, pt still cussing and yelling. Dr. Fernando notified, ok to hold off on blood/IV for now, will give breathing txmt.
[2020-05-20] MEDS ORDERED: DOXYCYCLINE 100MG CAPSULE PO STA (20:39)
[2020-05-20] MEDS ORDERED: CefTRIAXone 250MG inj IM ONE (20:40)
--- NOTE | 2020-05-20 20:50 | NUR ---
PT AGREEABLE TO ANOTHER ATTEMPT FOR IV/BLOOD DRAW, UNABLE TO GET IV, BUT LABS DRAWN. PT REFUSES ANOTHER IV ATTEMPT. AWARE Addendum: 05/20/20 at 2100 by ALEXEY T AGREEABLE TO ANOTHER ATTEMPT FOR IV/BLOOD DRAW, SARAH MONTANO IN TO ATTEMPT, UNABLE TO GET IV, BUT LABS DRAWN. PT REFUSES ANOTHER IV ATTEMPT. AWARE
[2020-05-20 20:55] LABS: BASOPHILS % (AUTO) 0.2 % (0-1); EOSINOPHILS % (AUTO) 0.1 % (0-6); HEMATOCRIT 39.3 % (42.0-52.0); LYMPHOCYTES # (AUTO) 0.8 X10'3 (1.1-4.8); LYMPHOCYTES % (AUTO) 4.6 % (21-51); MEAN CORPUSCULAR VOLUME 87.8 FL (78-98); MEAN PLATELET VOLUME 8.6 FL (7.4-10.4); MONOCYTES # (AUTO) 0.7 X10'3 (0-0.9); MONOCYTES % (AUTO) 4.4 % (2-12); NEUTROPHILS % (AUTO) 90.7 % (42-75); PLATELET COUNT 221 X10'3 (140-440); RED BLOOD COUNT 4.48 X10'6 (4.70-6.10); RED CELL DISTRIBUTION WIDTH 15.8 % (11.5-14.5); WHITE BLOOD COUNT 16.6 X10'3 (4.5-11.0)
[2020-05-20] MEDS ORDERED: CefTRIAXone 1000mg IM Kit (w/lidocaine diluent) IM ONE (21:00)
[2020-05-20] MEDS ORDERED: temazepam 15mg capsule PO PRN (21:00)
[2020-05-20 21:03] LABS: ALANINE AMINOTRANSFERASE 30 U/L (12-78); ALBUMIN 3.5 G/DL (3.4-5.0); ALBUMIN/GLOBULIN RATIO 0.8 (1.1-1.5); ALKALINE PHOSPHATASE 89 IU/L (46-116); ANION GAP 11 (8-16); ASPARTATE AMINO TRANSFERASE 18 U/L (10-37); BILIRUBIN,TOTAL 0.4 MG/DL (0.1-1.0); BLOOD UREA NITROGEN 18 MG/DL (7-18); CALCIUM 8.9 MG/DL (8.5-10.1); CHLORIDE 99 MMOL/L (99-107); CREATININE 1.29 MG/DL (0.60-1.10); GLUCOSE 255 MG/DL (70-104); POTASSIUM 4.2 MMOL/L (3.5-5.1); SODIUM 136 MMOL/L (135-145); TOTAL CARBON DIOXIDE 26.3 MMOL/L (24-32); TOTAL PROTEIN 8.1 G/DL (6.4-8.2); eGFR 56 ML/MIN
[2020-05-20] MEDS ORDERED: NO HOME MEDS (21:56)
[2020-05-20 22:06] LABS: C-REACTIVE PROTEIN 4.54 MG/DL (0.0-0.5); FERRITIN 43 NG/ML (26-388); LACTATE DEHYDROGENASE 249 U/L (85-227)
--- NOTE | 2020-05-20 22:10 | NUR ---
PER ER DOCTOR, HOSPITALIST IS AWARE PT DOES NOT HAVE IV AND WE WILL DO ORAL/IM MEDS FOR JEANETTE LEO PICC RN IN AM
[2020-05-20 22:27] VITALS: BP 125/76
[2020-05-20 22:38] LABS: CLARITY,URINE CLEAR (Clear); COLOR,URINE YELLOW (Yellow); GLUCOSE, URINE 500 mg/dl (Neg); KETONES,URINE NEGATIVE (Neg); LEUKOCYTE ESTERASE ,URINE TRACE (Neg); NITRITES, URINE NEGATIVE (Neg); OCCULT BLOOD,URINE NEGATIVE (Neg); PROTEIN,URINE NEGATIVE (Neg); UROBILINOGEN,URINE 0.2 E.U/dL (0.2-1.0)
[2020-05-20 22:49] LABS: UA COLLECTION TYPE CLN CATCH MIDSTREAM
[2020-05-20 22:50] LABS: BACTERIA,URINE FEW /HPF (Neg); RBC,URINE NONE SEEN /HPF (0-2); SQUAMOUS EPITHELIAL CELL,UR FEW /LPF (FEW)
[2020-05-20] MEDS ORDERED: sodium chloride 0.45% 1,000 ML IV SCH (23:15)
[2020-05-20] MEDS ORDERED: dextrose ORAL solution 15 GM/59 ML bottle PO PRN ×2 (23:15)
[2020-05-20] MEDS ORDERED: glucagon, human recombinant 1mg kit SUBCUT PRN (23:15)
[2020-05-20] MEDS ORDERED: MESSAGE TO PHARMACY PO ONE (23:15)
[2020-05-20] MEDS ORDERED: insulin Lispro (HumaLOG) vial - multi-dose SQ SCH (23:15)
[2020-05-20] MEDS ORDERED: mag hydrox/Alum hydrox/simeth 30ml oral suspension PO PRN (23:15)
[2020-05-20] MEDS ORDERED: magnesium Cl slow-release 64mg tablet PO PRN (23:15)
[2020-05-20] MEDS ORDERED: acetaminophen 650mg rectal suppository RC PRN (23:15)
[2020-05-20] MEDS ORDERED: diphenhydrAMINE 25mg capsule PO PRN (23:15)
[2020-05-20] MEDS ORDERED: diphenhydrAMINE 50 mg/ml inj IV PRN (23:15)
[2020-05-20] MEDS ORDERED: acetaminophen 325mg tablet PO PRN ×2 (23:15)
[2020-05-20] MEDS ORDERED: potassium Cl 20 mEq SR tablet PO PRN ×2 (23:15)
[2020-05-20] MEDS ORDERED: potassium Cl 40MEQ/1/2NS 520ml 520 ML IV PRN ×2 (23:15)
[2020-05-20] MEDS ORDERED: HYDROcodone/acetaminophen 5mg/325mg tablet PO PRN (23:15)
[2020-05-20] MEDS ORDERED: bisacodyl 10mg suppository rectal RC PRN (23:15)
[2020-05-20] MEDS ORDERED: magnesium hydroxide 30ml (MOM) UD suspension PO PRN (23:15)
[2020-05-20] MEDS ORDERED: magnesium 4gm in 100ml NS 100 ML IV PRN (23:15)
[2020-05-20] MEDS ORDERED: magnesium 2GM in 50ml NS 50 ML IV PRN (23:15)
[2020-05-20] MEDS ORDERED: ondansetron/PF 4mg/2ml inj IV PRN (23:15)
[2020-05-20] MEDS ORDERED: morphine 2 MG/ML inj. syringe IV PRN (23:15)
[2020-05-20] MEDS ORDERED: dextrose 50%-water 50ml dispensing syringe IV PRN ×2 (23:15)
[2020-05-20 23:44] LABS: PHOSPHORUS 2.1 MG/DL (2.3-4.5)
--- NOTE | 2020-05-20 23:44 | NUR ---
dr jacobo notified of inability to get an IV , no new orders and response was do not worry about it.
[2020-05-21] MEDS ORDERED: methylPREDNISolone sod succ 125mg/2ml vial IV SCH
--- NOTE | 2020-05-21 00:18 | NUR ---
DR ROCHE HERE TO EXPLAIN ADMISSION TO PATIENT AGAIN, PATIENT YELLING AT DR ROCHE DEMANDING TO LEAVE SHAKING FISTS AT STAFF. SECURITY REQUESTED TO BEDSIDE. PATIENT DEMANDS TO LEAVE NOW
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
[2020-05-21 00:29] LABS: ETHANOL < 0.010 GM/DL (0.0-0.010)
[2020-05-21] MEDS ORDERED: ipratropium/albuterol 3ml nebule NEB SCH (03:00)
[2020-05-21] MEDS ORDERED: pantoprazole 40mg Tablet.DR PO SCH (07:30)
[2020-05-21] MEDS ORDERED: heparin, porcine 5000 units/ml vial SQ SCH (08:00)
[2020-05-21] MEDS ORDERED: K and/or MAG REPLACEMENT MC SCH (08:00)
[2020-05-21] MEDS ORDERED: CefTRIAXone/D5W-Rocephin 1gm 50 ML IV SCH (08:00)
[2020-05-21] MEDS ORDERED: azithromycin/NS 500mg/250ml 250 ML IV SCH (08:00)
[2020-05-21] MEDS ORDERED: insulin glargine (Lantus) pen - multi-dose SQ SCH (21:00)
== END 2020-05-21 00:22 | disposition home or self-care (01) ==
LOC: ER 18:03 → UNDOADMIN 23:11 → ED HOLD 23:11 → ER 05-21 00:22 → UNDODISIN 05-21 00:22
DX: J44.1 Chronic obstructive pulmonary disease with (acute) exacerbation (principal); Z20.822 Contact with and (suspected) exposure to COVID-19; J18.9 Pneumonia, unspecified organism; R06.03 Acute respiratory distress; K21.9 Gastro-esophageal reflux disease without esophagitis; E11.9 Type 2 diabetes mellitus without complications; M19.90 Unspecified osteoarthritis, unspecified site; G89.29 Other chronic pain; F41.9 Anxiety disorder, unspecified; F15.90 Other stimulant use, unspecified, uncomplicated; F32.9 Major depressive disorder, single episode, unspecified; Z90.49 Acquired absence of other specified parts of digestive tract; Z98.890 Other specified postprocedural states; Z72.89 Other problems related to lifestyle
CPT/HCPCS: 36415; 71045; 80053; 80320; 81001; 82728; 83036; 83605; 83615; 83735; 83880; 84100; 84145; 84443; 85025; 86140; 87040; 87088; 87635; 93005; 94640; 96372; 99285; C9803; J0696; 94760; 96374; G0378; J1815

== ENCOUNTER 2020-12-29 15:13 | Inpatient (IN) | payer MEDICARE, MEDICAID ==
[~2020-12-29] VITALS: Ht 167.6 cm; Wt 59.0 kg
[2020-12-29 15:28] LABS: ABG HCO3 19.5 mmol/L (22.0-26.0); ABG OXYGEN SATURATION 98.6 % (94-97); ABG PCO2 (T) 24.5 mmHg (35.0-48.0); ABG PO2 (T) 128.4 mmHg (75.0-100.0); ALLEN'S TEST POSITIVE; FCOHb 1.2 % (0.0-3.9); FLOW 15 L/min; FMetHb 0.3 % (0.0-1.5); FO2Hb 97.1 % (94-97); PATIENT TEMPERATURE 36.1; TOTAL HEMOGLOBIN 14.1 G/dl (14.0-18.0)
[2020-12-29 16:42] LABS: MEAN CORPUSCULAR HEMOGLOBIN 31.4 PG (27.0-31.0); MONOCYTES # (AUTO) 1.3 X10'3 (0-0.9); NEUTROPHILS % (AUTO) 87.7 % (42-75); PLATELET COUNT 181 X10'3 (140-440)
[2020-12-29 16:43] LABS: BASOPHILS % (AUTO) 0.2 % (0-1); EOSINOPHILS % (AUTO) 0 % (0-6); HEMATOCRIT 41.2 % (42.0-52.0); HEMOGLOBIN 14.1 g/dl (14.0-17.9); LYMPHOCYTES # (AUTO) 1.2 X10'3 (1.1-4.8); LYMPHOCYTES % (AUTO) 5.7 % (21-51); MEAN CORPUSCULAR HGB CONC 34.3 g/dL (33.0-36.5); MEAN CORPUSCULAR VOLUME 91.6 FL (78-98); MEAN PLATELET VOLUME 9.1 FL (7.4-10.4); MONOCYTES % (AUTO) 6.4 % (2-12); NEUTROPHILS # (AUTO) 18.5 X10'3 (1.8-7.7); RED BLOOD COUNT 4.49 X10'6 (4.70-6.10); RED CELL DISTRIBUTION WIDTH 13.8 % (11.5-14.5); WHITE BLOOD COUNT 21.2 X10'3 (4.5-11.0)
[2020-12-29 16:57] LABS: ALANINE AMINOTRANSFERASE 22 U/L (12-78); ALBUMIN 2.6 G/DL (3.4-5.0); ALBUMIN/GLOBULIN RATIO 0.6 (1.1-1.5); ALKALINE PHOSPHATASE 69 IU/L (46-116); ANION GAP 12 (8-16); BILIRUBIN,TOTAL 0.9 MG/DL (0.1-1.0); BLOOD UREA NITROGEN 40 MG/DL (7-18); BUN/CREATININE RATIO 26.1 (5.4-32.0); CALCIUM 8.5 MG/DL (8.5-10.1); CHLORIDE 95 MMOL/L (99-107); CREATININE 1.53 MG/DL (0.60-1.10); GLUCOSE 122 MG/DL (70-104); SODIUM 131 MMOL/L (135-145); TOTAL CARBON DIOXIDE 24.3 MMOL/L (24-32); TOTAL PROTEIN 7.2 G/DL (6.4-8.2); eGFR 46 ML/MIN
[2020-12-29 17:08] LABS: TOTAL CELLS COUNTED 100
[2020-12-29 17:09] LABS: BURR CELLS 1+; PLATELET ESTIMATE NORMAL; TOXIC VACUOLATION 1+
[2020-12-29] MEDS ORDERED: vancomycin/NS 1 GM ADD-VANTAGE 250 ML IV ONE (17:10)
[2020-12-29] MEDS ORDERED: piperacillin/tazo 3.375gm/50ml 50 ML IV ONE (17:10)
[2020-12-29] MEDS ORDERED: normal saline 1000ML IV soln IV ONE (17:10)
[2020-12-29] MEDS ORDERED: dexamethasone sod phosphate 10mg/ml inj IV STA (17:11)
[2020-12-29 17:14] LABS: FERRITIN 281 NG/ML (26-388); MAGNESIUM 2.1 MG/DL (1.5-2.4)
[2020-12-29] MEDS ORDERED: GABA300C PO (17:18)
[2020-12-29 17:19] LABS: ASPARTATE AMINO TRANSFERASE 32 U/L (10-37); LACTATE DEHYDROGENASE 263 U/L (85-227); POTASSIUM 4.9 MMOL/L (3.5-5.1)
[2020-12-29] MEDS ORDERED: potassium Cl 40MEQ/1/2NS 520ml 520 ML IV PRN ×2 (17:30)
[2020-12-29] MEDS ORDERED: magnesium 2GM in 50ml NS 50 ML IV PRN (17:30)
[2020-12-29] MEDS ORDERED: mag hydrox/Alum hydrox/simeth 30ml oral suspension PO PRN (17:30)
[2020-12-29] MEDS ORDERED: ipratropium/albuterol 3ml nebule NEB PRN (17:30)
[2020-12-29] MEDS ORDERED: magnesium 4gm in 100ml NS 100 ML IV PRN (17:30)
[2020-12-29] MEDS ORDERED: ondansetron/PF 4mg/2ml inj IV PRN (17:30)
[2020-12-29] MEDS ORDERED: acetaminophen 325mg tablet PO PRN (17:30)
[2020-12-29] MEDS ORDERED: magnesium Cl slow-release 64mg tablet PO PRN (17:30)
[2020-12-29] MEDS ORDERED: potassium Cl 20 mEq SR tablet PO PRN ×2 (17:30)
[2020-12-29] MEDS: ipratropium/albuterol 3ml nebule NEB PRN (17:45)
[2020-12-29] MEDS: azithromycin/NS 500mg/250ml 250 ML IV SCH (19:29)
[2020-12-29] MEDS: CefTRIAXone/D5W-Rocephin 1gm 50 ML IV SCH (19:29)
[2020-12-29] MEDS: normal saline 1000ml 1,000 ML IV SCH (19:30)
[2020-12-29] MEDS: K and/or MAG REPLACEMENT MC SCH (19:59)
[2020-12-29 23:36] VITALS: BP 111/67
[2020-12-30 02:00] VITALS: BP 122/67
[2020-12-30 06:48] LABS: BASOPHILS % (AUTO) 0.1 % (0-1); EOSINOPHILS % (AUTO) 0 % (0-6); HEMATOCRIT 40.6 % (42.0-52.0); HEMOGLOBIN 13.7 g/dl (14.0-17.9); LYMPHOCYTES # (AUTO) 0.6 X10'3 (1.1-4.8); LYMPHOCYTES % (AUTO) 3.8 % (21-51); MEAN CORPUSCULAR HEMOGLOBIN 31.4 PG (27.0-31.0); MEAN CORPUSCULAR HGB CONC 33.8 g/dL (33.0-36.5); MEAN PLATELET VOLUME 9.6 FL (7.4-10.4); MONOCYTES # (AUTO) 0.6 X10'3 (0-0.9); MONOCYTES % (AUTO) 3.7 % (2-12); NEUTROPHILS # (AUTO) 15.1 X10'3 (1.8-7.7); NEUTROPHILS % (AUTO) 92.4 % (42-75); PLATELET COUNT 175 X10'3 (140-440); RED BLOOD COUNT 4.36 X10'6 (4.70-6.10); RED CELL DISTRIBUTION WIDTH 13.5 % (11.5-14.5); WHITE BLOOD COUNT 16.3 X10'3 (4.5-11.0)
[2020-12-30 07:00] VITALS: BP 94/59
[2020-12-30 07:07] LABS: ALBUMIN 2.3 G/DL (3.4-5.0); ANION GAP 12 (8-16); BLOOD UREA NITROGEN 41 MG/DL (7-18); BUN/CREATININE RATIO 31.8 (5.4-32.0); CALCIUM 8.6 MG/DL (8.5-10.1); CHLORIDE 100 MMOL/L (99-107); CREATININE 1.29 MG/DL (0.60-1.10); GLUCOSE 230 MG/DL (70-104); MAGNESIUM 2.5 MG/DL (1.5-2.4); POTASSIUM 4.2 MMOL/L (3.5-5.1); SODIUM 135 MMOL/L (135-145); TOTAL CARBON DIOXIDE 23.3 MMOL/L (24-32); eGFR 56 ML/MIN
[2020-12-30] MEDS: K and/or MAG REPLACEMENT MC SCH ×2 (08:00→18:46)
[2020-12-30] MEDS: enoxaparin 40mg/0.4ml syringe SUBCUT SCH (10:25)
[2020-12-30] MEDS: CefTRIAXone/D5W-Rocephin 1gm 50 ML IV SCH (10:25)
[2020-12-30] MEDS: normal saline 1000ml 1,000 ML IV SCH ×3 (10:29→23:34)
[2020-12-30 11:00] VITALS: BP 107/68
[2020-12-30] MEDS: azithromycin/NS 500mg/250ml 250 ML IV SCH (11:11)
[2020-12-30 15:00] VITALS: BP 111/67
[2020-12-30 18:00] VITALS: BP 117/60
[2020-12-30] MEDS ORDERED: dextrose 50%-water 50ml dispensing syringe IV PRN ×2 (19:30)
[2020-12-30] MEDS ORDERED: dextrose ORAL solution 15 GM/59 ML bottle PO PRN ×2 (19:30)
[2020-12-30] MEDS ORDERED: glucagon, human recombinant 1mg kit SUBCUT PRN (19:30)
[2020-12-30 19:53] LABS: ABG HCO3 18.5 mmol/L (22.0-26.0); ABG OXYGEN SATURATION 98.8 % (94-97); ABG PCO2 (T) 26.8 mmHg (35.0-48.0); ABG PO2 (T) 159.9 mmHg (75.0-100.0); ALLEN'S TEST POSITIVE; FCOHb 0.3 % (0.0-3.9); FMetHb 0.5 % (0.0-1.5); TOTAL HEMOGLOBIN 12.8 G/dl (14.0-18.0)
[2020-12-30] MEDS: ipratropium/albuterol 3ml nebule NEB PRN ×2 (19:56→23:49)
[2020-12-30] MEDS: LORazepam 2 mg/ml vial IV PRN (20:08)
[2020-12-30] MEDS: lactobacillus rhamnosus 10,000 MMU CELLS/CAPSULE PO SCH (20:08)
[2020-12-30] MEDS: gabapentin 300mg capsule PO SCH (20:08)
[2020-12-30] MEDS: insulin Lispro (HumaLOG) vial - multi-dose SQ SCH (20:56)
[2020-12-30 21:50] LABS: HEMOGLOBIN A1C 6.9 % (4.5-6.2)
[2020-12-30 22:00] VITALS: BP 95/45
[2020-12-31 02:00] VITALS: BP 109/56
[2020-12-31 06:00] VITALS: BP 104/52
--- NOTE | 2020-12-31 06:29 | NUR ---
Problems reprioritized. Patient report given, questions answered & plan of care reviewed with CHARMAINE Do.
[2020-12-31 06:38] LABS: ALBUMIN 2.1 G/DL (3.4-5.0); ANION GAP 6 (8-16); BLOOD UREA NITROGEN 44 MG/DL (7-18); BUN/CREATININE RATIO 37.6 (5.4-32.0); CALCIUM 8.5 MG/DL (8.5-10.1); CHLORIDE 109 MMOL/L (99-107); CREATININE 1.17 MG/DL (0.60-1.10); GLUCOSE 214 MG/DL (70-104); MAGNESIUM 2.4 MG/DL (1.5-2.4); POTASSIUM 4.4 MMOL/L (3.5-5.1); SODIUM 138 MMOL/L (135-145); TOTAL CARBON DIOXIDE 22.9 MMOL/L (24-32); eGFR 63 ML/MIN
[2020-12-31 06:45] LABS: BASOPHILS % (AUTO) 0.1 % (0-1); EOSINOPHILS % (AUTO) 0 % (0-6); HEMATOCRIT 35.3 % (42.0-52.0); HEMOGLOBIN 11.8 g/dl (14.0-17.9); LYMPHOCYTES # (AUTO) 1.1 X10'3 (1.1-4.8); LYMPHOCYTES % (AUTO) 6.4 % (21-51); MEAN CORPUSCULAR HEMOGLOBIN 31.1 PG (27.0-31.0); MEAN CORPUSCULAR HGB CONC 33.5 g/dL (33.0-36.5); MEAN CORPUSCULAR VOLUME 92.7 FL (78-98); MEAN PLATELET VOLUME 10.2 FL (7.4-10.4); MONOCYTES # (AUTO) 0.9 X10'3 (0-0.9); MONOCYTES % (AUTO) 5.7 % (2-12); NEUTROPHILS # (AUTO) 14.5 X10'3 (1.8-7.7); NEUTROPHILS % (AUTO) 87.8 % (42-75); PLATELET COUNT 175 X10'3 (140-440); RED BLOOD COUNT 3.81 X10'6 (4.70-6.10); RED CELL DISTRIBUTION WIDTH 13.9 % (11.5-14.5); WHITE BLOOD COUNT 16.5 X10'3 (4.5-11.0)
[2020-12-31] MEDS: azithromycin/NS 500mg/250ml 250 ML IV SCH (07:44)
[2020-12-31] MEDS: K and/or MAG REPLACEMENT MC SCH ×2 (08:00→20:00)
[2020-12-31] MEDS: gabapentin 300mg capsule PO SCH ×2 (09:41→20:03)
[2020-12-31] MEDS: enoxaparin 40mg/0.4ml syringe SUBCUT SCH (09:42)
[2020-12-31] MEDS: lactobacillus rhamnosus 10,000 MMU CELLS/CAPSULE PO SCH ×2 (09:42→20:03)
[2020-12-31] MEDS: insulin Lispro (HumaLOG) vial - multi-dose SQ SCH ×2 (10:07→14:56)
[2020-12-31] MEDS: normal saline 1000ml 1,000 ML IV SCH ×2 (10:08→20:04)
[2020-12-31] MEDS: CefTRIAXone/D5W-Rocephin 1gm 50 ML IV SCH (10:38)
[2020-12-31] MEDS: diatr meglu/diatrizoate 30ml oral sol.-(3 dose) bottle PO SCH ×3 (10:41→16:34)
[2020-12-31 12:00] VITALS: BP 97/47
[2020-12-31] MEDS ORDERED: diatr meglu/diatrizoate 30ml oral sol.-(3 dose) bottle PO SCH (12:00)
--- NOTE | 2020-12-31 13:26 | NUR ---
Malnutrition consult: Pt admitted w/ increasing SOB, found to have PNA and sepsis per EMR. Pt also noted to be homeless. Unable to obtain wt or PO intake hx as pt did not want to cooperate in interview. Observed pt at bedside w/ possible mild wasting of temporalis and clavicle regions. Current wt not scaled though is consistent w/ previous scaled wt of March this year. Pt w/ 100% intake of first 2 meals on CCHO diet. No edema present. Pt currently lacks minimum criteria for malnutrition. A1C 6.9 Diabetes education not indicated at this time. Will continue to monitor. Recs: 1. Continue CCHO diet as tolerated; monitor need for additional protein 2. Bowel care per rx 3. Scaled wt this admit, subsequent weekly wt Addendum: 12/31/20 at [address] Amended: Links added.
[2020-12-31 15:00] VITALS: BP 97/61
[2020-12-31 18:00] VITALS: BP 107/68
--- NOTE | 2020-12-31 18:30 | NUR ---
Report given to Traveler Rn, patient doing well, sitting up eating dinner at shift change.
[2020-12-31 22:00] VITALS: BP 125/66
[2021-01-01 02:00] VITALS: BP 121/64
[2021-01-01] MEDS: normal saline 1000ml 1,000 ML IV SCH ×2 (05:50→08:16)
[2021-01-01 06:00] VITALS: BP 109/62
[2021-01-01 06:23] LABS: BASOPHILS % (AUTO) 0.3 % (0-1); EOSINOPHILS # (AUTO) 0.1 X10'3 (0-0.9); EOSINOPHILS % (AUTO) 0.9 % (0-6); HEMATOCRIT 34.8 % (42.0-52.0); LYMPHOCYTES # (AUTO) 2.3 X10'3 (1.1-4.8); LYMPHOCYTES % (AUTO) 19.5 % (21-51); MEAN CORPUSCULAR HGB CONC 34.4 g/dL (33.0-36.5); MEAN PLATELET VOLUME 9.5 FL (7.4-10.4); MONOCYTES % (AUTO) 8.2 % (2-12); NEUTROPHILS # (AUTO) 8.3 X10'3 (1.8-7.7); NEUTROPHILS % (AUTO) 71.1 % (42-75); PLATELET COUNT 199 X10'3 (140-440); RED BLOOD COUNT 3.74 X10'6 (4.70-6.10); RED CELL DISTRIBUTION WIDTH 13.8 % (11.5-14.5); WHITE BLOOD COUNT 11.7 X10'3 (4.5-11.0)
[2021-01-01 06:47] LABS: ALBUMIN 2.1 G/DL (3.4-5.0); ANION GAP 9 (8-16); BLOOD UREA NITROGEN 36 MG/DL (7-18); BUN/CREATININE RATIO 28.3 (5.4-32.0); CALCIUM 8.6 MG/DL (8.5-10.1); CHLORIDE 110 MMOL/L (99-107); CREATININE 1.27 MG/DL (0.60-1.10); GLUCOSE 128 MG/DL (70-104); MAGNESIUM 2.1 MG/DL (1.5-2.4); POTASSIUM 4.3 MMOL/L (3.5-5.1); SODIUM 142 MMOL/L (135-145); TOTAL CARBON DIOXIDE 22.6 MMOL/L (24-32); eGFR 57 ML/MIN
[2021-01-01] MEDS: K and/or MAG REPLACEMENT MC SCH ×2 (07:16→18:41)
[2021-01-01] MEDS: azithromycin/NS 500mg/250ml 250 ML IV SCH (08:07)
[2021-01-01] MEDS: CefTRIAXone/D5W-Rocephin 1gm 50 ML IV SCH (08:10)
[2021-01-01] MEDS: gabapentin 300mg capsule PO SCH ×2 (08:11→21:00)
[2021-01-01] MEDS: enoxaparin 40mg/0.4ml syringe SUBCUT SCH (08:11)
[2021-01-01] MEDS: lactobacillus rhamnosus 10,000 MMU CELLS/CAPSULE PO SCH ×2 (08:11→21:56)
[2021-01-01] MEDS: insulin Lispro (HumaLOG) vial - multi-dose SQ SCH (08:12)
[2021-01-01] MEDS: LORazepam 2 mg/ml vial IV PRN (09:34)
[2021-01-01] MEDS ORDERED: LORazepam 2 mg/ml vial IV STA (09:40)
--- NOTE | 2021-01-01 09:51 | NUR ---
Spoke with Dr. Boyd regarding increased patient agitation, Patient is impulsive, agitated and yelling. Dr. Boyd gave an order to repeat repeat ativan and place a social media campaign manager order.
--- NOTE | 2021-01-01 09:51 | NUR ---
Security was called patient complies. Patient is back to tele monitor. Patient BS 196. Medication given to patient as ordered. patient was given sandwich and a milk. patient is now resting in bed. No bedtime insulin given patient does not meet protocol.
[2021-01-01 11:00] VITALS: BP 105/62
[2021-01-01 15:00] VITALS: BP 110/66
--- NOTE | 2021-01-01 15:55 | NUR ---
Problems reprioritized. Patient report given, questions answered & plan of care reviewed with Andrew MONTANO.
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
--- NOTE | 2021-01-01 16:39 | NUR ---
Dr. Boyd gave me a telephone order for stat head CT due to fall with head injury
--- NOTE | 2021-01-01 17:35 | NUR ---
PT REFUSING TO HAVE ACCUCHECK DONE. REQUESTING HIS ICE CREAM.
--- NOTE | 2021-01-01 17:50 | NUR ---
PT'S BED ALARM WAS ARARMING. NURSING STAFF WENT TO CHECK ON PT. NURSING STAFF FOUND PT ON THE BATHROOM FLOOR. BLOOD WAS ON THE FLOOR AND IT WAS DISCOVERED THAT THE PT HAD HIT THEIR FOREHEAD. PT'S VITAL SIGNS WHERE TAKEN AND GAUZE PLACED ON FOREHEAD. NOTIFIED AND ORDERS PLACED FOR HEAD CT. PT A&OX4.
[2021-01-01 18:00] VITALS: BP 123/61
--- NOTE | 2021-01-01 18:29 | NUR ---
Problems reprioritized. Patient report given, questions answered & plan of care reviewed with NILSA MONTANO.
--- NOTE | 2021-01-01 20:15 | NUR ---
PATIENT IS CURSING STAFF" FUCK YOU AND FUCK YOUR MEDICATION. I AM NOT DOING ANYTHING. FUCK YOU. MOTHER FUCKING PIECE OF SHIT". HE IS BANGING ON THE OVERBED TABLE .HE IS ASKING FOR HIS CLOTHES. HE IS CURRENTLY GETTING DRESSED. HE WANTS TO LEAVE AMA BUT REFUSES TO SIGN THE FORM. CHARGE NURSE NILESH GARCIA. MD GARCIA.
--- NOTE | 2021-01-01 20:22 | NUR ---
MELCHOR Pichardo MD MADE AWARE. PATIENT ADVICE ABOUT POSSIBLE COMPLICATIONS INCLUDING IF LEAVING AMA. PATIENT CONTINUES TO CURSE AND CALL ME" BITCH". PATIENT IS CURRENTLY DRESSING SEATING AT THE EDGE OF BED. PATIENT HAS UNSTABLE GAIT. ENCOURAGE PATIENT TO REMAIN BED. PATIENT REFUSE ALL MEDS AND CARE. TEACHING ABOUT THE POSSIBLE COMPLICATIONS OF REFUSING MEDICATION, BS CHECK AND INSULIN. PATIENT REFUSES TO VERBALIZE UNDERSTANDING BUT CONTINUES TO CURSE.
--- NOTE | 2021-01-01 20:49 | NUR ---
MD in room patient to talk to patient as patient previously requested. patient only states that he is trying to get a ride home. He does not want to stay. Patient is currently off the monitor. MD aware that patient is currently off the monitor and refusing care. Encouraged by Zoe FAJARDO to call security in case he becomes violent. Will call security as instructed.
[2021-01-01 22:00] VITALS: BP 132/60
--- NOTE | 2021-01-01 22:09 | NUR ---
Melita Perdomo informed about patient's decision to stay after Security was called.
--- NOTE | 2021-01-01 23:00 | NUR ---
PATIENT CONTINUES TO BE AGITATED. ASKS TO SPEAK TO SECURITY BECAUSE HE WANTS HIS DOOR CLOSED. PATIENT IS HIGH RISK FALL. EXPLAIN TO PATIENT THE REASON HIS BED ALARM IS ACTIVATED. PATIENT REFUSES TO CALL FOR HELP. hE OVERESTIMATES HIS STRENGTH. PATIENT HAS UNSTEADY GAIT. WILL CONTINUE FREQUENT ROUNDING.
--- NOTE | 2021-01-01 23:53 | NUR ---
MD MADE AWARE OF PATIENT NONCOMPLIANCE. PATIENT WANTS TO WALK TO THE BATHROOM EVERY FEW MINUTES. REFUSES TO USE URINAL. NEW ORDER FOR SITTER WAS GIVEN. SITTER IS NOW AT BEDSIDE WITH DOOR OPEN. WILL CONTINUE TO MONITOR PATIENT.
[2021-01-01] MEDS ORDERED: LORazepam 2 mg/ml vial IV PRN (23:55)
[2021-01-02] MEDS ORDERED: LORazepam 2 mg/ml vial IM ONE (01:25)
[2021-01-02] MEDS: normal saline 1000ml 1,000 ML IV SCH ×2 (01:30→09:00)
[2021-01-02 02:00] VITALS: BP 138/53
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
--- NOTE | 2021-01-02 06:30 | NUR ---
Patient in room PCU 3015. I have received report from Haydee MONTANO and had the opportunity to ask questions and assume patient care.
[2021-01-02] MEDS: azithromycin/NS 500mg/250ml 250 ML IV SCH (08:00)
[2021-01-02] MEDS: CefTRIAXone/D5W-Rocephin 1gm 50 ML IV SCH (08:00)
[2021-01-02] MEDS: K and/or MAG REPLACEMENT MC SCH (08:00)
[2021-01-02] MEDS ORDERED: PRED10TA23 PO (08:03)
[2021-01-02] MEDS ORDERED: IPRA3AMP9 NEB (08:03)
[2021-01-02] MEDS: lactobacillus rhamnosus 10,000 MMU CELLS/CAPSULE PO SCH (08:56)
[2021-01-02] MEDS: gabapentin 300mg capsule PO SCH (08:56)
[2021-01-02] MEDS: enoxaparin 40mg/0.4ml syringe SUBCUT SCH (08:56)
[2021-01-02] MEDS: insulin Lispro (HumaLOG) vial - multi-dose SQ SCH (09:00)
--- NOTE | 2021-01-02 10:47 | NUR ---
Met with patient to see if he wanted any resources for substance use and patient declined.
[2021-01-02] MEDS ORDERED: LEVO500T89 PO (10:53)
[2021-01-02] MEDS ORDERED: PANT40SU2 PO (10:57)
== END 2021-01-02 10:57 | disposition home or self-care (01) | DRG 871 ==
LOC: ER 15:14 → ED HOLD 17:36 → EDBEDREQ 20:30 → PCU 3S 21:58
PROVIDERS: ADMIT Internal Medicine; ATTEND Internal Medicine
DX: A41.9 Sepsis, unspecified organism (principal); J18.9 Pneumonia, unspecified organism; J96.00 Acute respiratory failure, unspecified whether with hypoxia or hypercapnia; E44.0 Moderate protein-calorie malnutrition; E87.4 Mixed disorder of acid-base balance; J44.0 Chronic obstructive pulmonary disease with (acute) lower respiratory infection; N17.9 Acute kidney failure, unspecified; N18.9 Chronic kidney disease, unspecified; F15.10 Other stimulant abuse, uncomplicated; F32.A Depression, unspecified; F41.9 Anxiety disorder, unspecified; G89.29 Other chronic pain; K21.9 Gastro-esophageal reflux disease without esophagitis; M19.90 Unspecified osteoarthritis, unspecified site; M54.9 Dorsalgia, unspecified; B18.2 Chronic viral hepatitis C; E11.22 Type 2 diabetes mellitus with diabetic chronic kidney disease; Z20.822 Contact with and (suspected) exposure to COVID-19; Z59.00 Homelessness unspecified; Z90.49 Acquired absence of other specified parts of digestive tract; Z68.21 Body mass index [BMI] 21.0-21.9, adult; Z88.8 Allergy status to other drugs, medicaments and biological substances; Z87.440 Personal history of urinary (tract) infections; Z82.3 Family history of stroke; Z80.1 Family history of malignant neoplasm of trachea, bronchus and lung; Z84.89 Family history of other specified conditions
CPT/HCPCS: 36415; 36600; 70450; 71045; 74176; 80048; 80053; 82728; 82803; 82948; 83036; 83605; 83615; 83735; 83880; 84145; 84484; 85007; 85018; 85025; 85384; 86140; 87040; 87070; 87077; 87081; 87186; 87635; 93005; 94640; 94760; 97116; 97161; 97530; 99291; C9803; G0378; J0456; J0696; J1100; J1650; J1815; J2060; J2405; J2543; J3370; J7030; Q9963

== ENCOUNTER 2022-08-01 15:01 | Emergency (ER) | payer MEDICARE, MEDICAID ==
[~2022-08-01] VITALS: Ht 167.6 cm; Wt 63.6 kg
[~2022-08-01 15:01] MED LIST changes: +GABA300C PO; +IPRA3AMP9 NEB; -NO HOME MEDS; +PANT40SU2 PO
[2022-08-01 15:21] VITALS: BP 126/77
== END 2022-08-01 18:45 | disposition left against medical advice (07) ==
LOC: ER 15:02
DX: K46.9 Unspecified abdominal hernia without obstruction or gangrene (principal); Z53.21 Procedure and treatment not carried out due to patient leaving prior to being seen by health care provider
CPT/HCPCS: 99281

== ENCOUNTER 2023-06-05 16:13 | Emergency (ER) | payer MEDICARE, MEDICAID ==
[~2023-06-05] VITALS: Ht 167.6 cm; Wt 60.0 kg
[~2023-06-05 16:13] MED LIST changes: +ALBU2.5V7 NEB; +ALBU8HFA INH; +ASPI81TA52 PO; +DOXY-356 PO; -GABA300C PO; -IPRA3AMP9 NEB; +IPRA4AER IH; +NICO-631 TD; -PANT40SU2 PO; +PRED20TA PO
[2023-06-05 16:31] VITALS: TEMP 97.9
[2023-06-05 17:08] LABS: BASOPHILS % (AUTO) 0.4 % (0-1); EOSINOPHILS # (AUTO) 0.1 X10'3 (0-0.9); EOSINOPHILS % (AUTO) 0.7 % (0-6); HEMATOCRIT 42.1 % (42.0-52.0); HEMOGLOBIN 14.2 g/dl (14.0-17.9); LYMPHOCYTES # (AUTO) 1.2 X10'3 (1.1-4.8); LYMPHOCYTES % (AUTO) 11.4 % (21-51); MEAN CORPUSCULAR HGB CONC 33.8 g/dL (33.0-36.5); MEAN CORPUSCULAR VOLUME 94.7 FL (78-98); MEAN PLATELET VOLUME 8.6 FL (7.4-10.4); MONOCYTES # (AUTO) 0.8 X10'3 (0-0.9); MONOCYTES % (AUTO) 7.9 % (2-12); NEUTROPHILS # (AUTO) 8.1 X10'3 (1.8-7.7); NEUTROPHILS % (AUTO) 79.6 % (42-75); PLATELET COUNT 202 X10'3 (140-440); RED BLOOD COUNT 4.45 X10'6 (4.70-6.10); RED CELL DISTRIBUTION WIDTH 13.8 % (11.5-14.5); WHITE BLOOD COUNT 10.1 X10'3 (4.5-11.0)
[2023-06-05 17:19] LABS: D-DIMER 0.42 MG/L FEU (0-0.50)
[2023-06-05 17:25] LABS: GLUCOSE 281 MG/DL (70-104); POTASSIUM 4.3 MMOL/L (3.5-5.1); SODIUM 138 MMOL/L (135-145)
[2023-06-05 17:26] LABS: ALBUMIN 2.9 G/DL (3.4-5.0); ANION GAP 7 (8-16); BLOOD UREA NITROGEN 31 MG/DL (7-18); BUN/CREATININE RATIO 27.9 (10.0-20.0); CALCIUM 8.2 MG/DL (8.5-10.1); CHLORIDE 103 MMOL/L (99-107); CREATININE 1.11 MG/DL (0.60-1.10); PRO BRAIN NATRIURETIC PEPTIDE 315 PG/ML (0-125); TOTAL CARBON DIOXIDE 27.7 MMOL/L (24-32); eCRCL 56 ML/MIN; eGFR 66 ML/MIN
[2023-06-05] MEDS: CefTRIAXone 2gm/D5W 50ml BAG 50 ML IV ONE (17:26)
[2023-06-05] MEDS: azithromycin/NS 500mg/250ml 250 ML IV ONE (17:27)
[2023-06-05] MEDS: normal saline 1000ml 1,000 ML IV ONE ×2 (17:27→18:51)
[2023-06-05] MEDS: methylPREDNISolone sod succ 125mg/2ml vial IV ONE (17:27)
[2023-06-05] MEDS: ipratropium/albuterol 3ml nebule NEB ONE (17:48)
[2023-06-05 17:49] VITALS: PULSE 74; RESP 15; O2SAT 98
[2023-06-05 17:58] VITALS: PULSE 63; RESP 15; O2SAT 98
[2023-06-05] MEDS: insulin Lispro (HumaLOG) vial - multi-dose SQ ONE (18:53)
[2023-06-05] MEDS ORDERED: AZI25OT PO (19:26)
[2023-06-05] MEDS ORDERED: ALBU8HFA INH (19:26)
[2023-06-05] MEDS ORDERED: PRED20TA PO (19:26)
[2023-06-05 19:56] VITALS: BP 137/79; PULSE 83; RESP 16; O2SAT 98
== END 2023-06-05 19:59 | disposition home or self-care (01) ==
LOC: ER 16:13
DX: J44.1 Chronic obstructive pulmonary disease with (acute) exacerbation (principal); E11.65 Type 2 diabetes mellitus with hyperglycemia; K21.9 Gastro-esophageal reflux disease without esophagitis; M19.90 Unspecified osteoarthritis, unspecified site; F15.90 Other stimulant use, unspecified, uncomplicated; Z91.09 Other allergy status, other than to drugs and biological substances; Z79.82 Long term (current) use of aspirin; Z79.2 Long term (current) use of antibiotics; Z79.899 Other long term (current) drug therapy; Z98.890 Other specified postprocedural states
CPT/HCPCS: 36415; 71045; 80048; 82948; 83880; 84484; 85025; 85379; 93005; 94640; 96361; 96365; 96368; 96375; 99285; J0456; J0696; J1815; J2930; J7030; 94760

== ENCOUNTER 2023-06-15 05:29 | Inpatient (IN) | payer MEDICARE, MEDICAID ==
[2023-06-15] VITALS (7 sets, daily range): BP systolic 112; BP diastolic 69; PULSE 69–90; RESP 12–24; TEMP 97.3; O2SAT 95–100
[~2023-06-15] VITALS: Ht 165.1 cm; Wt 61.0 kg
[2023-06-15 06:43] LABS: BASOPHILS % (AUTO) 0.2 % (0-1); EOSINOPHILS # (AUTO) 0.1 X10'3 (0-0.9); EOSINOPHILS % (AUTO) 0.4 % (0-6); HEMATOCRIT 42.9 % (42.0-52.0); HEMOGLOBIN 14.2 g/dl (14.0-17.9); LYMPHOCYTES # (AUTO) 2.9 X10'3 (1.1-4.8); LYMPHOCYTES % (AUTO) 14.9 % (21-51); MEAN CORPUSCULAR HEMOGLOBIN 31.3 PG (27.0-31.0); MEAN CORPUSCULAR HGB CONC 33.2 g/dL (33.0-36.5); MEAN CORPUSCULAR VOLUME 94.4 FL (78-98); MEAN PLATELET VOLUME 8.6 FL (7.4-10.4); MONOCYTES # (AUTO) 1.6 X10'3 (0-0.9); MONOCYTES % (AUTO) 8.5 % (2-12); NEUTROPHILS # (AUTO) 14.8 X10'3 (1.8-7.7); PLATELET COUNT 233 X10'3 (140-440); RED BLOOD COUNT 4.55 X10'6 (4.70-6.10); RED CELL DISTRIBUTION WIDTH 13.9 % (11.5-14.5); WHITE BLOOD COUNT 19.4 X10'3 (4.5-11.0)
[2023-06-15 06:50] LABS: ALANINE AMINOTRANSFERASE 127 U/L (12-78); ALBUMIN 3.6 G/DL (3.4-5.0); ALBUMIN/GLOBULIN RATIO 0.9 (1.1-1.5); ALKALINE PHOSPHATASE 73 IU/L (46-116); ANION GAP 9 (8-16); ASPARTATE AMINO TRANSFERASE 69 U/L (10-37); BILIRUBIN,TOTAL 1.2 MG/DL (0.1-1.0); BLOOD UREA NITROGEN 55 MG/DL (7-18); BUN/CREATININE RATIO 36.2 (10.0-20.0); CALCIUM 9.2 MG/DL (8.5-10.1); CHLORIDE 105 MMOL/L (99-107); CREATININE 1.52 MG/DL (0.60-1.10); GLUCOSE 99 MG/DL (70-104); POTASSIUM 4.4 MMOL/L (3.5-5.1); SODIUM 142 MMOL/L (135-145); TOTAL PROTEIN 7.8 G/DL (6.4-8.2); eCRCL 41 ML/MIN; eGFR 46 ML/MIN
[2023-06-15] MEDS: methylPREDNISolone sod succ 125mg/2ml vial IV ONE (06:51)
[2023-06-15 06:57] LABS: PRO BRAIN NATRIURETIC PEPTIDE 2278 PG/ML (0-125)
[2023-06-15] MEDS: ipratropium/albuterol 3ml nebule NEB PRN (06:57)
[2023-06-15] MEDS: azithromycin/NS 500mg/250ml 250 ML IV ONE (07:10)
[2023-06-15] MEDS: furosemide 10 MG/1 ML 10ml inj IV ONE (08:09)
[2023-06-15] MEDS: CefTRIAXone 2gm/D5W 50ml BAG 50 ML IV ONE (08:10)
[2023-06-15] MEDS: nitroGLYCERIN 1gm ointment UD TP ONE (08:13)
[2023-06-15] MEDS: aspirin 325mg tablet, delayed-release (Ecotrin) PO ONE (08:17)
[2023-06-15] MEDS ORDERED: nitroGLYCERIN 0.4mg SUBLingual tab SL PRN (10:30)
[2023-06-15] MEDS ORDERED: aminophylline 250mg/10ml inj. IV PRN (10:30)
[2023-06-15] MEDS ORDERED: metoprolol tartrate 1mg/ml inj IV PRN (10:30)
[2023-06-15] MEDS: MESSAGE TO PHARMACY PO ONE (10:35)
[2023-06-15] MEDS ORDERED: magnesium 4gm in 100ml NS 100 ML IV PRN (10:35)
[2023-06-15] MEDS ORDERED: bisacodyl 10mg suppository rectal RC PRN (10:35)
[2023-06-15] MEDS ORDERED: DEXTROSE 15 GM of carb/4 tabs (each vial/BOTTLE has 4 tablets) PO PRN (10:35)
[2023-06-15] MEDS ORDERED: dextrose 50%-water 50ml dispensing syringe IV PRN ×2 (10:35)
[2023-06-15] MEDS ORDERED: INSULIN LISPRO 100 UNIT/ML INSULN.PEN MULTI-DOSE SQ SCH (10:35)
[2023-06-15] MEDS ORDERED: albuterol 2.5 MG/3 ML nebule NEB PRN (10:35)
[2023-06-15] MEDS ORDERED: ondansetron/PF 4mg/2ml inj IV PRN (10:35)
[2023-06-15] MEDS ORDERED: potassium Cl 40MEQ/1/2NS 520ml 520 ML IV PRN (10:35)
[2023-06-15] MEDS ORDERED: potassium Cl 20 mEq SR tablet PO PRN ×2 (10:35)
[2023-06-15] MEDS ORDERED: mag hydrox/Alum hydrox/simeth 30ml oral suspension PO PRN (10:35)
[2023-06-15] MEDS ORDERED: acetaminophen 325mg tablet PO PRN ×2 (10:35)
[2023-06-15] MEDS ORDERED: magnesium 2GM in 50ml NS 50 ML IV PRN (10:35)
[2023-06-15] MEDS: ipratropium/albuterol 3ml nebule NEB SCH (11:00)
[2023-06-15] MEDS: levoFLOXACIN-Levaquin 500mg/D5 100 ML IV ONE (12:02)
[2023-06-15 13:18] LABS: ALBUMIN 3.3 G/DL (3.4-5.0); ANION GAP 14 (8-16); BLOOD UREA NITROGEN 59 MG/DL (7-18); BUN/CREATININE RATIO 39.1 (10.0-20.0); CALCIUM 8.7 MG/DL (8.5-10.1); CHLORIDE 102 MMOL/L (99-107); CREATININE 1.51 MG/DL (0.60-1.10); GLUCOSE 244 MG/DL (70-104); SODIUM 139 MMOL/L (135-145); TOTAL CARBON DIOXIDE 23.3 MMOL/L (24-32); eCRCL 42 ML/MIN; eGFR 46 ML/MIN
[2023-06-15] MEDS: methylPREDNISolone sod succ 125mg/2ml vial IV SCH (17:57)
[2023-06-15] MEDS: heparin, porcine 5000 units/ml vial SQ SCH (17:58)
[2023-06-15] MEDS: K and/or MAG REPLACEMENT MC SCH (20:00)
[2023-06-15] MEDS: insulin glargine (Lantus) pen - multi-dose SQ SCH (21:42)
[2023-06-15] MEDS: nicotine 14mg patch - 24hr TD SCH (21:42)
[2023-06-15] MEDS: docusate sod 100mg capsule PO SCH (22:03)
[2023-06-16] VITALS (22 sets, daily range): BP systolic 91–118; BP diastolic 47–71; PULSE 69–94; RESP 12–26; TEMP 97.4–98.1; O2SAT 94–100
[2023-06-16] MEDS: HYDROcodone/acetaminophen 5mg/325mg tablet PO PRN (01:08)
[2023-06-16 06:47] LABS: D-DIMER 0.36 MG/L FEU (0-0.50)
[2023-06-16 06:59] LABS: BASOPHILS % (AUTO) 0.1 % (0-1); EOSINOPHILS % (AUTO) 0 % (0-6); HEMATOCRIT 39.6 % (42.0-52.0); HEMOGLOBIN 13.6 g/dl (14.0-17.9); LYMPHOCYTES # (AUTO) 0.7 X10'3 (1.1-4.8); LYMPHOCYTES % (AUTO) 10.2 % (21-51); MEAN CORPUSCULAR HEMOGLOBIN 32.5 PG (27.0-31.0); MEAN CORPUSCULAR HGB CONC 34.3 g/dL (33.0-36.5); MEAN CORPUSCULAR VOLUME 94.8 FL (78-98); MEAN PLATELET VOLUME 9.2 FL (7.4-10.4); MONOCYTES # (AUTO) 0.2 X10'3 (0-0.9); MONOCYTES % (AUTO) 2.5 % (2-12); NEUTROPHILS # (AUTO) 6.4 X10'3 (1.8-7.7); NEUTROPHILS % (AUTO) 87.2 % (42-75); PLATELET COUNT 192 X10'3 (140-440); RED BLOOD COUNT 4.18 X10'6 (4.70-6.10); RED CELL DISTRIBUTION WIDTH 13.9 % (11.5-14.5); WHITE BLOOD COUNT 7.4 X10'3 (4.5-11.0)
[2023-06-16 07:01] LABS: ALANINE AMINOTRANSFERASE 99 U/L (12-78); ALBUMIN 3.1 G/DL (3.4-5.0); ALBUMIN/GLOBULIN RATIO 0.8 (1.1-1.5); ALKALINE PHOSPHATASE 73 IU/L (46-116); ANION GAP 11 (8-16); ASPARTATE AMINO TRANSFERASE 37 U/L (10-37); BILIRUBIN,TOTAL 0.6 MG/DL (0.1-1.0); BLOOD UREA NITROGEN 64 MG/DL (7-18); BUN/CREATININE RATIO 43.8 (10.0-20.0); CALCIUM 8.6 MG/DL (8.5-10.1); CHLORIDE 101 MMOL/L (99-107); CREATININE 1.46 MG/DL (0.60-1.10); GLUCOSE 288 MG/DL (70-104); MAGNESIUM 2.8 MG/DL (1.5-2.4); SODIUM 137 MMOL/L (135-145); TOTAL CARBON DIOXIDE 24.6 MMOL/L (24-32); TOTAL PROTEIN 7.1 G/DL (6.4-8.2); eCRCL 43 ML/MIN; eGFR 48 ML/MIN
[2023-06-16] MEDS: levoFLOXACIN-Levaquin 250mg/D5 50 ML IV SCH (07:54)
[2023-06-16] MEDS: insulin Lispro (HumaLOG) vial - multi-dose SQ SCH (08:20)
[2023-06-16] MEDS: regadenoson 0.4mg/5ml syringe IV PRN (09:43)
[2023-06-16] MEDS: magnesium hydroxide 30ml (MOM) UD suspension PO PRN (15:14)
[2023-06-16] MEDS: HYDROcodone/acetaminophen 10/325mg tab PO PRN (19:49)
[2023-06-17] VITALS (21 sets, daily range): BP systolic 99–121; BP diastolic 40–70; PULSE 60–88; RESP 14–20; TEMP 97.7–98.2; O2SAT 93–98
[2023-06-17 07:39] LABS: BASOPHILS % (AUTO) 0 % (0-1); EOSINOPHILS % (AUTO) 0 % (0-6); HEMATOCRIT 37.8 % (42.0-52.0); HEMOGLOBIN 12.7 g/dl (14.0-17.9); LYMPHOCYTES # (AUTO) 1.4 X10'3 (1.1-4.8); LYMPHOCYTES % (AUTO) 7.2 % (21-51); MEAN CORPUSCULAR HEMOGLOBIN 31.8 PG (27.0-31.0); MEAN CORPUSCULAR HGB CONC 33.6 g/dL (33.0-36.5); MEAN CORPUSCULAR VOLUME 94.5 FL (78-98); MEAN PLATELET VOLUME 9.6 FL (7.4-10.4); MONOCYTES # (AUTO) 0.7 X10'3 (0-0.9); MONOCYTES % (AUTO) 3.7 % (2-12); NEUTROPHILS # (AUTO) 16.9 X10'3 (1.8-7.7); NEUTROPHILS % (AUTO) 89.1 % (42-75); PLATELET COUNT 196 X10'3 (140-440); RED CELL DISTRIBUTION WIDTH 13.6 % (11.5-14.5)
[2023-06-17 08:14] LABS: ALANINE AMINOTRANSFERASE 79 U/L (12-78); ALBUMIN 2.8 G/DL (3.4-5.0); ALBUMIN/GLOBULIN RATIO 0.8 (1.1-1.5); ALKALINE PHOSPHATASE 60 IU/L (46-116); ANION GAP 5 (8-16); ASPARTATE AMINO TRANSFERASE 23 U/L (10-37); BILIRUBIN,TOTAL 0.6 MG/DL (0.1-1.0); BLOOD UREA NITROGEN 52 MG/DL (7-18); BUN/CREATININE RATIO 40.3 (10.0-20.0); CALCIUM 8.3 MG/DL (8.5-10.1); CHLORIDE 102 MMOL/L (99-107); CREATININE 1.29 MG/DL (0.60-1.10); GLUCOSE 180 MG/DL (70-104); MAGNESIUM 2.6 MG/DL (1.5-2.4); POTASSIUM 4.8 MMOL/L (3.5-5.1); SODIUM 136 MMOL/L (135-145); TOTAL CARBON DIOXIDE 29.1 MMOL/L (24-32); TOTAL PROTEIN 6.4 G/DL (6.4-8.2); eCRCL 49 ML/MIN; eGFR 56 ML/MIN
[2023-06-17] MEDS: methylPREDNISolone sod succ/PF 40mg inj. IV SCH (10:31)
[2023-06-17] MEDS ORDERED: mag & alum hydrox/simeth susp 40 ML, diphenhydrAMINE oral solution 100 MG, LIDOcaine 2%... PO PRN (15:05)
[2023-06-17] MEDS: LORazepam 2 mg/ml vial IV ONE (17:48)
[2023-06-17] MEDS: DIPHENHYDRAMINE PO PRN (17:50)
[2023-06-17] MEDS: MAG PO PRN (17:50)
[2023-06-17] MEDS: [UNRECOGNIZED DRUG - OTHER] PO PRN (17:50)
[2023-06-17] MEDS: ALUM HYDROX PO PRN (17:50)
[2023-06-17] MEDS: SIMETH PO PRN (17:50)
[2023-06-18] VITALS (19 sets, daily range): BP systolic 108–126; BP diastolic 51–72; PULSE 61–95; RESP 15–34; TEMP 97.5–98.2; O2SAT 94–98
[2023-06-18 06:29] LABS: BASOPHILS % (AUTO) 0 % (0-1); EOSINOPHILS % (AUTO) 0 % (0-6); HEMATOCRIT 38.2 % (42.0-52.0); HEMOGLOBIN 12.9 g/dl (14.0-17.9); LYMPHOCYTES # (AUTO) 0.8 X10'3 (1.1-4.8); LYMPHOCYTES % (AUTO) 6.1 % (21-51); MEAN CORPUSCULAR HEMOGLOBIN 32.1 PG (27.0-31.0); MEAN CORPUSCULAR HGB CONC 33.8 g/dL (33.0-36.5); MEAN PLATELET VOLUME 9.4 FL (7.4-10.4); MONOCYTES # (AUTO) 0.5 X10'3 (0-0.9); MONOCYTES % (AUTO) 3.8 % (2-12); NEUTROPHILS # (AUTO) 11.4 X10'3 (1.8-7.7); NEUTROPHILS % (AUTO) 90.1 % (42-75); PLATELET COUNT 182 X10'3 (140-440); RED BLOOD COUNT 4.02 X10'6 (4.70-6.10); RED CELL DISTRIBUTION WIDTH 13.8 % (11.5-14.5); WHITE BLOOD COUNT 12.6 X10'3 (4.5-11.0)
[2023-06-18 06:53] LABS: ALANINE AMINOTRANSFERASE 67 U/L (12-78); ALBUMIN 2.8 G/DL (3.4-5.0); ALBUMIN/GLOBULIN RATIO 0.8 (1.1-1.5); ALKALINE PHOSPHATASE 60 IU/L (46-116); ANION GAP 2 (8-16); ASPARTATE AMINO TRANSFERASE 20 U/L (10-37); BILIRUBIN,TOTAL 0.5 MG/DL (0.1-1.0); BLOOD UREA NITROGEN 46 MG/DL (7-18); BUN/CREATININE RATIO 39.3 (10.0-20.0); CALCIUM 8.7 MG/DL (8.5-10.1); CHLORIDE 104 MMOL/L (99-107); CREATININE 1.17 MG/DL (0.60-1.10); GLUCOSE 230 MG/DL (70-104); MAGNESIUM 2.4 MG/DL (1.5-2.4); SODIUM 134 MMOL/L (135-145); TOTAL CARBON DIOXIDE 28.1 MMOL/L (24-32); TOTAL PROTEIN 6.5 G/DL (6.4-8.2); eCRCL 54 ML/MIN; eGFR 62 ML/MIN
[2023-06-18] MEDS ORDERED: LEVO-65 PO (11:13)
[2023-06-18] MEDS ORDERED: PRED20TA PO (11:13)
[2023-06-18] MEDS ORDERED: ALBU2.5V7 NEB (11:13)
[2023-06-18] MEDS ORDERED: NICO-631 TD (11:13)
[2023-06-18] MEDS ORDERED: FAMO20TA8 PO (11:13)
[2023-06-18] MEDS ORDERED: GLYB5TAB7 PO (11:13)
[2023-06-18] MEDS: DEXTROSE 15 GM of carb/4 tabs (each vial/BOTTLE has 4 tablets) PO PRN (12:37)
[2023-06-18] MEDS ORDERED: METF-1203 PO (19:15)
[2023-06-18] MEDS: glucagon, human recombinant 1mg kit SUBCUT PRN (22:15)
[2023-06-19 02:00] VITALS: BP 115/58; PULSE 80; RESP 16; TEMP 97.8; O2SAT 98
[2023-06-19 02:35] VITALS: PULSE 72; RESP 18; O2SAT 97
[2023-06-19 02:40] VITALS: PULSE 63; RESP 20
[2023-06-19 06:00] VITALS: BP 129/45; PULSE 75; RESP 18; TEMP 97.8; O2SAT 94
[2023-06-19 06:37] LABS: BASOPHILS % (AUTO) 0.1 % (0-1); EOSINOPHILS % (AUTO) 0 % (0-6); HEMATOCRIT 40.8 % (42.0-52.0); HEMOGLOBIN 13.6 g/dl (14.0-17.9); LYMPHOCYTES # (AUTO) 1.4 X10'3 (1.1-4.8); LYMPHOCYTES % (AUTO) 9.7 % (21-51); MEAN CORPUSCULAR HEMOGLOBIN 32.1 PG (27.0-31.0); MEAN CORPUSCULAR HGB CONC 33.4 g/dL (33.0-36.5); MEAN CORPUSCULAR VOLUME 95.9 FL (78-98); MEAN PLATELET VOLUME 9.4 FL (7.4-10.4); MONOCYTES # (AUTO) 0.5 X10'3 (0-0.9); MONOCYTES % (AUTO) 3.6 % (2-12); NEUTROPHILS # (AUTO) 12.3 X10'3 (1.8-7.7); NEUTROPHILS % (AUTO) 86.6 % (42-75); PLATELET COUNT 153 X10'3 (140-440); RED BLOOD COUNT 4.25 X10'6 (4.70-6.10); RED CELL DISTRIBUTION WIDTH 13.7 % (11.5-14.5); WHITE BLOOD COUNT 14.2 X10'3 (4.5-11.0)
[2023-06-19 06:54] LABS: ALANINE AMINOTRANSFERASE 142 U/L (12-78); ALBUMIN 2.9 G/DL (3.4-5.0); ALBUMIN/GLOBULIN RATIO 0.8 (1.1-1.5); ALKALINE PHOSPHATASE 64 IU/L (46-116); ANION GAP 4 (8-16); ASPARTATE AMINO TRANSFERASE 81 U/L (10-37); BILIRUBIN,TOTAL 0.8 MG/DL (0.1-1.0); BLOOD UREA NITROGEN 40 MG/DL (7-18); BUN/CREATININE RATIO 37.4 (10.0-20.0); CALCIUM 8.5 MG/DL (8.5-10.1); CHLORIDE 102 MMOL/L (99-107); CREATININE 1.07 MG/DL (0.60-1.10); GLUCOSE 212 MG/DL (70-104); MAGNESIUM 2.3 MG/DL (1.5-2.4); SODIUM 132 MMOL/L (135-145); TOTAL CARBON DIOXIDE 25.6 MMOL/L (24-32); TOTAL PROTEIN 6.6 G/DL (6.4-8.2); eCRCL 59 ML/MIN; eGFR 69 ML/MIN
[2023-06-19 07:36] VITALS: PULSE 87; RESP 20; O2SAT 95
[2023-06-19 07:41] VITALS: PULSE 76; RESP 20
[2023-06-19] MEDS ORDERED: ALBU2.5V7 NEB (10:44)
== END 2023-06-19 12:38 | disposition left against medical advice (07) | DRG 177 ==
LOC: ER 05:29 → ED HOLD 10:40 → PCU 3S 23:48
PROVIDERS: ADMIT Family Medicine; ATTEND Family Medicine
PROC: 3E073KZ Introduction of Other Diagnostic Substance into Coronary Artery, Percutaneous Approach (ICD-10-PCS; 2023-06-16)
PROC: 4A02XM4 Measurement of Cardiac Total Activity, External Approach (ICD-10-PCS; 2023-06-16)
PROC: 0HB7XZZ Excision of Abdomen Skin, External Approach (ICD-10-PCS; principal; 2023-06-19)
DX: J69.0 Pneumonitis due to inhalation of food and vomit (principal); J96.01 Acute respiratory failure with hypoxia; N17.0 Acute kidney failure with tubular necrosis; J44.1 Chronic obstructive pulmonary disease with (acute) exacerbation; S31.109A Unspecified open wound of abdominal wall, unspecified quadrant without penetration into peritoneal cavity, initial encounter; K21.9 Gastro-esophageal reflux disease without esophagitis; F41.9 Anxiety disorder, unspecified; F32.A Depression, unspecified; G89.29 Other chronic pain; M54.9 Dorsalgia, unspecified; Z53.29 Procedure and treatment not carried out because of patient's decision for other reasons; D72.829 Elevated white blood cell count, unspecified; E11.649 Type 2 diabetes mellitus with hypoglycemia without coma; F17.210 Nicotine dependence, cigarettes, uncomplicated; B19.20 Unspecified viral hepatitis C without hepatic coma; M94.0 Chondrocostal junction syndrome [Tietze]; K44.9 Diaphragmatic hernia without obstruction or gangrene; R59.1 Generalized enlarged lymph nodes; F19.10 Other psychoactive substance abuse, uncomplicated; I50.9 Heart failure, unspecified; X58.XXXA Exposure to other specified factors, initial encounter; Z82.3 Family history of stroke; Z87.440 Personal history of urinary (tract) infections; Z90.49 Acquired absence of other specified parts of digestive tract; Z80.1 Family history of malignant neoplasm of trachea, bronchus and lung; Z83.3 Family history of diabetes mellitus; Y93.89 Activity, other specified; Y92.89 Other specified places as the place of occurrence of the external cause; Y99.8 Other external cause status; Z88.8 Allergy status to other drugs, medicaments and biological substances
CPT/HCPCS: 36415; 71045; 74176; 78452; 80048; 80053; 82948; 83036; 83605; 83735; 83880; 84145; 84484; 85025; 85379; 87040; 87081; 93005; 93017; 94640; 94760; 99285; A4649; A6258; A6449; A9500; G0378; J0456; J0696; J1610; J1644; J1815; J1940; J1956; J2060; J2785; J2920; J2930; J7040

== ENCOUNTER 2023-10-15 16:55 | Inpatient (IN) | payer MEDICARE, MEDICAID ==
[2023-10-15] VITALS (7 sets, daily range): BP systolic 130; BP diastolic 61; PULSE 83–99; RESP 20–26; TEMP 98.4; O2SAT 94–98
[~2023-10-15] VITALS: Ht 165.1 cm; Wt 55.8 kg
[~2023-10-15 16:55] MED LIST changes: -ALBU2.5V7 NEB; -ALBU8HFA INH; +AMOX-580 PO; -ASPI81TA52 PO; -DOXY-356 PO; -IPRA4AER IH; -NICO-631 TD; +NO HOME MEDS; +OXYC1TAB17 PO; -PRED20TA PO
[2023-10-15 17:24] LABS: BASOPHILS # (AUTO) 0.1 X10'3 (0-0.2); BASOPHILS % (AUTO) 0.7 % (0-1); EOSINOPHILS # (AUTO) 0.3 X10'3 (0-0.9); HEMATOCRIT 41.9 % (42.0-52.0); HEMOGLOBIN 14.3 g/dl (14.0-17.9); LYMPHOCYTES # (AUTO) 2.5 X10'3 (1.1-4.8); LYMPHOCYTES % (AUTO) 29.9 % (21-51); MEAN CORPUSCULAR HEMOGLOBIN 31.8 PG (27.0-31.0); MEAN CORPUSCULAR HGB CONC 34.2 g/dL (33.0-36.5); MEAN CORPUSCULAR VOLUME 93.1 FL (78-98); MEAN PLATELET VOLUME 8.5 FL (7.4-10.4); MONOCYTES # (AUTO) 0.6 X10'3 (0-0.9); MONOCYTES % (AUTO) 6.8 % (2-12); NEUTROPHILS # (AUTO) 4.9 X10'3 (1.8-7.7); NEUTROPHILS % (AUTO) 58.6 % (42-75); PLATELET COUNT 216 X10'3 (140-440); WHITE BLOOD COUNT 8.3 X10'3 (4.5-11.0)
[2023-10-15] MEDS ORDERED: albuterol 2.5 MG/3 ML nebule NEB PRN (17:25)
[2023-10-15] MEDS: methylPREDNISolone sod succ 125mg/2ml vial IV ONE (17:39)
[2023-10-15 17:53] LABS: ALBUMIN 3.6 G/DL (3.4-5.0); ANION GAP -1 (8-16); BLOOD UREA NITROGEN 8 MG/DL (7-18); BUN/CREATININE RATIO 10.4 (10.0-20.0); CALCIUM 9.2 MG/DL (8.5-10.1); CHLORIDE 105 MMOL/L (99-107); CREATININE 0.77 MG/DL (0.60-1.10); GLUCOSE 126 MG/DL (70-104); POTASSIUM 4.1 MMOL/L (3.5-5.1); PRO BRAIN NATRIURETIC PEPTIDE 976 PG/ML (0-125); SODIUM 138 MMOL/L (135-145); TOTAL CARBON DIOXIDE 33.8 MMOL/L (24-32); eCRCL 71 ML/MIN; eGFR > 90 ML/MIN
[2023-10-15] MEDS: albuterol 2.5 MG/3 ML nebule NEB ONE (18:43)
[2023-10-15] MEDS: ipratropium/albuterol 3ml nebule NEB ONE (20:00)
[2023-10-15] MEDS ORDERED: ALBU18HF2 (20:19)
[2023-10-15] MEDS ORDERED: OXYC1TAB17 PO (20:22)
[2023-10-15] MEDS: normal saline 1000ml 1,000 ML IV SCH (21:05)
[2023-10-15] MEDS ORDERED: ondansetron/PF 4mg/2ml inj IV PRN (21:05)
[2023-10-15] MEDS ORDERED: acetaminophen 325mg tablet PO PRN (21:05)
[2023-10-15] MEDS ORDERED: ipratropium/albuterol 3ml nebule NEB PRN (21:05)
[2023-10-15] MEDS ORDERED: magnesium sulf-water 2g/50mL 50 ML IV PRN (21:05)
[2023-10-15] MEDS ORDERED: potassium Cl 20 mEq SR tablet PO PRN ×2 (21:05)
[2023-10-15] MEDS ORDERED: potassium Cl 40MEQ/1/2NS 520ml 520 ML IV PRN (21:05)
[2023-10-15] MEDS ORDERED: magnesium hydroxide 30ml (MOM) UD suspension PO PRN (21:05)
[2023-10-15] MEDS ORDERED: mag hydrox/Alum hydrox/simeth 30ml oral suspension PO PRN (21:05)
[2023-10-15] MEDS ORDERED: magnesium sulf-water 4G/100mL 100 ML IV PRN (21:05)
[2023-10-15] MEDS ORDERED: magnesium Cl slow-release 64mg tablet PO PRN (21:05)
[2023-10-15] MEDS: CefTRIAXone/D5W-Rocephin 1gm 50 ML IV SCH (22:01)
[2023-10-15] MEDS: ipratropium/albuterol 3ml nebule NEB SCH (23:38)
[2023-10-15] MEDS: furosemide 10 MG/1 ML 10ml inj IV SCH (23:39)
[2023-10-15] MEDS: azithromycin/NS 500mg/250ml 250 ML IV SCH (23:55)
[2023-10-16] VITALS (16 sets, daily range): BP systolic 115–126; BP diastolic 65–81; PULSE 86–128; RESP 16–24; TEMP 98.1–98.7; O2SAT 92–98
[2023-10-16 06:15] LABS: BASOPHILS % (AUTO) 0.3 % (0-1); EOSINOPHILS % (AUTO) 0 % (0-6); HEMATOCRIT 43.5 % (42.0-52.0); HEMOGLOBIN 14.7 g/dl (14.0-17.9); LYMPHOCYTES % (AUTO) 19.3 % (21-51); MEAN CORPUSCULAR HEMOGLOBIN 31.6 PG (27.0-31.0); MEAN CORPUSCULAR HGB CONC 33.8 g/dL (33.0-36.5); MEAN CORPUSCULAR VOLUME 93.4 FL (78-98); MONOCYTES # (AUTO) 0.1 X10'3 (0-0.9); NEUTROPHILS % (AUTO) 78.4 % (42-75); PLATELET COUNT 215 X10'3 (140-440); RED BLOOD COUNT 4.66 X10'6 (4.70-6.10); WHITE BLOOD COUNT 5.1 X10'3 (4.5-11.0)
[2023-10-16 06:26] LABS: HEMOGLOBIN A1C 6.3 % (4.5-6.2)
[2023-10-16 06:31] LABS: ALBUMIN 3.5 G/DL (3.4-5.0); ANION GAP 4 (8-16); BLOOD UREA NITROGEN 21 MG/DL (7-18); CALCIUM 9.6 MG/DL (8.5-10.1); CHLORIDE 101 MMOL/L (99-107); CHOL/HDL RATIO 2.6 (0.00-4.99); CHOLESTEROL 135 MG/DL (0-200); CREATININE 1.05 MG/DL (0.60-1.10); GLUCOSE 329 MG/DL (70-104); HDL CHOLESTEROL 52 MG/DL (35-60); LDL CHOLESTEROL 76 MG/DL (50-100); SODIUM 136 MMOL/L (135-145); TOTAL CARBON DIOXIDE 31.2 MMOL/L (24-32); TRIGLYCERIDES 36 MG/DL (20-135); eCRCL 55 ML/MIN; eGFR 71 ML/MIN
[2023-10-16 06:39] LABS: LARGE PLATELETS FEW; PLATELET ESTIMATE NORMAL
[2023-10-16 06:41] LABS: POTASSIUM 4.9 MMOL/L (3.5-5.1)
[2023-10-16] MEDS: methylPREDNISolone sod succ 125mg/2ml vial IV SCH (07:42)
[2023-10-16] MEDS: K and/or MAG REPLACEMENT MC SCH (08:00)
[2023-10-16] MEDS: docusate sod 100mg capsule PO SCH (08:04)
[2023-10-16] MEDS: pantoprazole 40mg Tablet.DR PO SCH (08:04)
[2023-10-16] MEDS: enoxaparin 40mg/0.4ml syringe SQ SCH (19:32)
[2023-10-16] MEDS ORDERED: DEXTROSE 15 GM of carb/4 tabs (each vial/BOTTLE has 4 tablets) PO PRN ×2 (22:00)
[2023-10-16] MEDS ORDERED: dextrose 50%-water 50ml dispensing syringe IV PRN ×2 (22:00)
[2023-10-16] MEDS ORDERED: glucagon, human recombinant 1mg kit SUBCUT PRN (22:00)
[2023-10-16] MEDS: INSULIN LISPRO 100 UNIT/ML INSULN.PEN MULTI-DOSE SQ SCH (22:40)
[2023-10-16] MEDS: insulin glargine (Lantus) pen - multi-dose SQ SCH (22:40)
[2023-10-17] VITALS (11 sets, daily range): BP systolic 133; BP diastolic 79–83; PULSE 53–99; RESP 16–22; TEMP 97.7–98.8; O2SAT 94–98
[2023-10-17 06:55] LABS: BASOPHILS % (AUTO) 0.3 % (0-1); EOSINOPHILS % (AUTO) 0.1 % (0-6); HEMATOCRIT 41.9 % (42.0-52.0); HEMOGLOBIN 14.1 g/dl (14.0-17.9); LYMPHOCYTES # (AUTO) 2.9 X10'3 (1.1-4.8); LYMPHOCYTES % (AUTO) 18.4 % (21-51); MEAN CORPUSCULAR HEMOGLOBIN 31.6 PG (27.0-31.0); MEAN CORPUSCULAR HGB CONC 33.6 g/dL (33.0-36.5); MEAN CORPUSCULAR VOLUME 93.9 FL (78-98); MONOCYTES # (AUTO) 0.9 X10'3 (0-0.9); MONOCYTES % (AUTO) 5.5 % (2-12); NEUTROPHILS % (AUTO) 75.7 % (42-75); PLATELET COUNT 220 X10'3 (140-440); RED BLOOD COUNT 4.47 X10'6 (4.70-6.10); RED CELL DISTRIBUTION WIDTH 14.2 % (11.5-14.5); WHITE BLOOD COUNT 15.8 X10'3 (4.5-11.0)
[2023-10-17 07:07] LABS: ALBUMIN 3.4 G/DL (3.4-5.0); ANION GAP 2 (8-16); BLOOD UREA NITROGEN 29 MG/DL (7-18); BUN/CREATININE RATIO 25.4 (10.0-20.0); CALCIUM 9.4 MG/DL (8.5-10.1); CHLORIDE 104 MMOL/L (99-107); CREATININE 1.14 MG/DL (0.60-1.10); GLUCOSE 124 MG/DL (70-104); SODIUM 140 MMOL/L (135-145); TOTAL CARBON DIOXIDE 33.8 MMOL/L (24-32); eCRCL 50 ML/MIN; eGFR 64 ML/MIN
[2023-10-17] MEDS ORDERED: IPRA3AMP9 NEB (12:22)
[2023-10-17] MEDS ORDERED: INSULIN LISPRO 100 UNIT/ML INSULN.PEN MULTI-DOSE SQ SCH (12:35)
[2023-10-17] MEDS: INSULIN LISPRO 100 UNIT/ML INSULN.PEN MULTI-DOSE SQ ONE (12:38)
[2023-10-17] MEDS ORDERED: PRED10TA23 PO (15:16)
[2023-10-17] MEDS ORDERED: PANT-47 PO (15:17)
== END 2023-10-17 17:13 | disposition home or self-care (01) | DRG 190 ==
LOC: ER 16:55 → ED HOLD 21:04 → ORTHO 4S 22:40
PROVIDERS: ADMIT Internal Medicine Critical Care Medicine; ATTEND Internal Medicine
DX: J44.1 Chronic obstructive pulmonary disease with (acute) exacerbation (principal); I21.A1 Myocardial infarction type 2; I50.32 Chronic diastolic (congestive) heart failure; N17.9 Acute kidney failure, unspecified; K44.9 Diaphragmatic hernia without obstruction or gangrene; F32.A Depression, unspecified; F41.9 Anxiety disorder, unspecified; T50.1X5A Adverse effect of loop [high-ceiling] diuretics, initial encounter; E11.9 Type 2 diabetes mellitus without complications; G89.29 Other chronic pain; K21.9 Gastro-esophageal reflux disease without esophagitis; M54.9 Dorsalgia, unspecified; Z90.49 Acquired absence of other specified parts of digestive tract; Z91.048 Other nonmedicinal substance allergy status; Y92.89 Other specified places as the place of occurrence of the external cause
CPT/HCPCS: 36415; 71045; 80048; 80061; 82948; 83036; 83605; 83880; 84145; 84484; 85008; 85025; 87040; 87081; 87502; 87503; 87811; 93005; 94640; 94760; 96374; 97116; 97161; 97530; 99285; G0378; J0456; J0696; J1650; J1815; J1940; J2919; J7030; J7040

== ENCOUNTER 2023-11-29 22:55 | Inpatient (IN) | payer MEDICARE, MEDICAID ==
[~2023-11-29] VITALS: Ht 167.6 cm; Wt 63.6 kg
[~2023-11-29 22:55] MED LIST changes: -AMOX-580 PO; +IPRA3AMP9 NEB; -NO HOME MEDS; +PANT-47 PO
[2023-11-29 23:20] VITALS: PULSE 107; RESP 24
[2023-11-29] MEDS: ipratropium/albuterol 3ml nebule NEB ONE (23:20)
[2023-11-29 23:32] VITALS: PULSE 99; RESP 24; O2SAT 98
[2023-11-30] VITALS (16 sets, daily range): BP systolic 115–134; BP diastolic 60–70; PULSE 72–107; RESP 13–26; TEMP 97.6–98.7; O2SAT 94–100
[2023-11-30] MEDS: methylPREDNISolone sod succ/PF 40mg inj. IV SCH (00:07)
[2023-11-30 00:08] LABS: BASOPHILS # (AUTO) 0.1 X10'3 (0-0.2); BASOPHILS % (AUTO) 0.5 % (0-1); EOSINOPHILS # (AUTO) 0.3 X10'3 (0-0.9); HEMATOCRIT 41.3 % (42.0-52.0); HEMOGLOBIN 14.2 g/dl (14.0-17.9); LYMPHOCYTES # (AUTO) 3.5 X10'3 (1.1-4.8); LYMPHOCYTES % (AUTO) 30.8 % (21-51); MEAN CORPUSCULAR HEMOGLOBIN 31.4 PG (27.0-31.0); MEAN CORPUSCULAR HGB CONC 34.5 g/dL (33.0-36.5); MEAN CORPUSCULAR VOLUME 91.2 FL (78-98); MEAN PLATELET VOLUME 8.1 FL (7.4-10.4); MONOCYTES % (AUTO) 8.3 % (2-12); NEUTROPHILS # (AUTO) 6.6 X10'3 (1.8-7.7); NEUTROPHILS % (AUTO) 57.4 % (42-75); PLATELET COUNT 185 X10'3 (140-440); RED BLOOD COUNT 4.53 X10'6 (4.70-6.10); RED CELL DISTRIBUTION WIDTH 14.3 % (11.5-14.5); WHITE BLOOD COUNT 11.5 X10'3 (4.5-11.0)
[2023-11-30 00:16] LABS: ALANINE AMINOTRANSFERASE 45 U/L (12-78); ALBUMIN/GLOBULIN RATIO 1.1 (1.1-1.5); ALKALINE PHOSPHATASE 91 IU/L (46-116); ANION GAP 8 (8-16); ASPARTATE AMINO TRANSFERASE 31 U/L (10-37); BILIRUBIN,TOTAL 0.5 MG/DL (0.1-1.0); BLOOD UREA NITROGEN 17 MG/DL (7-18); BUN/CREATININE RATIO 15.9 (10.0-20.0); CALCIUM 9.6 MG/DL (8.5-10.1); CHLORIDE 104 MMOL/L (99-107); CREATININE 1.07 MG/DL (0.60-1.10); GLUCOSE 102 MG/DL (70-104); SODIUM 145 MMOL/L (135-145); TOTAL CARBON DIOXIDE 33.1 MMOL/L (24-32); TOTAL PROTEIN 7.8 G/DL (6.4-8.2); eCRCL 61 ML/MIN; eGFR 69 ML/MIN
[2023-11-30 00:23] LABS: PRO BRAIN NATRIURETIC PEPTIDE 630 PG/ML (0-125)
[2023-11-30 01:16] LABS: BILIRUBIN,URINE NEGATIVE (Neg); CLARITY,URINE CLEAR (Clear); COLOR,URINE AMBER (Yellow); GLUCOSE, URINE 100 mg/dl (Neg); KETONES,URINE NEGATIVE (Neg); LEUKOCYTE ESTERASE ,URINE NEGATIVE (Neg); NITRITES, URINE NEGATIVE (Neg); OCCULT BLOOD,URINE NEGATIVE (Neg); PROTEIN,URINE 30 mg/dl (Neg)
[2023-11-30 01:33] LABS: UA COLLECTION TYPE CLN CATCH MIDSTREAM
[2023-11-30 01:36] LABS: MUCUS STRANDS FEW /LPF (Neg)
[2023-11-30 01:38] LABS: BACTERIA,URINE FEW /HPF (Neg); RBC,URINE 0-2 /HPF (0-2); WBC,URINE 0-4 /HPF (0-4)
[2023-11-30 01:39] LABS: SQUAMOUS EPITHELIAL CELL,UR MODERATE /LPF (FEW)
[2023-11-30] MEDS ORDERED: mag hydrox/Alum hydrox/simeth 30ml oral suspension PO PRN (02:25)
[2023-11-30] MEDS ORDERED: potassium Cl 40MEQ/1/2NS 520ml 520 ML IV PRN (02:25)
[2023-11-30] MEDS ORDERED: ondansetron/PF 4mg/2ml inj IV PRN (02:25)
[2023-11-30] MEDS ORDERED: potassium Cl 20 mEq SR tablet PO PRN ×2 (02:25)
[2023-11-30] MEDS ORDERED: magnesium hydroxide 30ml (MOM) UD suspension PO PRN (02:25)
[2023-11-30] MEDS: PERFLUTREN PROTEIN-A MICROSPHR (Optison) 0.22 MG/ML 3ML VIAL IV ONE (02:25)
[2023-11-30] MEDS ORDERED: acetaminophen 325mg tablet PO PRN (02:25)
[2023-11-30] MEDS ORDERED: magnesium sulf-water 4G/100mL 100 ML IV PRN (02:25)
[2023-11-30] MEDS ORDERED: magnesium sulf-water 2g/50mL 50 ML IV PRN (02:25)
[2023-11-30] MEDS ORDERED: azithromycin/NS 500mg/250ml 250 ML IV SCH (02:25)
[2023-11-30] MEDS ORDERED: magnesium Cl slow-release 64mg tablet PO PRN (02:25)
[2023-11-30] MEDS: azithromycin/NS 500mg/250ml 250 ML IV SCH (02:43)
[2023-11-30] MEDS: ipratropium/albuterol 3ml nebule NEB SCH (03:47)
[2023-11-30 04:10] LABS: MAGNESIUM 1.9 MG/DL (1.5-2.4); POTASSIUM 4.3 MMOL/L (3.5-5.1)
[2023-11-30] MEDS: normal saline 1000ml 1,000 ML IV SCH (04:29)
[2023-11-30] MEDS: K and/or MAG REPLACEMENT MC SCH (08:00)
[2023-11-30 08:48] LABS: BASOPHILS % (AUTO) 0.1 % (0-1); EOSINOPHILS % (AUTO) 0.1 % (0-6); HEMATOCRIT 39.7 % (42.0-52.0); HEMOGLOBIN 13.4 g/dl (14.0-17.9); LYMPHOCYTES # (AUTO) 0.7 X10'3 (1.1-4.8); LYMPHOCYTES % (AUTO) 11.6 % (21-51); MEAN CORPUSCULAR HGB CONC 33.6 g/dL (33.0-36.5); MEAN CORPUSCULAR VOLUME 92.1 FL (78-98); MEAN PLATELET VOLUME 8.5 FL (7.4-10.4); MONOCYTES % (AUTO) 0.7 % (2-12); NEUTROPHILS # (AUTO) 5.5 X10'3 (1.8-7.7); NEUTROPHILS % (AUTO) 87.5 % (42-75); PLATELET COUNT 159 X10'3 (140-440); RED BLOOD COUNT 4.32 X10'6 (4.70-6.10); RED CELL DISTRIBUTION WIDTH 14.7 % (11.5-14.5); WHITE BLOOD COUNT 6.3 X10'3 (4.5-11.0)
[2023-11-30 09:33] LABS: ALANINE AMINOTRANSFERASE 41 U/L (12-78); ALBUMIN 3.6 G/DL (3.4-5.0); ALKALINE PHOSPHATASE 87 IU/L (46-116); ANION GAP 5 (8-16); ASPARTATE AMINO TRANSFERASE 28 U/L (10-37); BILIRUBIN,TOTAL 0.4 MG/DL (0.1-1.0); BLOOD UREA NITROGEN 15 MG/DL (7-18); BUN/CREATININE RATIO 17.9 (10.0-20.0); CALCIUM 8.9 MG/DL (8.5-10.1); CHLORIDE 105 MMOL/L (99-107); CREATININE 0.84 MG/DL (0.60-1.10); GLUCOSE 222 MG/DL (70-104); POTASSIUM 4.5 MMOL/L (3.5-5.1); SODIUM 141 MMOL/L (135-145); TOTAL CARBON DIOXIDE 30.6 MMOL/L (24-32); TOTAL PROTEIN 7.2 G/DL (6.4-8.2); eCRCL 78 ML/MIN; eGFR > 90 ML/MIN
[2023-11-30] MEDS: CefTRIAXone 2gm/D5W 50ml BAG 50 ML IV SCH (11:17)
[2023-11-30] MEDS: predniSONE 20 mg tablet PO SCH ×2 (11:34→20:43)
[2023-11-30] MEDS: docusate sod 100mg capsule PO SCH (11:35)
[2023-11-30] MEDS ORDERED: glucagon, human recombinant 1mg kit SUBCUT PRN (16:15)
[2023-11-30] MEDS ORDERED: DEXTROSE 15 GM of carb/4 tabs (each vial/BOTTLE has 4 tablets) PO PRN ×2 (16:15)
[2023-11-30] MEDS ORDERED: dextrose 50%-water 50ml dispensing syringe IV PRN ×2 (16:15)
[2023-11-30] MEDS: INSULIN LISPRO 100 UNIT/ML INSULN.PEN MULTI-DOSE SQ SCH ×2 (17:40→23:05)
[2023-11-30] MEDS ORDERED: albuterol 2.5 MG/3 ML nebule NEB SCH (20:00)
[2023-11-30] MEDS: enoxaparin 40mg/0.4ml syringe SQ SCH (20:42)
[2023-11-30] MEDS: insulin glargine (Lantus) pen - multi-dose SQ SCH (20:50)
[2023-11-30] MEDS ORDERED: INSULIN LISPRO 100 UNIT/ML INSULN.PEN MULTI-DOSE SQ SCH (21:50)
[2023-11-30] MEDS ORDERED: albuterol 2.5 MG/3 ML nebule NEB PRN (23:34)
[2023-12-01] VITALS (9 sets, daily range): BP systolic 115–121; BP diastolic 64–77; PULSE 76–111; RESP 13–26; TEMP 96.6–98.6; O2SAT 93–97
[2023-12-01] MEDS ORDERED: INSULIN LISPRO 100 UNIT/ML INSULN.PEN MULTI-DOSE SQ SCH (07:00)
[2023-12-01 07:06] LABS: BASOPHILS % (AUTO) 0.1 % (0-1); EOSINOPHILS % (AUTO) 0.1 % (0-6); HEMATOCRIT 37.2 % (42.0-52.0); HEMOGLOBIN 12.2 g/dl (14.0-17.9); LYMPHOCYTES # (AUTO) 1.3 X10'3 (1.1-4.8); LYMPHOCYTES % (AUTO) 9.2 % (21-51); MEAN CORPUSCULAR HEMOGLOBIN 30.6 PG (27.0-31.0); MEAN CORPUSCULAR HGB CONC 32.8 g/dL (33.0-36.5); MEAN CORPUSCULAR VOLUME 93.2 FL (78-98); MONOCYTES # (AUTO) 0.4 X10'3 (0-0.9); MONOCYTES % (AUTO) 2.6 % (2-12); NEUTROPHILS # (AUTO) 12.1 X10'3 (1.8-7.7); PLATELET COUNT 173 X10'3 (140-440); RED BLOOD COUNT 3.99 X10'6 (4.70-6.10); RED CELL DISTRIBUTION WIDTH 14.4 % (11.5-14.5); WHITE BLOOD COUNT 13.8 X10'3 (4.5-11.0)
[2023-12-01 07:22] LABS: ALANINE AMINOTRANSFERASE 36 U/L (12-78); ALBUMIN 3.2 G/DL (3.4-5.0); ALBUMIN/GLOBULIN RATIO 0.9 (1.1-1.5); ALKALINE PHOSPHATASE 68 IU/L (46-116); ANION GAP 4 (8-16); ASPARTATE AMINO TRANSFERASE 20 U/L (10-37); BILIRUBIN,TOTAL 0.3 MG/DL (0.1-1.0); BLOOD UREA NITROGEN 25 MG/DL (7-18); BUN/CREATININE RATIO 27.2 (10.0-20.0); CALCIUM 8.6 MG/DL (8.5-10.1); CHLORIDE 107 MMOL/L (99-107); CREATININE 0.92 MG/DL (0.60-1.10); GLUCOSE 192 MG/DL (70-104); MAGNESIUM 2.1 MG/DL (1.5-2.4); POTASSIUM 4.3 MMOL/L (3.5-5.1); SODIUM 141 MMOL/L (135-145); TOTAL PROTEIN 6.6 G/DL (6.4-8.2); eCRCL 71 ML/MIN; eGFR 82 ML/MIN
[2023-12-01] MEDS ORDERED: LEVO750T68 PO (12:37)
[2023-12-01] MEDS ORDERED: NICO-631 TOP (13:11)
[2023-12-01 13:24] LABS: URINE AMPHETAMINE SCREEN POSITIVE (Neg); URINE BARBITUATE SCREEN NEGATIVE (Neg); URINE BENZODIAZEPINES SCREEN NEGATIVE (Neg); URINE CANNABINOID SCREEN NEGATIVE (Neg); URINE COCAINE SCREEN NEGATIVE (Neg); URINE METHADONE SCREEN NEGATIVE (Neg); URINE OPIATE SCREEN NEGATIVE (Neg); URINE PHENCYCLIDINE SCREEN NEGATIVE (Neg)
[2023-12-01] MEDS ORDERED: IPRA3AMP9 NEB (16:03)
[2023-12-01] MEDS ORDERED: insulin glargine (Lantus) pen - multi-dose SQ SCH (21:00)
== END 2023-12-01 16:03 | disposition home or self-care (01) | DRG 193 ==
LOC: ER 22:55 → ED HOLD 11-30 02:36 → ORTHO 4S 11-30 09:10
PROVIDERS: ADMIT Surgery Surgical Critical Care; ATTEND Internal Medicine
DX: J18.9 Pneumonia, unspecified organism (principal); I21.A1 Myocardial infarction type 2; J96.01 Acute respiratory failure with hypoxia; J44.1 Chronic obstructive pulmonary disease with (acute) exacerbation; J44.0 Chronic obstructive pulmonary disease with (acute) lower respiratory infection; E11.9 Type 2 diabetes mellitus without complications; B19.20 Unspecified viral hepatitis C without hepatic coma; F15.90 Other stimulant use, unspecified, uncomplicated; F32.A Depression, unspecified; F41.9 Anxiety disorder, unspecified; G89.29 Other chronic pain; K21.9 Gastro-esophageal reflux disease without esophagitis; M54.9 Dorsalgia, unspecified; Z20.822 Contact with and (suspected) exposure to COVID-19; F17.210 Nicotine dependence, cigarettes, uncomplicated; S40.812A Abrasion of left upper arm, initial encounter; X58.XXXA Exposure to other specified factors, initial encounter; Z80.1 Family history of malignant neoplasm of trachea, bronchus and lung; Y93.89 Activity, other specified; Z82.3 Family history of stroke; Z84.89 Family history of other specified conditions; Z90.49 Acquired absence of other specified parts of digestive tract; Z91.148 Patient's other noncompliance with medication regimen for other reason; Y92.89 Other specified places as the place of occurrence of the external cause; Y99.8 Other external cause status
CPT/HCPCS: 36415; 71045; 80053; 80305; 81001; 82948; 83605; 83735; 83880; 84132; 84145; 84484; 85025; 87040; 87081; 87502; 87503; 87811; 93005; 93306; 94640; 94760; 96374; 97116; 97161; 97530; 99291; G0378; J0456; J0696; J1650; J1815; J2919; J7030; J7512

== ENCOUNTER 2024-02-05 10:21 | Inpatient (IN) | payer MEDICARE, MEDICAID ==
[~2024-02-05] VITALS: Ht 165.1 cm; Wt 61.4 kg
[2024-02-05] VITALS (11 sets, daily range): BP systolic 109–128; BP diastolic 43–69; PULSE 79–105; RESP 16–25; TEMP 98–98.6; O2SAT 94–99
[2024-02-05] MEDS ORDERED: methylPREDNISolone sod succ/PF 40mg inj. IV SCH (10:45)
[2024-02-05 11:13] LABS: ALANINE AMINOTRANSFERASE 33 U/L (12-78); ALBUMIN 3.9 G/DL (3.4-5.0); ALBUMIN/GLOBULIN RATIO 0.9 (1.1-1.5); ALKALINE PHOSPHATASE 77 IU/L (46-116); ANION GAP 6 (8-16); ASPARTATE AMINO TRANSFERASE 26 U/L (10-37); BILIRUBIN,TOTAL 0.7 MG/DL (0.1-1.0); BLOOD UREA NITROGEN 15 MG/DL (7-18); BUN/CREATININE RATIO 14.9 (10.0-20.0); CALCIUM 9.1 MG/DL (8.5-10.1); CHLORIDE 99 MMOL/L (99-107); CREATININE 1.01 MG/DL (0.60-1.10); GLUCOSE 202 MG/DL (70-104); POTASSIUM 3.9 MMOL/L (3.5-5.1); SODIUM 135 MMOL/L (135-145); TOTAL PROTEIN 8.1 G/DL (6.4-8.2); eCRCL 62 ML/MIN; eGFR 74 ML/MIN
[2024-02-05] MEDS: methylPREDNISolone sod succ/PF 40mg inj. IV ONE (11:19)
[2024-02-05] MEDS: CefTRIAXone 2gm/D5W 50ml BAG 50 ML IV ONE (11:19)
[2024-02-05 11:20] LABS: PRO BRAIN NATRIURETIC PEPTIDE 647 PG/ML (0-125)
[2024-02-05] MEDS: azithromycin 250mg tablet PO ONE (11:20)
[2024-02-05] MEDS: ipratropium/albuterol 3ml nebule NEB PRN (11:42)
[2024-02-05 11:48] LABS: BASOPHILS % (AUTO) 0.4 % (0-1); EOSINOPHILS % (AUTO) 0.3 % (0-6); HEMATOCRIT 37.4 % (42.0-52.0); HEMOGLOBIN 13.2 g/dl (14.0-17.9); LYMPHOCYTES # (AUTO) 1.4 X10'3 (1.1-4.8); LYMPHOCYTES % (AUTO) 12.7 % (21-51); MEAN CORPUSCULAR HEMOGLOBIN 32.7 PG (27.0-31.0); MEAN CORPUSCULAR HGB CONC 35.3 g/dL (33.0-36.5); MEAN CORPUSCULAR VOLUME 92.8 FL (78-98); MEAN PLATELET VOLUME 7.9 FL (7.4-10.4); MONOCYTES # (AUTO) 0.3 X10'3 (0-0.9); MONOCYTES % (AUTO) 2.8 % (2-12); NEUTROPHILS # (AUTO) 9.2 X10'3 (1.8-7.7); NEUTROPHILS % (AUTO) 83.8 % (42-75); PLATELET COUNT 188 X10'3 (140-440); RED BLOOD COUNT 4.02 X10'6 (4.70-6.10); RED CELL DISTRIBUTION WIDTH 13.3 % (11.5-14.5); WHITE BLOOD COUNT 10.9 X10'3 (4.5-11.0)
[2024-02-05] MEDS: aspirin 81mg tab.chew PO ONE (12:03)
[2024-02-05] MEDS ORDERED: mag hydrox/Alum hydrox/simeth 30ml oral suspension PO PRN (13:20)
[2024-02-05] MEDS ORDERED: enoxaparin 40mg/0.4ml syringe SUBCUT SCH (13:20)
[2024-02-05] MEDS ORDERED: acetaminophen 325mg tablet PO PRN (13:20)
[2024-02-05] MEDS ORDERED: ondansetron/PF 4mg/2ml inj IV PRN (13:20)
[2024-02-05] MEDS ORDERED: morphine 2 MG/ML inj. syringe IV PRN ×2 (13:20)
[2024-02-05] MEDS ORDERED: magnesium sulf-water 4G/100mL 100 ML IV PRN (13:20)
[2024-02-05] MEDS ORDERED: potassium Cl 20 mEq SR tablet PO PRN ×2 (13:20)
[2024-02-05] MEDS ORDERED: HYDROcodone/acetaminophen 10/325mg tab PO PRN (13:20)
[2024-02-05] MEDS ORDERED: HYDROmorphone inj. 0.5 MG/0.5 ML DISP.SYRIN IV PRN (13:20)
[2024-02-05] MEDS ORDERED: magnesium Cl slow-release 64mg tablet PO PRN (13:20)
[2024-02-05] MEDS ORDERED: magnesium hydroxide 30ml (MOM) UD suspension PO PRN (13:20)
[2024-02-05] MEDS ORDERED: HYDROcodone/acetaminophen 5mg/325mg tablet PO PRN (13:20)
[2024-02-05] MEDS ORDERED: magnesium sulf-water 2g/50mL 50 ML IV PRN (13:20)
[2024-02-05] MEDS ORDERED: ATOR40TA PO (13:24)
[2024-02-05] MEDS ORDERED: UMEC1DIS INH (13:24)
[2024-02-05] MEDS ORDERED: PRED5TAB PO (13:24)
[2024-02-05] MEDS ORDERED: METF-1203 PO (13:24)
[2024-02-05] MEDS ORDERED: azithromycin/NS 500mg/250ml 250 ML IV SCH (13:25)
[2024-02-05] MEDS ORDERED: CefTRIAXone/D5W-Rocephin 1gm 50 ML IV SCH (13:25)
[2024-02-05] MEDS: HEPARIN DRIP-CARDIAC**PHARMACIST-TO-DOSE IV ONE (13:25)
[2024-02-05] MEDS ORDERED: heparin 10,000 units/1 ML INJ IV PRN (13:45)
[2024-02-05] MEDS: albuterol 2.5 MG/3 ML nebule NEB PRN (14:03)
[2024-02-05] MEDS ORDERED: glucagon, human recombinant 1mg kit SUBCUT PRN (14:10)
[2024-02-05] MEDS ORDERED: DEXTROSE 15 GM of carb/4 tabs (each vial/BOTTLE has 4 tablets) PO PRN ×2 (14:10)
[2024-02-05] MEDS ORDERED: dextrose 50%-water 50ml dispensing syringe IV PRN ×2 (14:10)
[2024-02-05] MEDS: methylPREDNISolone sod succ/PF 40mg inj. IV SCH (14:21)
[2024-02-05 14:44] LABS: HEMOGLOBIN A1C 6.7 % (4.5-6.2)
[2024-02-05] MEDS: MESSAGE TO NURSING IV ONE (14:50)
[2024-02-05 14:56] LABS: BASOPHILS % (AUTO) 0.3 % (0-1); EOSINOPHILS % (AUTO) 0.1 % (0-6); HEMATOCRIT 40.6 % (42.0-52.0); LYMPHOCYTES % (AUTO) 9.3 % (21-51); MEAN CORPUSCULAR HEMOGLOBIN 31.9 PG (27.0-31.0); MEAN CORPUSCULAR HGB CONC 34.4 g/dL (33.0-36.5); MEAN CORPUSCULAR VOLUME 92.6 FL (78-98); MEAN PLATELET VOLUME 8.1 FL (7.4-10.4); MONOCYTES # (AUTO) 0.1 X10'3 (0-0.9); NEUTROPHILS % (AUTO) 89.3 % (42-75); PLATELET COUNT 212 X10'3 (140-440); RED BLOOD COUNT 4.38 X10'6 (4.70-6.10); RED CELL DISTRIBUTION WIDTH 13.4 % (11.5-14.5); WHITE BLOOD COUNT 11.1 X10'3 (4.5-11.0)
[2024-02-05 15:07] LABS: APTT 25 SECONDS (22-32); INR 1.1 INR
[2024-02-05 15:14] LABS: MAGNESIUM 2.1 MG/DL (1.5-2.4)
[2024-02-05] MEDS: heparin 10,000 units/1 ML INJ IV ONE (15:22)
[2024-02-05] MEDS: heparin 25,000 UNIT/250ml bag 250 ML IV PRN (15:24)
[2024-02-05] MEDS ORDERED: IPRA3AMP9 NEB (15:35)
[2024-02-05] MEDS: INSULIN LISPRO 100 UNIT/ML INSULN.PEN MULTI-DOSE SQ SCH (18:07)
[2024-02-05] MEDS: azithromycin/NS 500mg/250ml 250 ML IV SCH (19:08)
[2024-02-05] MEDS: ipratropium/albuterol 3ml nebule NEB SCH (19:13)
[2024-02-05] MEDS: docusate sod 100mg capsule PO SCH (19:13)
[2024-02-05] MEDS ORDERED: IPRA3AMP31 (20:19)
[2024-02-05] MEDS: CefTRIAXone/D5W-Rocephin 1gm 50 ML IV SCH (20:21)
[2024-02-05] MEDS: insulin glargine (Lantus) pen - multi-dose SQ SCH (20:45)
[2024-02-06] VITALS (20 sets, daily range): BP systolic 92–120; BP diastolic 48–59; PULSE 71–98; RESP 16–24; TEMP 97.6–98.3; O2SAT 94–99
[2024-02-06 07:01] LABS: BASOPHILS % (AUTO) 0.2 % (0-1); EOSINOPHILS % (AUTO) 0 % (0-6); HEMOGLOBIN 12.4 g/dl (14.0-17.9); LYMPHOCYTES # (AUTO) 1.3 X10'3 (1.1-4.8); LYMPHOCYTES % (AUTO) 11.4 % (21-51); MEAN CORPUSCULAR HEMOGLOBIN 32.1 PG (27.0-31.0); MEAN CORPUSCULAR HGB CONC 34.5 g/dL (33.0-36.5); MEAN CORPUSCULAR VOLUME 93.1 FL (78-98); MEAN PLATELET VOLUME 8.3 FL (7.4-10.4); MONOCYTES # (AUTO) 0.4 X10'3 (0-0.9); MONOCYTES % (AUTO) 3.9 % (2-12); NEUTROPHILS # (AUTO) 9.8 X10'3 (1.8-7.7); NEUTROPHILS % (AUTO) 84.5 % (42-75); PLATELET COUNT 190 X10'3 (140-440); RED BLOOD COUNT 3.86 X10'6 (4.70-6.10); RED CELL DISTRIBUTION WIDTH 13.8 % (11.5-14.5); WHITE BLOOD COUNT 11.6 X10'3 (4.5-11.0)
[2024-02-06 07:16] LABS: ALANINE AMINOTRANSFERASE 29 U/L (12-78); ALBUMIN 3.3 G/DL (3.4-5.0); ALBUMIN/GLOBULIN RATIO 0.9 (1.1-1.5); ALKALINE PHOSPHATASE 61 IU/L (46-116); ANION GAP 5 (8-16); ASPARTATE AMINO TRANSFERASE 21 U/L (10-37); BILIRUBIN,TOTAL 0.3 MG/DL (0.1-1.0); BLOOD UREA NITROGEN 24 MG/DL (7-18); BUN/CREATININE RATIO 24.2 (10.0-20.0); CALCIUM 8.6 MG/DL (8.5-10.1); CHLORIDE 102 MMOL/L (99-107); CHOL/HDL RATIO 2.5 (0.00-4.99); CHOLESTEROL 134 MG/DL (0-200); CREATININE 0.99 MG/DL (0.60-1.10); GLUCOSE 188 MG/DL (70-104); HDL CHOLESTEROL 53 MG/DL (35-60); LDL CHOLESTEROL 76 MG/DL (50-100); MAGNESIUM 2.2 MG/DL (1.5-2.4); POTASSIUM 4.4 MMOL/L (3.5-5.1); SODIUM 139 MMOL/L (135-145); TRIGLYCERIDES 33 MG/DL (20-135); eCRCL 63 ML/MIN; eGFR 75 ML/MIN
[2024-02-06] MEDS: enoxaparin 40mg/0.4ml syringe SUBCUT SCH (08:31)
[2024-02-06 10:48] LABS: BILIRUBIN,URINE NEGATIVE (Neg); CLARITY,URINE CLEAR (Clear); COLOR,URINE YELLOW (Yellow); GLUCOSE, URINE 250 mg/dl (Neg); KETONES,URINE NEGATIVE (Neg); LEUKOCYTE ESTERASE ,URINE NEGATIVE (Neg); NITRITES, URINE NEGATIVE (Neg); OCCULT BLOOD,URINE NEGATIVE (Neg); PROTEIN,URINE NEGATIVE (Neg); UROBILINOGEN,URINE 0.2 E.U/dL (0.2-1.0)
[2024-02-06 10:53] LABS: URINE AMPHETAMINE SCREEN POSITIVE (Neg); URINE BARBITUATE SCREEN NEGATIVE (Neg); URINE BENZODIAZEPINES SCREEN NEGATIVE (Neg); URINE CANNABINOID SCREEN NEGATIVE (Neg); URINE COCAINE SCREEN NEGATIVE (Neg); URINE METHADONE SCREEN NEGATIVE (Neg); URINE OPIATE SCREEN NEGATIVE (Neg); URINE PHENCYCLIDINE SCREEN NEGATIVE (Neg)
[2024-02-06 10:54] LABS: UA COLLECTION TYPE NON-SPECIFIED
[2024-02-06] MEDS: guaiFENesin ER 600mg tablet PO SCH (11:32)
[2024-02-06] MEDS ORDERED: nitroGLYCERIN 0.4mg SUBLingual tab SL PRN (14:30)
[2024-02-06] MEDS ORDERED: aminophylline 250mg/10ml inj. IV PRN (14:30)
[2024-02-06] MEDS ORDERED: metoprolol tartrate 1mg/ml inj IV PRN (14:30)
[2024-02-06] MEDS: ipratropium/albuterol 3ml nebule NEB SCH (16:35)
[2024-02-07] VITALS (18 sets, daily range): BP systolic 88–107; BP diastolic 43–57; PULSE 54–96; RESP 12–24; TEMP 96.8–98.1; O2SAT 93–100
[2024-02-07] MEDS: atorvastatin 20mg tablet PO SCH (07:56)
[2024-02-07 08:58] LABS: BASOPHILS % (AUTO) 0 % (0-1); EOSINOPHILS % (AUTO) 0 % (0-6); HEMATOCRIT 39.7 % (42.0-52.0); HEMOGLOBIN 13.3 g/dl (14.0-17.9); LYMPHOCYTES # (AUTO) 1.8 X10'3 (1.1-4.8); LYMPHOCYTES % (AUTO) 7.5 % (21-51); MEAN CORPUSCULAR HEMOGLOBIN 31.9 PG (27.0-31.0); MEAN CORPUSCULAR HGB CONC 33.5 g/dL (33.0-36.5); MEAN CORPUSCULAR VOLUME 95.4 FL (78-98); MEAN PLATELET VOLUME 9.2 FL (7.4-10.4); MONOCYTES # (AUTO) 0.8 X10'3 (0-0.9); MONOCYTES % (AUTO) 3.4 % (2-12); NEUTROPHILS # (AUTO) 21.2 X10'3 (1.8-7.7); NEUTROPHILS % (AUTO) 89.1 % (42-75); PLATELET COUNT 220 X10'3 (140-440); RED BLOOD COUNT 4.16 X10'6 (4.70-6.10); RED CELL DISTRIBUTION WIDTH 13.6 % (11.5-14.5); WHITE BLOOD COUNT 23.8 X10'3 (4.5-11.0)
[2024-02-07 09:26] LABS: ALANINE AMINOTRANSFERASE 36 U/L (12-78); ALBUMIN 3.4 G/DL (3.4-5.0); ALBUMIN/GLOBULIN RATIO 0.9 (1.1-1.5); ALKALINE PHOSPHATASE 63 IU/L (46-116); ANION GAP 7 (8-16); ASPARTATE AMINO TRANSFERASE 20 U/L (10-37); BILIRUBIN,TOTAL 0.3 MG/DL (0.1-1.0); BLOOD UREA NITROGEN 37 MG/DL (7-18); BUN/CREATININE RATIO 33.9 (10.0-20.0); CHLORIDE 104 MMOL/L (99-107); CREATININE 1.09 MG/DL (0.60-1.10); GLUCOSE 196 MG/DL (70-104); MAGNESIUM 2.3 MG/DL (1.5-2.4); POTASSIUM 4.8 MMOL/L (3.5-5.1); SODIUM 140 MMOL/L (135-145); TOTAL CARBON DIOXIDE 29.4 MMOL/L (24-32); TOTAL PROTEIN 7.3 G/DL (6.4-8.2); eCRCL 57 ML/MIN; eGFR 67 ML/MIN
[2024-02-07] MEDS: regadenoson 0.4mg/5ml syringe IV PRN (11:52)
[2024-02-07] MEDS ORDERED: ASPI-1265 PO (13:47)
[2024-02-07] MEDS ORDERED: ATOR40TA PO (13:47)
[2024-02-07] MEDS ORDERED: PRED10TA23 PO (13:47)
[2024-02-07] MEDS ORDERED: GUAI-422 PO (14:40)
[2024-02-07] MEDS ORDERED: AZIT500T PO (14:40)
== END 2024-02-07 15:40 | disposition home or self-care (01) | DRG 280 ==
LOC: ER 10:22 → ED HOLD 13:23 → PCU 3S 17:11
PROVIDERS: ADMIT Internal Medicine; ATTEND Internal Medicine
PROC: 4A02XM4 Measurement of Cardiac Total Activity, External Approach (ICD-10-PCS; principal; 2024-02-07)
PROC: 3E033HZ Introduction of Radioactive Substance into Peripheral Vein, Percutaneous Approach (ICD-10-PCS; 2024-02-07)
DX: I50.31 Acute diastolic (congestive) heart failure (principal); J96.01 Acute respiratory failure with hypoxia; I21.A1 Myocardial infarction type 2; J44.1 Chronic obstructive pulmonary disease with (acute) exacerbation; J98.11 Atelectasis; E11.9 Type 2 diabetes mellitus without complications; Z20.822 Contact with and (suspected) exposure to COVID-19; B19.20 Unspecified viral hepatitis C without hepatic coma; K44.9 Diaphragmatic hernia without obstruction or gangrene; F32.A Depression, unspecified; F41.9 Anxiety disorder, unspecified; F17.210 Nicotine dependence, cigarettes, uncomplicated; G89.29 Other chronic pain; K21.9 Gastro-esophageal reflux disease without esophagitis; I27.20 Pulmonary hypertension, unspecified; M54.9 Dorsalgia, unspecified; Z80.8 Family history of malignant neoplasm of other organs or systems; Z82.3 Family history of stroke; Z80.1 Family history of malignant neoplasm of trachea, bronchus and lung; Z90.49 Acquired absence of other specified parts of digestive tract; Z82.49 Family history of ischemic heart disease and other diseases of the circulatory system
CPT/HCPCS: 36415; 71045; 78452; 80053; 80061; 80305; 81003; 82948; 83036; 83605; 83735; 83880; 84145; 84484; 85025; 85610; 85730; 87040; 87502; 87503; 87811; 93005; 93017; 93308; 94640; 94760; 96365; 96375; 97116; 97161; 97530; 99285; A4615; A6590; A9500; G0378; J0456; J0696; J1644; J1650; J1815; J2785; J2919; J7040

== ENCOUNTER 2024-02-20 01:24 | Emergency (ER) | payer MEDICARE, MEDICAID ==
[~2024-02-20] VITALS: Ht 167.6 cm; Wt 63.0 kg
[~2024-02-20 01:24] MED LIST changes: +ASPI-1265 PO; +ATOR40TA PO; +AZIT500T PO; +GUAI-422 PO; +IPRA3AMP31; +METF-1203 PO; +PRED10TA23 PO; +PRED5TAB PO; +UMEC1DIS INH
[2024-02-20 02:00] LABS: BASOPHILS # (AUTO) 0.1 X10'3 (0-0.2); BASOPHILS % (AUTO) 0.8 % (0-1); EOSINOPHILS # (AUTO) 0.3 X10'3 (0-0.9); EOSINOPHILS % (AUTO) 2.1 % (0-6); HEMATOCRIT 40.2 % (42.0-52.0); LYMPHOCYTES # (AUTO) 2.9 X10'3 (1.1-4.8); LYMPHOCYTES % (AUTO) 24.7 % (21-51); MEAN CORPUSCULAR HEMOGLOBIN 32.6 PG (27.0-31.0); MEAN CORPUSCULAR HGB CONC 34.8 g/dL (33.0-36.5); MEAN CORPUSCULAR VOLUME 93.7 FL (78-98); MEAN PLATELET VOLUME 8.3 FL (7.4-10.4); MONOCYTES # (AUTO) 0.8 X10'3 (0-0.9); MONOCYTES % (AUTO) 6.8 % (2-12); NEUTROPHILS # (AUTO) 7.7 X10'3 (1.8-7.7); NEUTROPHILS % (AUTO) 65.6 % (42-75); PLATELET COUNT 135 X10'3 (140-440); RED BLOOD COUNT 4.29 X10'6 (4.70-6.10); WHITE BLOOD COUNT 11.7 X10'3 (4.5-11.0)
[2024-02-20 02:39] LABS: ALBUMIN 3.3 G/DL (3.4-5.0); ANION GAP 6 (8-16); BLOOD UREA NITROGEN 16 MG/DL (7-18); BUN/CREATININE RATIO 17.2 (10.0-20.0); CALCIUM 9.5 MG/DL (8.5-10.1); CHLORIDE 101 MMOL/L (99-107); CREATININE 0.93 MG/DL (0.60-1.10); GLUCOSE 187 MG/DL (70-104); POTASSIUM 4.3 MMOL/L (3.5-5.1); PRO BRAIN NATRIURETIC PEPTIDE 164 PG/ML (0-125); SODIUM 139 MMOL/L (135-145); TOTAL CARBON DIOXIDE 32.2 MMOL/L (24-32); eCRCL 69 ML/MIN; eGFR 81 ML/MIN
[2024-02-20] MEDS: famotidine 20mg tablet PO ONE (03:56)
[2024-02-20] MEDS: mag hydrox/Alum hydrox/simeth 30ml oral suspension PO ONE (03:56)
[2024-02-20 04:37] VITALS: BP 106/68; PULSE 90; RESP 16; TEMP 98.5; O2SAT 99
== END 2024-02-20 04:43 | disposition home or self-care (01) ==
LOC: ER 01:25
DX: J44.1 Chronic obstructive pulmonary disease with (acute) exacerbation (principal); E11.9 Type 2 diabetes mellitus without complications; K21.9 Gastro-esophageal reflux disease without esophagitis; J45.909 Unspecified asthma, uncomplicated; G89.29 Other chronic pain; M54.9 Dorsalgia, unspecified; F41.9 Anxiety disorder, unspecified; F32.A Depression, unspecified; M19.90 Unspecified osteoarthritis, unspecified site; F12.90 Cannabis use, unspecified, uncomplicated; F15.90 Other stimulant use, unspecified, uncomplicated; F14.90 Cocaine use, unspecified, uncomplicated; Z98.890 Other specified postprocedural states; Z90.49 Acquired absence of other specified parts of digestive tract; Z91.048 Other nonmedicinal substance allergy status; Z79.82 Long term (current) use of aspirin; Z79.84 Long term (current) use of oral hypoglycemic drugs; Z79.52 Long term (current) use of systemic steroids; Z79.899 Other long term (current) drug therapy
CPT/HCPCS: 36415; 71045; 71250; 80048; 83880; 84484; 85025; 93005; 99285; A4615

== ENCOUNTER 2024-03-03 05:18 | Inpatient (IN) | payer MEDICARE, MEDICAID ==
[2024-03-03] VITALS (8 sets, daily range): PULSE 76–100; RESP 16–22; O2SAT 95–98
[~2024-03-03] VITALS: Ht 165.1 cm; Wt 57.0 kg
[~2024-03-03 05:18] MED LIST changes: -AZIT500T PO; -IPRA3AMP31; -OXYC1TAB17 PO; -PANT-47 PO
[2024-03-03] MEDS ORDERED: ipratropium/albuterol 3ml nebule NEB PRN (05:25)
[2024-03-03] MEDS: methylPREDNISolone sod succ/PF 40mg inj. IV ONE (05:40)
[2024-03-03] MEDS: CefTRIAXone 2gm/D5W 50ml BAG 50 ML IV ONE (05:41)
[2024-03-03] MEDS: diphenhydrAMINE 50 mg/ml inj IV ONE (06:06)
[2024-03-03 06:26] LABS: BASOPHILS # (AUTO) 0.1 X10'3 (0-0.2); BASOPHILS % (AUTO) 0.6 % (0-1); EOSINOPHILS # (AUTO) 0.3 X10'3 (0-0.9); EOSINOPHILS % (AUTO) 3.8 % (0-6); HEMOGLOBIN 13.7 g/dl (14.0-17.9); LYMPHOCYTES # (AUTO) 3.4 X10'3 (1.1-4.8); LYMPHOCYTES % (AUTO) 39.3 % (21-51); MEAN CORPUSCULAR VOLUME 94.4 FL (78-98); MEAN PLATELET VOLUME 8.3 FL (7.4-10.4); MONOCYTES # (AUTO) 0.8 X10'3 (0-0.9); MONOCYTES % (AUTO) 8.8 % (2-12); NEUTROPHILS # (AUTO) 4.1 X10'3 (1.8-7.7); NEUTROPHILS % (AUTO) 47.5 % (42-75); PLATELET COUNT 198 X10'3 (140-440); RED BLOOD COUNT 4.13 X10'6 (4.70-6.10); RED CELL DISTRIBUTION WIDTH 13.5 % (11.5-14.5); WHITE BLOOD COUNT 8.7 X10'3 (4.5-11.0)
[2024-03-03 06:45] LABS: ALANINE AMINOTRANSFERASE 55 U/L (12-78); ALBUMIN 3.8 G/DL (3.4-5.0); ALBUMIN/GLOBULIN RATIO 0.9 (1.1-1.5); ALKALINE PHOSPHATASE 88 IU/L (46-116); ANION GAP 5 (8-16); ASPARTATE AMINO TRANSFERASE 28 U/L (10-37); BILIRUBIN,TOTAL 0.6 MG/DL (0.1-1.0); BLOOD UREA NITROGEN 9 MG/DL (7-18); BUN/CREATININE RATIO 10.2 (10.0-20.0); CALCIUM 9.2 MG/DL (8.5-10.1); CHLORIDE 104 MMOL/L (99-107); CREATININE 0.88 MG/DL (0.60-1.10); GLUCOSE 114 MG/DL (70-104); PRO BRAIN NATRIURETIC PEPTIDE 150 PG/ML (0-125); SODIUM 142 MMOL/L (135-145); TOTAL CARBON DIOXIDE 33.4 MMOL/L (24-32); TOTAL PROTEIN 7.9 G/DL (6.4-8.2); eCRCL 66 ML/MIN; eGFR 86 ML/MIN
[2024-03-03] MEDS ORDERED: magnesium hydroxide 30ml (MOM) UD suspension PO PRN (08:30)
[2024-03-03] MEDS ORDERED: potassium Cl 20 mEq SR tablet PO PRN ×2 (08:30)
[2024-03-03] MEDS ORDERED: magnesium sulf-water 4G/100mL 100 ML IV PRN (08:30)
[2024-03-03] MEDS ORDERED: magnesium Cl slow-release 64mg tablet PO PRN (08:30)
[2024-03-03] MEDS ORDERED: ondansetron/PF 4mg/2ml inj IV PRN (08:30)
[2024-03-03] MEDS ORDERED: mag hydrox/Alum hydrox/simeth 30ml oral suspension PO PRN (08:30)
[2024-03-03] MEDS ORDERED: morphine 2 MG/ML inj. syringe IV PRN (08:30)
[2024-03-03] MEDS ORDERED: magnesium sulf-water 2g/50mL 50 ML IV PRN (08:30)
[2024-03-03] MEDS ORDERED: potassium Cl 40MEQ/1/2NS 520ml 520 ML IV PRN (08:30)
[2024-03-03] MEDS: azithromycin/NS 500mg/250ml 250 ML IV STA (08:50)
[2024-03-03 09:23] LABS: MAGNESIUM 1.8 MG/DL (1.5-2.4)
[2024-03-03] MEDS ORDERED: glucagon, human recombinant 1mg kit SUBCUT PRN ×2 (10:45→17:00)
[2024-03-03] MEDS ORDERED: DEXTROSE 15 GM of carb/4 tabs (each vial/BOTTLE has 4 tablets) PO PRN ×4 (10:45→17:00)
[2024-03-03] MEDS ORDERED: dextrose 50%-water 50ml dispensing syringe IV PRN ×4 (10:45→17:00)
[2024-03-03] MEDS: ipratropium/albuterol 3ml nebule NEB SCH (11:00)
[2024-03-03] MEDS: pantoprazole 40 MG vial IV SCH (11:23)
[2024-03-03] MEDS: levoFLOXACIN-Levaquin 500mg/D5 100 ML IV SCH (11:23)
[2024-03-03] MEDS: nicotine 14mg patch - 24hr TD SCH (11:23)
[2024-03-03] MEDS: normal saline 1000ml 1,000 ML IV SCH (11:23)
[2024-03-03] MEDS: INSULIN LISPRO 100 UNIT/ML INSULN.PEN MULTI-DOSE SQ SCH (13:29)
[2024-03-03] MEDS: methylPREDNISolone sod succ/PF 40mg inj. IV SCH (14:10)
[2024-03-03 14:41] LABS: URINE AMPHETAMINE SCREEN NEGATIVE (Neg); URINE BARBITUATE SCREEN NEGATIVE (Neg); URINE BENZODIAZEPINES SCREEN NEGATIVE (Neg); URINE CANNABINOID SCREEN NEGATIVE (Neg); URINE COCAINE SCREEN NEGATIVE (Neg); URINE METHADONE SCREEN NEGATIVE (Neg); URINE OPIATE SCREEN NEGATIVE (Neg); URINE PHENCYCLIDINE SCREEN NEGATIVE (Neg)
[2024-03-03] MEDS ORDERED: INSULIN LISPRO 100 UNIT/ML INSULN.PEN MULTI-DOSE SQ SCH (17:00)
[2024-03-03] MEDS ORDERED: NPH, human insulin isophane inj. SQ SCH (17:10)
[2024-03-03] MEDS: NPH, human insulin isophane inj. SQ ONE (17:39)
[2024-03-03] MEDS: K and/or MAG REPLACEMENT MC SCH (20:00)
[2024-03-03] MEDS ORDERED: ASPI-1397 PO (20:15)
[2024-03-03] MEDS ORDERED: ATOR40TA72 PO (20:15)
[2024-03-03] MEDS ORDERED: insulin Lispro (HumaLOG) vial - multi-dose SQ STA (21:01)
[2024-03-03] MEDS: lactobacillus rhamnosus 10,000 MMU CELLS/CAPSULE PO SCH (21:09)
[2024-03-03] MEDS: docusate sod 100mg capsule PO SCH (21:09)
[2024-03-03] MEDS: heparin, porcine 5000 units/ml vial SQ SCH (21:13)
[2024-03-03] MEDS: INSULIN LISPRO 100 UNIT/ML INSULN.PEN MULTI-DOSE SQ STA (21:17)
[2024-03-03] MEDS: insulin glargine (Lantus) pen - multi-dose SQ STA (21:41)
[2024-03-04] VITALS (18 sets, daily range): BP systolic 95–115; BP diastolic 49–69; PULSE 73–109; RESP 16–24; TEMP 97.5–98.7; O2SAT 96–100
[2024-03-04] MEDS: ipratropium/albuterol 3ml nebule NEB PRN (03:28)
[2024-03-04 06:37] LABS: BASOPHILS % (AUTO) 0.1 % (0-1); EOSINOPHILS % (AUTO) 0 % (0-6); HEMATOCRIT 35.4 % (42.0-52.0); HEMOGLOBIN 12.1 g/dl (14.0-17.9); LYMPHOCYTES # (AUTO) 0.9 X10'3 (1.1-4.8); MEAN CORPUSCULAR HEMOGLOBIN 32.5 PG (27.0-31.0); MEAN CORPUSCULAR HGB CONC 34.2 g/dL (33.0-36.5); MEAN CORPUSCULAR VOLUME 95.1 FL (78-98); MEAN PLATELET VOLUME 8.4 FL (7.4-10.4); MONOCYTES # (AUTO) 0.6 X10'3 (0-0.9); MONOCYTES % (AUTO) 5.1 % (2-12); NEUTROPHILS # (AUTO) 10.7 X10'3 (1.8-7.7); NEUTROPHILS % (AUTO) 87.8 % (42-75); PLATELET COUNT 177 X10'3 (140-440); RED BLOOD COUNT 3.72 X10'6 (4.70-6.10); RED CELL DISTRIBUTION WIDTH 13.3 % (11.5-14.5); WHITE BLOOD COUNT 12.2 X10'3 (4.5-11.0)
[2024-03-04 06:49] LABS: ALANINE AMINOTRANSFERASE 55 U/L (12-78); ALBUMIN 3.2 G/DL (3.4-5.0); ALBUMIN/GLOBULIN RATIO 0.9 (1.1-1.5); ALKALINE PHOSPHATASE 78 IU/L (46-116); ANION GAP 8 (8-16); ASPARTATE AMINO TRANSFERASE 30 U/L (10-37); BILIRUBIN,TOTAL 0.3 MG/DL (0.1-1.0); BLOOD UREA NITROGEN 24 MG/DL (7-18); BUN/CREATININE RATIO 25.3 (10.0-20.0); CALCIUM 9.2 MG/DL (8.5-10.1); CHLORIDE 103 MMOL/L (99-107); CREATININE 0.95 MG/DL (0.60-1.10); GLUCOSE 237 MG/DL (70-104); MAGNESIUM 2.2 MG/DL (1.5-2.4); POTASSIUM 4.5 MMOL/L (3.5-5.1); SODIUM 138 MMOL/L (135-145); TOTAL CARBON DIOXIDE 27.2 MMOL/L (24-32); TOTAL PROTEIN 6.8 G/DL (6.4-8.2); eCRCL 61 ML/MIN; eGFR 79 ML/MIN
[2024-03-04] MEDS: methylPREDNISolone sod succ/PF 40mg inj. IV SCH (14:24)
[2024-03-04] MEDS ORDERED: methylPREDNISolone sod succ 125mg/2ml vial IV ONE (17:05)
[2024-03-04] MEDS ORDERED: iohexol 350MG/ML 100ml bottle IV ONE (17:27)
[2024-03-04 17:59] LABS: D-DIMER 0.23 MG/L FEU (0-0.50); INR 1.1 INR
[2024-03-04] MEDS: methylPREDNISolone sod succ 125mg/2ml vial IV ONE (20:13)
[2024-03-05 02:00] VITALS: BP 141/86; PULSE 89; RESP 20; TEMP 97.7; O2SAT 94
[2024-03-05] MEDS: acetaminophen 325mg tablet PO PRN (03:20)
[2024-03-05 03:53] VITALS: PULSE 92; RESP 20; O2SAT 98
[2024-03-05 04:01] VITALS: PULSE 96; RESP 20
[2024-03-05 07:19] LABS: BASOPHILS % (AUTO) 0 % (0-1); EOSINOPHILS % (AUTO) 0 % (0-6); HEMOGLOBIN 12.4 g/dl (14.0-17.9); MEAN CORPUSCULAR HEMOGLOBIN 32.8 PG (27.0-31.0); MEAN CORPUSCULAR HGB CONC 34.4 g/dL (33.0-36.5); MEAN CORPUSCULAR VOLUME 95.4 FL (78-98); MEAN PLATELET VOLUME 9.1 FL (7.4-10.4); MONOCYTES # (AUTO) 0.4 X10'3 (0-0.9); MONOCYTES % (AUTO) 2.5 % (2-12); NEUTROPHILS # (AUTO) 14.9 X10'3 (1.8-7.7); NEUTROPHILS % (AUTO) 91.5 % (42-75); PLATELET COUNT 187 X10'3 (140-440); RED BLOOD COUNT 3.77 X10'6 (4.70-6.10); RED CELL DISTRIBUTION WIDTH 13.5 % (11.5-14.5); WHITE BLOOD COUNT 16.3 X10'3 (4.5-11.0)
[2024-03-05 07:38] LABS: ALANINE AMINOTRANSFERASE 55 U/L (12-78); ALBUMIN 3.1 G/DL (3.4-5.0); ALBUMIN/GLOBULIN RATIO 0.9 (1.1-1.5); ALKALINE PHOSPHATASE 69 IU/L (46-116); ANION GAP 4 (8-16); ASPARTATE AMINO TRANSFERASE 26 U/L (10-37); BILIRUBIN,TOTAL 0.4 MG/DL (0.1-1.0); BLOOD UREA NITROGEN 34 MG/DL (7-18); BUN/CREATININE RATIO 30.1 (10.0-20.0); CALCIUM 9.1 MG/DL (8.5-10.1); CHLORIDE 105 MMOL/L (99-107); CREATININE 1.13 MG/DL (0.60-1.10); GLUCOSE 231 MG/DL (70-104); MAGNESIUM 2.1 MG/DL (1.5-2.4); SODIUM 140 MMOL/L (135-145); TOTAL CARBON DIOXIDE 31.3 MMOL/L (24-32); TOTAL PROTEIN 6.7 G/DL (6.4-8.2); eCRCL 51 ML/MIN; eGFR 65 ML/MIN
[2024-03-05 08:10] VITALS: PULSE 89; RESP 18; O2SAT 97
[2024-03-05 08:18] VITALS: PULSE 90; RESP 22
[2024-03-05] MEDS: methylPREDNISolone sod succ/PF 40mg inj. IV SCH (09:00)
[2024-03-05] MEDS ORDERED: LACT1CAP26 PO (11:19)
[2024-03-05] MEDS ORDERED: BUDE10.2 INH (11:19)
[2024-03-05] MEDS ORDERED: ALBU8HFA INH (11:19)
[2024-03-05] MEDS ORDERED: LEVO750T68 PO (11:19)
[2024-03-05] MEDS ORDERED: PRED10TA23 PO (11:22)
[2024-03-05] MEDS ORDERED: NICO-631 TD (12:26)
== END 2024-03-05 13:06 | disposition left against medical advice (07) | DRG 193 ==
LOC: ER 05:19 → ED HOLD 08:34 → PCU 3S 23:40
PROVIDERS: ADMIT Family Medicine; ATTEND Family Medicine
PROC: B32T1ZZ Computerized Tomography (CT Scan) of Left Pulmonary Artery using Low Osmolar Contrast (ICD-10-PCS; principal; 2024-03-04)
PROC: B3201ZZ Computerized Tomography (CT Scan) of Thoracic Aorta using Low Osmolar Contrast (ICD-10-PCS; 2024-03-04)
PROC: B32S1ZZ Computerized Tomography (CT Scan) of Right Pulmonary Artery using Low Osmolar Contrast (ICD-10-PCS; 2024-03-04)
DX: J12.9 Viral pneumonia, unspecified (principal); J96.01 Acute respiratory failure with hypoxia; J44.1 Chronic obstructive pulmonary disease with (acute) exacerbation; J44.0 Chronic obstructive pulmonary disease with (acute) lower respiratory infection; D72.829 Elevated white blood cell count, unspecified; Z20.822 Contact with and (suspected) exposure to COVID-19; Z53.21 Procedure and treatment not carried out due to patient leaving prior to being seen by health care provider; F32.A Depression, unspecified; F41.9 Anxiety disorder, unspecified; G89.29 Other chronic pain; F12.90 Cannabis use, unspecified, uncomplicated; F14.90 Cocaine use, unspecified, uncomplicated; F15.90 Other stimulant use, unspecified, uncomplicated; M54.9 Dorsalgia, unspecified; E11.9 Type 2 diabetes mellitus without complications; F10.90 Alcohol use, unspecified, uncomplicated; K21.9 Gastro-esophageal reflux disease without esophagitis; Z87.891 Personal history of nicotine dependence; Z88.1 Allergy status to other antibiotic agents; Z79.82 Long term (current) use of aspirin; Z79.899 Other long term (current) drug therapy; Z79.84 Long term (current) use of oral hypoglycemic drugs; Z90.49 Acquired absence of other specified parts of digestive tract; Z90.5 Acquired absence of kidney
CPT/HCPCS: 36415; 71045; 71275; 80053; 80305; 82948; 83605; 83735; 83880; 84132; 84145; 84484; 85025; 85379; 85610; 87040; 87081; 87502; 87503; 87811; 93005; 94640; 94760; 99285; A4615; A6258; G0378; J0456; J0696; J1200; J1644; J1815; J1956; J2470; J2919; J7030; Q9967

== ENCOUNTER 2024-03-06 20:11 | Inpatient (IN) | payer MEDICARE, MEDICAID ==
[~2024-03-06] VITALS: Ht 170.2 cm; Wt 68.1 kg
[~2024-03-06 20:11] MED LIST changes: +ALBU8HFA INH; -ASPI-1265 PO; +ASPI-1397 PO; -ATOR40TA PO; +ATOR40TA72 PO; +BUDE10.2 INH; -GUAI-422 PO; +LACT1CAP26 PO; +LEVO750T68 PO; +NICO-631 TD; -PRED5TAB PO; -UMEC1DIS INH
[2024-03-06] MEDS: ipratropium/albuterol 3ml nebule NEB ONE (20:21)
[2024-03-06] MEDS: albuterol 2.5 MG/3 ML nebule NEB ONE (20:22)
[2024-03-06 20:24] VITALS: PULSE 110; RESP 18; O2SAT 95
[2024-03-06] MEDS: methylPREDNISolone sod succ 125mg/2ml vial IV ONE (20:28)
[2024-03-06] MEDS: magnesium sulf-water 2g/50mL 50 ML IV ONE (20:30)
[2024-03-06 20:32] VITALS: PULSE 105; RESP 16; O2SAT 95
[2024-03-06 20:37] LABS: BASOPHILS % (AUTO) 0.1 % (0-1); EOSINOPHILS % (AUTO) 0.4 % (0-6); HEMATOCRIT 38.2 % (42.0-52.0); HEMOGLOBIN 13.2 g/dl (14.0-17.9); LYMPHOCYTES # (AUTO) 1.2 X10'3 (1.1-4.8); LYMPHOCYTES % (AUTO) 11.1 % (21-51); MEAN CORPUSCULAR HEMOGLOBIN 32.8 PG (27.0-31.0); MEAN CORPUSCULAR HGB CONC 34.6 g/dL (33.0-36.5); MEAN CORPUSCULAR VOLUME 94.8 FL (78-98); MEAN PLATELET VOLUME 8.7 FL (7.4-10.4); MONOCYTES # (AUTO) 0.9 X10'3 (0-0.9); MONOCYTES % (AUTO) 7.9 % (2-12); NEUTROPHILS # (AUTO) 8.9 X10'3 (1.8-7.7); NEUTROPHILS % (AUTO) 80.5 % (42-75); PLATELET COUNT 183 X10'3 (140-440); RED BLOOD COUNT 4.03 X10'6 (4.70-6.10); RED CELL DISTRIBUTION WIDTH 13.7 % (11.5-14.5); WHITE BLOOD COUNT 11.1 X10'3 (4.5-11.0)
[2024-03-06 20:51] LABS: ALANINE AMINOTRANSFERASE 148 U/L (12-78); ALBUMIN 3.3 G/DL (3.4-5.0); ALKALINE PHOSPHATASE 72 IU/L (46-116); ANION GAP 4 (8-16); ASPARTATE AMINO TRANSFERASE 79 U/L (10-37); BILIRUBIN,TOTAL 0.4 MG/DL (0.1-1.0); BLOOD UREA NITROGEN 31 MG/DL (7-18); BUN/CREATININE RATIO 26.3 (10.0-20.0); CALCIUM 8.5 MG/DL (8.5-10.1); CHLORIDE 106 MMOL/L (99-107); CREATININE 1.18 MG/DL (0.60-1.10); GLUCOSE 244 MG/DL (70-104); POTASSIUM 4.4 MMOL/L (3.5-5.1); SODIUM 139 MMOL/L (135-145); TOTAL CARBON DIOXIDE 28.6 MMOL/L (24-32); TOTAL PROTEIN 6.5 G/DL (6.4-8.2); eCRCL 57 ML/MIN; eGFR 62 ML/MIN
[2024-03-06 20:58] LABS: MAGNESIUM 1.9 MG/DL (1.5-2.4); PRO BRAIN NATRIURETIC PEPTIDE 631 PG/ML (0-125)
[2024-03-07] VITALS (11 sets, daily range): PULSE 76–102; RESP 20–24; O2SAT 97–99
[2024-03-07 00:32] LABS: BILIRUBIN,URINE NEGATIVE (Neg); CLARITY,URINE CLEAR (Clear); COLOR,URINE YELLOW (Yellow); GLUCOSE, URINE 250 mg/dl (Neg); KETONES,URINE NEGATIVE (Neg); LEUKOCYTE ESTERASE ,URINE NEGATIVE (Neg); NITRITES, URINE NEGATIVE (Neg); OCCULT BLOOD,URINE NEGATIVE (Neg); PROTEIN,URINE NEGATIVE (Neg); UROBILINOGEN,URINE 0.2 E.U/dL (0.2-1.0)
[2024-03-07 00:42] LABS: UA COLLECTION TYPE CLN CATCH MIDSTREAM
[2024-03-07] MEDS ORDERED: iohexol 300mg/ml 100ml inj. ONE (03:03)
[2024-03-07] MEDS ORDERED: potassium Cl 20 mEq SR tablet PO PRN ×2 (03:40)
[2024-03-07] MEDS ORDERED: magnesium sulf-water 2g/50mL 50 ML IV PRN (03:40)
[2024-03-07] MEDS ORDERED: acetaminophen 325mg tablet PO PRN (03:40)
[2024-03-07] MEDS ORDERED: ipratropium/albuterol 3ml nebule NEB PRN (03:40)
[2024-03-07] MEDS ORDERED: magnesium hydroxide 30ml (MOM) UD suspension PO PRN (03:40)
[2024-03-07] MEDS ORDERED: magnesium Cl slow-release 64mg tablet PO PRN (03:40)
[2024-03-07] MEDS ORDERED: magnesium sulf-water 4G/100mL 100 ML IV PRN (03:40)
[2024-03-07] MEDS ORDERED: potassium Cl 40MEQ/1/2NS 520ml 520 ML IV PRN (03:40)
[2024-03-07] MEDS ORDERED: ondansetron/PF 4mg/2ml inj IV PRN (03:40)
[2024-03-07] MEDS: guaiFENesin/DM 10ml UD oral syrup PO ONE (03:55)
[2024-03-07] MEDS ORDERED: glucagon, human recombinant 1mg kit SUBCUT PRN (04:30)
[2024-03-07] MEDS ORDERED: dextrose 50%-water 50ml dispensing syringe IV PRN ×2 (04:30)
[2024-03-07] MEDS ORDERED: DEXTROSE 15 GM of carb/4 tabs (each vial/BOTTLE has 4 tablets) PO PRN ×2 (04:30)
[2024-03-07] MEDS: ipratropium/albuterol 3ml nebule NEB SCH (07:14)
[2024-03-07] MEDS: INSULIN LISPRO 100 UNIT/ML INSULN.PEN MULTI-DOSE SQ SCH (07:51)
[2024-03-07] MEDS: levoFLOXACIN-Levaquin 500mg/D5 100 ML IV SCH (07:53)
[2024-03-07] MEDS: methylPREDNISolone sod succ 125mg/2ml vial IV ONE (07:54)
[2024-03-07] MEDS: docusate sod 100mg capsule PO SCH (07:54)
[2024-03-07] MEDS: lactobacillus rhamnosus 10,000 MMU CELLS/CAPSULE PO SCH (07:54)
[2024-03-07] MEDS: aspirin 81mg, enteric-coated 1 TAB TABLET.DR PO SCH (07:54)
[2024-03-07] MEDS: atorvastatin 20mg tablet PO SCH (07:55)
[2024-03-07] MEDS: guaiFENesin ER 600mg tablet PO SCH (07:55)
[2024-03-07] MEDS: nicotine 14mg patch - 24hr TD SCH (07:56)
[2024-03-07] MEDS: heparin, porcine 5000 units/ml vial SQ SCH (07:57)
[2024-03-07] MEDS: K and/or MAG REPLACEMENT MC SCH (08:00)
[2024-03-07 09:19] LABS: MAGNESIUM 2.6 MG/DL (1.5-2.4)
[2024-03-07 13:10] LABS: ALANINE AMINOTRANSFERASE 177 U/L (12-78); ALBUMIN 3.3 G/DL (3.4-5.0); ALKALINE PHOSPHATASE 76 IU/L (46-116); ANION GAP 10 (8-16); ASPARTATE AMINO TRANSFERASE 87 U/L (10-37); BILIRUBIN,TOTAL 0.4 MG/DL (0.1-1.0); BLOOD UREA NITROGEN 27 MG/DL (7-18); BUN/CREATININE RATIO 26.5 (10.0-20.0); CALCIUM 8.9 MG/DL (8.5-10.1); CHLORIDE 103 MMOL/L (99-107); CREATININE 1.02 MG/DL (0.60-1.10); GLUCOSE 314 MG/DL (70-104); SODIUM 140 MMOL/L (135-145); TOTAL CARBON DIOXIDE 27.1 MMOL/L (24-32); TOTAL PROTEIN 6.5 G/DL (6.4-8.2); eCRCL 66 ML/MIN; eGFR 73 ML/MIN
[2024-03-07 13:18] LABS: POTASSIUM 5.1 MMOL/L (3.5-5.1)
[2024-03-07] MEDS: methylPREDNISolone sod succ 125mg/2ml vial IV SCH (14:06)
[2024-03-07] MEDS: insulin glargine (Lantus) pen - multi-dose SQ SCH (22:09)
[2024-03-08] VITALS (14 sets, daily range): BP systolic 96–129; BP diastolic 53–73; PULSE 59–107; RESP 18–24; TEMP 97.7–98.7; O2SAT 96–98
[2024-03-08 03:08] LABS: BASOPHILS % (AUTO) 0 % (0-1); EOSINOPHILS % (AUTO) 0 % (0-6); HEMATOCRIT 37.4 % (42.0-52.0); HEMOGLOBIN 12.7 g/dl (14.0-17.9); LYMPHOCYTES # (AUTO) 0.7 X10'3 (1.1-4.8); LYMPHOCYTES % (AUTO) 6.4 % (21-51); MEAN CORPUSCULAR HEMOGLOBIN 32.2 PG (27.0-31.0); MEAN CORPUSCULAR HGB CONC 33.9 g/dL (33.0-36.5); MEAN CORPUSCULAR VOLUME 94.8 FL (78-98); MEAN PLATELET VOLUME 8.5 FL (7.4-10.4); MONOCYTES # (AUTO) 0.5 X10'3 (0-0.9); MONOCYTES % (AUTO) 4.9 % (2-12); NEUTROPHILS # (AUTO) 9.8 X10'3 (1.8-7.7); NEUTROPHILS % (AUTO) 88.7 % (42-75); PLATELET COUNT 174 X10'3 (140-440); RED BLOOD COUNT 3.95 X10'6 (4.70-6.10); RED CELL DISTRIBUTION WIDTH 13.6 % (11.5-14.5); WHITE BLOOD COUNT 11.1 X10'3 (4.5-11.0)
[2024-03-08 03:51] LABS: ALANINE AMINOTRANSFERASE 190 U/L (12-78); ALKALINE PHOSPHATASE 70 IU/L (46-116); ANION GAP 5 (8-16); ASPARTATE AMINO TRANSFERASE 76 U/L (10-37); BILIRUBIN,TOTAL 0.4 MG/DL (0.1-1.0); BLOOD UREA NITROGEN 35 MG/DL (7-18); BUN/CREATININE RATIO 36.5 (10.0-20.0); CALCIUM 9.1 MG/DL (8.5-10.1); CHLORIDE 105 MMOL/L (99-107); CREATININE 0.96 MG/DL (0.60-1.10); GLUCOSE 245 MG/DL (70-104); MAGNESIUM 2.4 MG/DL (1.5-2.4); POTASSIUM 4.7 MMOL/L (3.5-5.1); PRO BRAIN NATRIURETIC PEPTIDE 325 PG/ML (0-125); SODIUM 140 MMOL/L (135-145); TOTAL CARBON DIOXIDE 30.2 MMOL/L (24-32); TOTAL PROTEIN 6.1 G/DL (6.4-8.2); eCRCL 70 ML/MIN; eGFR 78 ML/MIN
[2024-03-08] MEDS: mag hydrox/Alum hydrox/simeth 30ml oral suspension PO PRN (17:57)
[2024-03-08] MEDS: HEPARIN DRIP DVT/PE -**PHARMACIST TO DOSE IV ONE (19:00)
[2024-03-08] MEDS: heparin 10,000 units/1 ML INJ IV ONE (20:40)
[2024-03-08] MEDS: heparin 25,000 UNIT/250ml bag 250 ML IV PRN (20:41)
[2024-03-08] MEDS: INSULIN LISPRO 100 UNIT/ML INSULN.PEN MULTI-DOSE SQ SCH (20:44)
[2024-03-08] MEDS: insulin glargine (Lantus) pen - multi-dose SQ SCH (20:45)
[2024-03-09] VITALS (13 sets, daily range): BP systolic 110–180; BP diastolic 64–80; PULSE 66–106; RESP 17–23; TEMP 97.7–98.7; O2SAT 94–99
[2024-03-09 03:37] LABS: BASOPHILS % (AUTO) 0 % (0-1); EOSINOPHILS % (AUTO) 0 % (0-6); HEMATOCRIT 38.2 % (42.0-52.0); HEMOGLOBIN 12.8 g/dl (14.0-17.9); LYMPHOCYTES # (AUTO) 0.7 X10'3 (1.1-4.8); LYMPHOCYTES % (AUTO) 4.8 % (21-51); MEAN CORPUSCULAR HEMOGLOBIN 32.2 PG (27.0-31.0); MEAN CORPUSCULAR HGB CONC 33.6 g/dL (33.0-36.5); MEAN CORPUSCULAR VOLUME 95.8 FL (78-98); MEAN PLATELET VOLUME 9.3 FL (7.4-10.4); MONOCYTES # (AUTO) 0.4 X10'3 (0-0.9); MONOCYTES % (AUTO) 2.7 % (2-12); NEUTROPHILS # (AUTO) 14.2 X10'3 (1.8-7.7); NEUTROPHILS % (AUTO) 92.5 % (42-75); PLATELET COUNT 185 X10'3 (140-440); RED BLOOD COUNT 3.99 X10'6 (4.70-6.10); RED CELL DISTRIBUTION WIDTH 13.6 % (11.5-14.5); WHITE BLOOD COUNT 15.3 X10'3 (4.5-11.0)
[2024-03-09 03:54] LABS: ALANINE AMINOTRANSFERASE 231 U/L (12-78); ALBUMIN 2.9 G/DL (3.4-5.0); ALBUMIN/GLOBULIN RATIO 0.9 (1.1-1.5); ALKALINE PHOSPHATASE 68 IU/L (46-116); ANION GAP 4 (8-16); ASPARTATE AMINO TRANSFERASE 93 U/L (10-37); BILIRUBIN,TOTAL 0.4 MG/DL (0.1-1.0); BLOOD UREA NITROGEN 41 MG/DL (7-18); BUN/CREATININE RATIO 39.4 (10.0-20.0); CALCIUM 9.1 MG/DL (8.5-10.1); CHLORIDE 104 MMOL/L (99-107); CREATININE 1.04 MG/DL (0.60-1.10); GLUCOSE 302 MG/DL (70-104); MAGNESIUM 2.4 MG/DL (1.5-2.4); POTASSIUM 4.8 MMOL/L (3.5-5.1); SODIUM 139 MMOL/L (135-145); TOTAL CARBON DIOXIDE 31.1 MMOL/L (24-32); TOTAL PROTEIN 6.2 G/DL (6.4-8.2); eCRCL 64 ML/MIN; eGFR 71 ML/MIN
[2024-03-09] MEDS: MESSAGE TO NURSING IV ONE ×3 (04:21→19:50)
[2024-03-09] MEDS: pantoprazole 40 MG vial IV SCH (08:42)
[2024-03-09] MEDS: insulin glargine (Lantus) pen - multi-dose SQ SCH (20:39)
[2024-03-10] VITALS (19 sets, daily range): BP systolic 102–139; BP diastolic 52–74; PULSE 63–96; RESP 18–26; TEMP 97.9–98.4; O2SAT 91–98
[2024-03-10] MEDS: MESSAGE TO NURSING IV ONE ×3 (02:45→15:28)
[2024-03-10] MEDS: methylPREDNISolone sod succ/PF 40mg inj. IV SCH (04:47)
[2024-03-10 07:11] LABS: BASOPHILS % (AUTO) 0.1 % (0-1); EOSINOPHILS % (AUTO) 0 % (0-6); HEMATOCRIT 36.9 % (42.0-52.0); HEMOGLOBIN 12.5 g/dl (14.0-17.9); LYMPHOCYTES # (AUTO) 1.4 X10'3 (1.1-4.8); LYMPHOCYTES % (AUTO) 9.2 % (21-51); MEAN CORPUSCULAR HGB CONC 33.8 g/dL (33.0-36.5); MEAN CORPUSCULAR VOLUME 94.6 FL (78-98); MONOCYTES % (AUTO) 6.9 % (2-12); NEUTROPHILS # (AUTO) 12.6 X10'3 (1.8-7.7); NEUTROPHILS % (AUTO) 83.8 % (42-75); PLATELET COUNT 169 X10'3 (140-440); RED CELL DISTRIBUTION WIDTH 13.7 % (11.5-14.5)
[2024-03-10 07:49] LABS: ALANINE AMINOTRANSFERASE 201 U/L (12-78); ALBUMIN 2.9 G/DL (3.4-5.0); ALBUMIN/GLOBULIN RATIO 0.9 (1.1-1.5); ALKALINE PHOSPHATASE 61 IU/L (46-116); ANION GAP 5 (8-16); ASPARTATE AMINO TRANSFERASE 59 U/L (10-37); BILIRUBIN,TOTAL 0.4 MG/DL (0.1-1.0); BLOOD UREA NITROGEN 41 MG/DL (7-18); BUN/CREATININE RATIO 46.6 (10.0-20.0); CALCIUM 8.7 MG/DL (8.5-10.1); CHLORIDE 106 MMOL/L (99-107); CREATININE 0.88 MG/DL (0.60-1.10); GLUCOSE 134 MG/DL (70-104); MAGNESIUM 2.4 MG/DL (1.5-2.4); POTASSIUM 4.5 MMOL/L (3.5-5.1); SODIUM 142 MMOL/L (135-145); TOTAL CARBON DIOXIDE 30.6 MMOL/L (24-32); TOTAL PROTEIN 6.1 G/DL (6.4-8.2); eCRCL 76 ML/MIN; eGFR 86 ML/MIN
[2024-03-10] MEDS: heparin 10,000 units/1 ML INJ IV PRN (15:26)
[2024-03-10] MEDS: apixaban 5mg tablet PO SCH (18:35)
[2024-03-10] MEDS: LORazepam 2 mg/ml vial IV ONE (23:16)
[2024-03-11 03:10] VITALS: PULSE 71; RESP 28; O2SAT 95
[2024-03-11 03:19] VITALS: PULSE 78; RESP 26
[2024-03-11] MEDS: methylPREDNISolone sod succ/PF 40mg inj. IV SCH (05:41)
[2024-03-11] MEDS: apixaban 5mg tablet PO SCH (05:41)
[2024-03-11 05:58] LABS: BASOPHILS % (AUTO) 0.2 % (0-1); EOSINOPHILS % (AUTO) 0.3 % (0-6); HEMOGLOBIN 12.9 g/dl (14.0-17.9); LYMPHOCYTES # (AUTO) 2.7 X10'3 (1.1-4.8); LYMPHOCYTES % (AUTO) 19.8 % (21-51); MEAN CORPUSCULAR HEMOGLOBIN 32.5 PG (27.0-31.0); MEAN CORPUSCULAR HGB CONC 33.9 g/dL (33.0-36.5); MEAN PLATELET VOLUME 8.8 FL (7.4-10.4); MONOCYTES # (AUTO) 1.1 X10'3 (0-0.9); MONOCYTES % (AUTO) 8.4 % (2-12); NEUTROPHILS # (AUTO) 9.7 X10'3 (1.8-7.7); NEUTROPHILS % (AUTO) 71.3 % (42-75); PLATELET COUNT 179 X10'3 (140-440); RED BLOOD COUNT 3.96 X10'6 (4.70-6.10); RED CELL DISTRIBUTION WIDTH 13.5 % (11.5-14.5); WHITE BLOOD COUNT 13.6 X10'3 (4.5-11.0)
[2024-03-11 06:00] VITALS: BP 110/72; PULSE 75; RESP 27; TEMP 98.4; O2SAT 91
[2024-03-11 06:22] LABS: ALANINE AMINOTRANSFERASE 198 U/L (12-78); ALBUMIN/GLOBULIN RATIO 0.9 (1.1-1.5); ALKALINE PHOSPHATASE 64 IU/L (46-116); ANION GAP 4 (8-16); ASPARTATE AMINO TRANSFERASE 56 U/L (10-37); BILIRUBIN,TOTAL 0.5 MG/DL (0.1-1.0); BLOOD UREA NITROGEN 35 MG/DL (7-18); BUN/CREATININE RATIO 35.7 (10.0-20.0); CALCIUM 8.7 MG/DL (8.5-10.1); CHLORIDE 104 MMOL/L (99-107); CREATININE 0.98 MG/DL (0.60-1.10); GLUCOSE 183 MG/DL (70-104); MAGNESIUM 2.1 MG/DL (1.5-2.4); POTASSIUM 4.4 MMOL/L (3.5-5.1); PRO BRAIN NATRIURETIC PEPTIDE 177 PG/ML (0-125); SODIUM 139 MMOL/L (135-145); TOTAL CARBON DIOXIDE 31.4 MMOL/L (24-32); TOTAL PROTEIN 6.3 G/DL (6.4-8.2); eCRCL 68 ML/MIN; eGFR 76 ML/MIN
[2024-03-11 08:06] VITALS: PULSE 78; RESP 19; O2SAT 90
[2024-03-11] MEDS ORDERED: LEVO-65 PO (08:50)
[2024-03-11] MEDS ORDERED: GUAI600T45 PO (08:50)
[2024-03-11 10:00] VITALS: BP 123/68; PULSE 92; RESP 18; TEMP 98.2; O2SAT 98
[2024-03-11] MEDS ORDERED: PRED10TA23 PO (10:52)
[2024-03-11] MEDS ORDERED: APIX5TAB3 PO (11:45)
[2024-03-11 12:00] VITALS: RESP 32; O2SAT 98
[2024-03-11] MEDS ORDERED: NICO-631 TOP (14:34)
== END 2024-03-11 15:00 | disposition home or self-care (01) | DRG 189 ==
LOC: ER 20:11 → ED HOLD 03-07 00:40 → ORTHO 4S 03-08 07:44
PROVIDERS: ADMIT Internal Medicine Critical Care Medicine; ATTEND Family Medicine
DX: J96.01 Acute respiratory failure with hypoxia (principal); J44.1 Chronic obstructive pulmonary disease with (acute) exacerbation; I82.621 Acute embolism and thrombosis of deep veins of right upper extremity; C74.91 Malignant neoplasm of unspecified part of right adrenal gland; J98.11 Atelectasis; E11.9 Type 2 diabetes mellitus without complications; F32.A Depression, unspecified; F41.9 Anxiety disorder, unspecified; G89.29 Other chronic pain; M54.9 Dorsalgia, unspecified; F12.90 Cannabis use, unspecified, uncomplicated; J43.8 Other emphysema; I25.10 Atherosclerotic heart disease of native coronary artery without angina pectoris; F14.90 Cocaine use, unspecified, uncomplicated; F15.90 Other stimulant use, unspecified, uncomplicated; R74.01 Elevation of levels of liver transaminase levels; K21.9 Gastro-esophageal reflux disease without esophagitis; F10.90 Alcohol use, unspecified, uncomplicated; Z87.891 Personal history of nicotine dependence; Z90.49 Acquired absence of other specified parts of digestive tract; Z88.1 Allergy status to other antibiotic agents; Z79.82 Long term (current) use of aspirin; Z79.899 Other long term (current) drug therapy; Z79.84 Long term (current) use of oral hypoglycemic drugs; Z95.1 Presence of aortocoronary bypass graft; Z85.528 Personal history of other malignant neoplasm of kidney; Z90.5 Acquired absence of kidney
CPT/HCPCS: 36415; 71045; 71250; 71260; 74177; 80053; 81003; 82948; 83036; 83735; 83880; 84145; 84484; 85025; 85730; 87081; 93005; 94640; 94760; 97161; 97530; 99291; A6258; G0378; J1644; J1815; J1956; J2060; J2470; J2919; J7040; Q9967